=== PATIENT | female | born 1985 | race Caucasian/White ===

== ENCOUNTER 2016-06-28 00:19 | Emergency (ER) | payer MEDICAID, OTHER, SELFPAY ==
[2016-06-28 00:36] VITALS: BP 144/97
[2016-06-28] MEDS ORDERED: Oxymetazoline 0.05% Nasal Spray 15 ML Bottle NAS STA (00:42)
--- NOTE | 2016-06-28 00:50 | EDM.PDOC ---
ED HPI ENT - General Chief Complaint: ENT Problem Stated Complaint: LEFT EARACHE Time Seen by Provider: 06/28/16 00:28 Source of Information: Reports: Patient, RN notes reviewed History Limitations: Reports: No limitations - History of Present Illness INITIAL COMMENTS - FREE TEXT/NARRATIVE: The patient states that she developed a left earache morning, 2016. There was no injury to the ear. She reports a recent viral URI, and she is a smoker. The patient instilled some "Ear On" solution, and when that did not work, she instilled some rubbing alcohol into the ear. This did not work, either. No prior similar symptoms. The patient does not have a PCP. - Related Data Allergies/ADRs: Allergies Allergy/AdvReac Type Severity Reaction Status Date / Time latex Allergy Rash Verified 06/28/16 00:30 Home Meds: Home Meds . [No Known Home Meds] 09/24/14 [History] Past Medical History - Past Surgical History HEENT Surgical History: Reports: Oral surgery (Numerous dental extractions) GI Surgical History: Reports: Cholecystectomy Female Surgical History: Reports: Tubal ligation Social & Family History - Tobacco Use Smoking Status *Q: Current Every Day Smoker Years of Tobacco use: 15 Packs/Tins Daily: 0.3 Packs/Tins Daily Comment: Down from 1 ppd - Caffeine Use Caffeine Use: Reports: None - Alcohol Use Alcohol Use History: Yes Date/Time of Last Drink Comment: Quit 03/31/2016 - Recreational Drug Use Recreational Drug Use: No - Living Situation & Occupation Living situation: Reports: , with spouse, with family (4 kids) Occupation: unemployed ED ROS ENT - Review of Systems Review Of Systems: See Below Constitutional: Reports: no symptoms HEENT: Reports: Other (Current viral URI symptoms) Respiratory: Reports: No Symptoms Cardiovascular: Reports: No symptoms Endocrine: Reports: no symptoms GI/Abdominal: Reports: No symptoms : Reports: no symptoms Musculoskeletal: Reports: no symptoms Skin: Reports: no symptoms Neurological: Reports: No Symptoms Psychiatric: Reports: No symptoms Hematologic/Lymphatic: Reports: no symptoms Immunologic: Reports: no symptoms ED EXAM, ENT - Physical Exam Exam: See Below Exam Limited By: No limitations General Appearance: alert, WD/WN, mild distress Eye Exam: bilateral eye: EOMI, normal inspection Ears: normal external exam, normal canal, hearing grossly normal, TM erythema ( Left only. No sign of purulent. No air-fluid level seen, but the tympanic membrane appears to be bulging.) Nose: normal inspection, normal mucousa, no blood Mouth/Throat: Normal inspection, Normal gums, Normal lips, Normal teeth, Other ( Posterior oropharyngeal erythema) Head: atraumatic, normocephalic Neck: normal inspection, supple, non-tender, full range of motion. No: lymphadenopathy (L), lymphadenopathy (R) Course - Vital Signs Last Recorded V/S: Last Vital Signs Temp 36.2 C 06/28/16 00:27 Pulse 89 06/28/16 00:27 Resp 18 06/28/16 00:27 BP 144/97 H 06/28/16 00:27 Pulse Ox 99 06/28/16 00:27 - Orders/Labs/Meds Meds: Medications Discontinued Medications Generic Name Dose Route Start Last Admin Trade Name Freq PRN Reason Stop Dose Admin Oxymetazoline HCl 1 ml 06/28/16 00:42 06/28/16 00:48 Afrin Original 0.05% Nasal [place] WINSOME 06/28/16 00:43 1 ml ONETIME STA Administration - Re-Assessments/Exams Free Text/Narrative Re-Assessment/Exam: 06/28/16 00:50 The patient appears to have left serous otitis media, likely related to swelling of the left eustachian tube due to a viral URI, made worse by smoking. For [facility]'s purposes, I will have the nurse instill oxymetazoline nasal spray, and then tomorrow have her purchase purchase a pump mist bottle of the same, along with nasal saline spray without a preservative. I will refer her to ENT, should her symptoms not improve. Departure - Departure Time of Disposition: 00:52 Disposition: Home, Self-Care 01 Condition: fair Clinical Impression: Left serous otitis media Instructions: Otitis Media, Adult, [id number] Referrals: PCP,None [Primary Care Provider] - Estevan Casas MD [Physician] - Forms: ED Department Discharge Additional Instructions: [facility] a [facility] earache. On examination, you have inflammation of your left middle ear, a condition known as serous otitis media. There is no infection, therefore antibiotics won' t help. The nurse had you spray some nasal decongestant spray up your nose. In the morning, purchase oxymetazoline nasal spray in a "pump mist bottle - if you have trouble finding this, as your pharmacist to help you. Generic scar just as good as brand names. [place] one spray up your left nostril, wait 5 minutes, then spray a second spray up your left nostril. Repeat this every 12 hours, for a maximum of 5 days. Do not use this beyond 5 days, as that can then CAUSE swelling. Also purchase nasal saline in a pressurized can, such as "Simply Saline". It is important that the saline you purchase DOES NOT HAVE A PRESERVATIVE. [place] this up your left nostril many times per day. One of the reasons this happened to you is because you smoke. We STRONGLY recommend you consider quitting smoking. If your symptoms do not improve within a couple of days, please followup with the ENT Dr. Casas. If any other problems, please do not hesitate to return to the ER.
== END 2016-06-28 01:04 | disposition home or self-care (01) ==
LOC: JD.ED 00:19
DX: H65.02 Acute serous otitis media, left ear (principal); F17.210 Nicotine dependence, cigarettes, uncomplicated; Z90.49 Acquired absence of other specified parts of digestive tract; Z91.040 Latex allergy status
CPT/HCPCS: 99282; A9270

== ENCOUNTER 2017-07-09 17:22 | Emergency (ER) | payer SELFPAY ==
[2017-07-09 17:36] VITALS: BP 145/83
--- NOTE | 2017-07-09 19:05 | EDM.PDOC ---
ED HPI GENERAL MEDICAL PROBLEM - General Chief Complaint: Gastrointestinal Problem Stated Complaint: BLOOD IN STOOL Time Seen by Provider: 07/09/17 18:20 Source of Information: Reports: Patient History Limitations: Reports: No Limitations - History of Present Illness INITIAL COMMENTS - FREE TEXT/NARRATIVE: The patient states that she had painless bright red blood per rectum with a bowel movement around 17:30 tonight. She states that after her bowel movement, en route to the ED, she developed lower abdominal cramps and some rectal pain. She states that she felt lightheaded, although it may have been related to an anxiety attack. The patient states that she has a history of external hemorrhoids, but has not previously had bleeding like that. The patient does not have a PCP. Abdominal Pain Score (Numeric/FACES): 8 - Related Data Allergies Allergy/AdvReac Type Severity Reaction Status Date / Time latex Allergy Rash Verified 07/09/17 17:36 Home Meds: Home Meds . [No Known Home Meds] 09/24/14 [History] Past Medical History Gastrointestinal History: Reports: Hemorrhoids (external) [employer]INTENANCE History: Reports: Therapeutic (x 1) Endocrine/Metabolic History: Reports: Obesity/BMI 30+ - Past Surgical History HEENT Surgical History: Reports: Oral Surgery ([place] teeth extraction) GI Surgical History: Reports: Cholecystectomy Female Surgical History: Reports: D&C (x 1), Tubal Ligation, Other (See Below ) (Therapeutic x 1) Social & Family History - Tobacco Use Smoking Status *Q: Current Every Day Smoker Years of Tobacco use: 20 Packs/Tins Daily: 0.4 Packs/Tins Daily Comment: Down from 03/23 ppd - Caffeine Use Caffeine Use: Reports: None - Alcohol Use Alcohol Use History: Yes Alcohol Use Frequency: Socially - Recreational Drug Use Recreational Drug Use: No - Living Situation & Occupation Living situation: Reports: , with Spouse, with Family (4 kids) Occupation: Unemployed ED ROS GENERAL - Review of Systems Review Of Systems: ROS reveals no pertinent complaints other than HPI. Neurological: Reports: Headache (frequent) ED EXAM, GI/ABD - Physical Exam Exam: See Below Exam Limited By: No Limitations General Appearance: Alert, WD/WN, No Apparent Distress Eyes: Bilateral: Normal Appearance, EOMI Ears: Normal External Exam, Hearing Grossly Normal Nose: Normal Inspection, No Blood Throat/Mouth: Normal Inspection, Normal Lips, Normal Voice, No Airway Compromise Head: Atraumatic, Normocephalic Neck: Normal Inspection, Full Range of Motion Respiratory/Chest: No Respiratory Distress, Lungs Clear, Normal Breath Sounds, No Accessory Muscle Use Cardiovascular: Normal Peripheral Pulses, Regular Rate, Rhythm, No Gallop, No JVD, No Murmur, No Rub GI/Abdominal Exam: Normal Bowel Sounds, Soft, Non-Tender, No Organomegaly, No Distention, No Abnormal Bruit, No Mass, Other (Obese) (Female) Exam: Deferred Rectal (Female) Exam: Normal Exam, Normal Rectal Tone, Heme + Stool, Hemorrhoids (small, noninflamed. Some tenderness to the 7:00 hemorrhoid. No active bleeding.). No: Perirectal Abscess (None palpated), Rectal Fissure ( None seen) Back Exam: Normal Inspection, Full Range of Motion, NT Extremities: Normal Inspection, Normal Range of Motion, No Pedal Edema, Normal Capillary Refill Neurological: Alert, Oriented, Normal Cognition, No Motor/Sensory Deficits Psychiatric: Normal Affect Skin Exam: Warm, Dry, Intact, Normal Color, No Rash Course - Vital Signs Last Recorded V/S: Last Vital Signs Temp 37.1 C 07/09/17 17:33 Pulse 97 07/09/17 17:33 Resp 16 07/09/17 17:33 BP 145/83 H 07/09/17 17:33 Pulse Ox 97 07/09/17 17:33 Orthostatic Blood Pressure [ 135/82 Standing] Orthostatic Blood Pressure [ 129/85 Supine] - Orders/Labs/Meds Orders: Active Orders 24 hr Category Date Time Status Hemoccult [Fecal Occult Blood Collection] [RC] Care 07/09/17 18:55 Active ASDIRECTED Orthostatic Vital Signs [RC] ASDIRECTED Care 07/09/17 18:57 Active Orthostatic Vital Signs [RC] STAT Care 07/09/17 18:59 Inactive CBC WITH MANUAL DIFF [HEME] Stat Lab 07/09/17 20:13 Results Labs: Laboratory Tests 07/09/17 Range/Units 20:13 WBC 6.87 (3.98-10.04) K/mm3 RBC 4.36 (3.98-5.22) M/mm3 Hgb 15.4 (11.2-15.7) gm/L Hct 44.4 (34.1-44.9) % MCV 101.8 H (79.4-94.8) fl MCH 35.3 H (25.6-32.2) pg MCHC 34.7 (32.2-35.5) g/dl RDW Std Deviation 46.0 (36.4-46.3) fL Plt Count 281 (182-369) K/mm3 MPV 10.3 (9.4-12.3) fl - Re-Assessments/Exams Free Text/Narrative Re-Assessment/Exam: 07/09/17 19:00 On rectal exam, the patient complained of quite a bit of tenderness, however, I did not palpate any perirectal swelling consistent with a perirectal abscess, and by history, the patient reported painless bright red blood per rectum. Perirectal abscesses cause significant discomfort, however, do not bleed much, if any. Clinically, I suspect that the patient is suffering from non-inflamed external hemorrhoids, but will require a colonoscopy to be sure. For today's purposes, I have ordered orthostatics and a CBC. Presuming both are within normal limits, I will refer the patient Dr. Posada for colonoscopy. I do not see an indication for a CT scan to evaluate for a perirectal abscess at this time. 07/09/17 19:20 The patient is not orthostatic. 07/09/17 20:13 Notified by Yelitza HURST that lab is only now attempting to draw the CBC. 07/09/17 20:36 Test results discussed with the patient. As above, the patient is not orthostatic, and her hemoglobin is well within normal limits. I will discharge her home with a referral to Dr. Posada, with whom she can arrange for an outpatient colonoscopy. Departure - Departure Time of Disposition: 20:37 Disposition: Home, Self-Care 01 Condition: Good Clinical Impression: BRBPR (bright red blood per rectum) - Discharge Information Referrals: PCP,None [Primary Care Provider] - Donald Posada MD [Physician] - Forms: ED Department Discharge Additional Instructions: You were seen in the emergency room for painless bright red blood per rectum. Workup in the ER included a CBC and positional blood pressure checks, both of which were normal. On physical examination, no obvious source of bleeding was found, but based on your history, it is MOST LIKELY due to an external hemorrhoid. Follow-up with the surgeon Dr. Posada to arrange for a colonoscopy. If any other problems, please do not hesitate to return to the ER. - My Orders Last 24 Hours: My Active Orders 07/09/17 18:55 Hemoccult [Fecal Occult Blood Collection] [RC] ASDIRECTED 07/09/17 18:57 Orthostatic Vital Signs [RC] ASDIRECTED 07/09/17 18:59 Orthostatic Vital Signs [RC] STAT 07/09/17 20:13 CBC WITH MANUAL DIFF [HEME] Stat - Assessment/Plan Last 24 Hours: My Active Orders 07/09/17 18:55 Hemoccult [Fecal Occult Blood Collection] [RC] ASDIRECTED 07/09/17 18:57 Orthostatic Vital Signs [RC] ASDIRECTED 07/09/17 18:59 Orthostatic Vital Signs [RC] STAT 07/09/17 20:13 CBC WITH MANUAL DIFF [HEME] Stat
== END 2017-07-09 20:45 | disposition home or self-care (01) ==
LOC: JD.ED 17:22
DX: K62.5 Hemorrhage of anus and rectum (principal); F17.210 Nicotine dependence, cigarettes, uncomplicated; Z91.040 Latex allergy status; Z90.49 Acquired absence of other specified parts of digestive tract
CPT/HCPCS: 36415; 82270; 85025; 99283; 99283-25

== ENCOUNTER 2017-07-21 10:22 | Day surgery (SDC) | payer SELFPAY ==
[~2017-07-21 10:22] MED LIST: Dexamethasone 4 MG/ML SDV ONE; Lactated Ringers 1,000 ML IV SCH; Lidocaine 1% 4 ML ONE; Lidocaine 1%/Sod Bicarbonate in NS 8.4% 1 ML Syringe IDERM PRN; Midazolam 1 MG/ML 2 ML SDV ONE; Ondansetron 4 MG/2 ML SDV ONE; Propofol 200 MG/20 ML SDV ONE; Sodium Chloride 0.9% 10 ML Syringe FLUSH PRN; fentaNYL 100 MCG/2 ML SDV ONE
--- NOTE | 2017-07-21 10:48 | PCM.PREANE ---
Preanesthetic Assessment - Procedure Proposed Procedure: Anoscopy with rubber band ligation - Anesthesia/Transfusion/Family Hx Anesthesia History: Prior Anesthesia Reaction Type of Anesthesia Reaction: Excessive Nausea/Vomiting Family History of Anesthesia Reaction: No Transfusion History: No Prior Transfusion(s) - Review of Systems General: No Symptoms Pulmonary: No Symptoms Cardiovascular: No Symptoms Gastrointestinal: Other (GERD) Neurological: No Symptoms Other: Reports: Depression, Anxiety - Physical Assessment NPO Status Date: 07/20/17 NPO Status Time: 23:59 Pulse: 72 O2 Sat by Pulse Oximetry: 97 Respiratory Rate: 16 Blood Pressure: 120/87 Temperature: 36.4 C Height: 1.68 m Weight: 108.409 kg ASA Class: 2 Mental Status: Alert & Oriented x3 Airway Class: Mallampati = 2 Dentition: Reports: Normal Dentition Thyro-Mental Finger Breadths: 3 Mouth Opening Finger Breadths: 3 ROM/Head Extension: Full Lungs: Clear to Auscultation, Normal Respiratory Effort Cardiovascular: Regular Rate, Regular Rhythm - Allergies Allergies/Adverse Reactions: Allergies Allergy/AdvReac Type Severity Reaction Status Date / Time latex Allergy Rash Verified 07/20/17 12:53 - Blood Blood Available: No Product(s) Available: None - Anesthesia Plan Pre-Op Medication Ordered: None - Acknowledgements Anesthesia Type Planned: MAC Pt an Appropriate Candidate for the Planned Anesthesia: Yes Alternatives and Risks of Anesthesia Discussed w Pt/Guardian: Yes Pt/Guardian Understands and Agrees with Anesthesia Plan: Yes PreAnesthesia Questionnaire HEENT History: Reports: None Cardiovascular History: Reports: Heart Murmur Other Respiratory History: smoker Gastrointestinal History: Reports: GERD, Hemorrhoids, Other (See Below) Other Gastrointestinal History: gastric ulcer Genitourinary History: Reports: None 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: , 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 Musculoskeletal History: Reports: None Neurological History: Reports: Migraines Psychiatric History: Reports: Anxiety, Depression Endocrine/Metabolic History: Reports: Obesity/BMI 30+ Hematologic History: Reports: None Immunologic History: Reports: None Oncologic (Cancer) History: Reports: None Dermatologic History: Reports: None - Past Surgical History Head Surgeries/Procedures: Reports: None HEENT Surgical History: Reports: Oral Surgery Cardiovascular Surgical History: Reports: None Respiratory Surgical History: Reports: None GI Surgical History: Reports: Cholecystectomy Female Surgical History: Reports: D&C, Tubal Ligation, Other (See Below) Endocrine Surgical History: Reports: None Neurological Surgical History: Reports: None Musculoskeletal Surgical History: Reports: None Oncologic Surgical History: Reports: None Dermatological Surgical History: Reports: None - SUBSTANCE USE Smoking Status *Q: Current Every Day Smoker Tobacco Use Within Last Twelve Months: Cigarettes Second Hand Smoke Exposure: No Recreational Drug Use History: No - HOME MEDS Home Medications: Home Meds Aspirin/Acetaminophen/Caffeine [Migraine Relief Caplet] 1 - 2 tab PO Q6H PRN 04/08 [History] Melatonin 1 mg PO BEDTIME PRN 07/20/17 [History] - CURRENT (IN HOUSE) MEDS Current Meds: Current Medications Lactated Ringer's (Ringers, Lactated) 1,000 mls @ 125 mls/hr IV ASDIRECTED TAMMY Stop: 07/21/17 18:00 Lidocaine/Sodium Bicarbonate (Buffered Lidocaine 1% In Ns 8.4%) 0.25 ml IDERM ONETIME PRN PRN Reason: Prior to IV Start Stop: 07/21/17 18:00 Sodium Chloride (Saline Flush) 10 ml FLUSH ASDIRECTED PRN PRN Reason: Keep Vein Open Stop: 07/21/17 18:00 Discontinued Medications Dexamethasone (Dexamethasone) Confirm Administered Dose 4 mg .ROUTE .STK-MED ONE Stop: 07/21/17 10:15 Fentanyl (Sublimaze) Confirm Administered Dose 100 mcg .ROUTE .STK-MED ONE Stop: 07/21/17 10:14 Lidocaine HCl (Xylocaine-Mpf 1%) Confirm Administered Dose 4 mls @ as directed .ROUTE .STK-MED ONE Stop: 07/21/17 10:15 Midazolam HCl (Versed 1 Mg/Ml) Confirm Administered Dose 2 mg .ROUTE .STK-MED ONE Stop: 07/21/17 10:14 Ondansetron HCl (Zofran) Confirm Administered Dose 4 mg .ROUTE .STK-MED ONE Stop: 07/21/17 10:15 Propofol (Diprivan 20 Ml) Confirm Administered Dose 200 mg .ROUTE .STK-MED ONE Stop: 07/21/17 10:14
--- NOTE | 2017-07-21 11:14 | PCM.OPNOTE ---
- General Post-Op/Procedure Note Date of Surgery/Procedure: 07/21/17 Operative Procedure(s): 1. Anoscopy. 2. 3 column rubber band ligation of internal hemorrhoids Findings: 3 column uncomplicated internal hemorrhoids Pre Op Diagnosis: Grade 2 symptomatic hemorrhoids Post-Op Diagnosis: Same Anesthesia Technique: MAC, Moderate Sedation Primary Surgeon: Donald Posada Pathology: None EBL in mLs: 0 Complications: None Condition: Good Free Text/Narrative:: After adequate IV sedation and analgesia was obtained the patient was placed in the prone jackknife position with her buttocks taped and with monitoring. Perianal inspection revealed the slightly prolapsing internal 3 column hemorrhoids. Anoscopy confirmed the hemorrhoids. Rubber bands were placed in the right posterior right anterior and left lateral positions. She tolerated the procedure without any issues.
--- NOTE | 2017-07-21 11:23 | PCM48HPAN ---
Post Anesthesia Note - EVALUATION WITHIN 48HRS OF ANESTHETIC Vital Signs in Normal Range: Yes Patient Participated in Evaluation: Yes Respiratory Function Stable: Yes Airway Patent: Yes Cardiovascular Function Stable: Yes Hydration Status Stable: Yes Pain Control Satisfactory: Yes Nausea and Vomiting Control Satisfactory: Yes Mental Status Recovered: Yes Pulse Rate: 77 SaO2: 95 Resp Rate: 12 Temperature: 36.2 C Blood Pressure: 177/54
[2017-07-21 11:29] VITALS: BP 117/54
[2017-07-21] MEDS ORDERED: Ketorolac 30 MG/ML SDV IVPUSH SCH (11:38)
== END 2017-07-21 12:00 | disposition home or self-care (01) ==
LOC: JD.SDS 10:22
PROVIDERS: ATTEND Surgery
DX: K64.1 Second degree hemorrhoids (principal); F17.210 Nicotine dependence, cigarettes, uncomplicated; K21.9 Gastro-esophageal reflux disease without esophagitis; G43.909 Migraine, unspecified, not intractable, without status migrainosus; F41.9 Anxiety disorder, unspecified; F32.9 Major depressive disorder, single episode, unspecified; Z79.899 Other long term (current) drug therapy
CPT/HCPCS: 46221; J1100; J1885; J2001; J2250; J2405; J3010; J7120; J2704

== ENCOUNTER 2019-04-20 21:11 | Emergency (ER) | payer MEDICAID, OTHER ==
[2019-04-20 21:21] VITALS: BP 145/85; PULSE 93
[2019-04-20] MEDS ORDERED: Ondansetron 4 MG/2 ML SDV IVPUSH ONE (21:39)
[2019-04-20] MEDS ORDERED: HYDROmorphone 1 MG/ML Syringe IVPUSH STA (21:39)
[2019-04-20] MEDS ORDERED: Sodium Chloride 0.9% 1,000 ML IV ONE (21:40)
--- NOTE | 2019-04-20 22:02 | EDM.PDOC ---
ED HPI GENERAL MEDICAL PROBLEM - General Chief Complaint: Abdominal Pain Stated Complaint: STOMACH PAIN, BACK PAIN COUGHING Time Seen by Provider: 04/20/19 21:34 Source of Information: Reports: Patient, RN Notes Reviewed History Limitations: Reports: No Limitations - History of Present Illness INITIAL COMMENTS - FREE TEXT/NARRATIVE: Patient is a 33-year-old female who presents to the ED for the evaluation of multiple different complaints. Patient reports having a productive cough for around 1 week now. She states that she is getting some brown chunky like mucus coming up with her cough. However she denies any shortness of breath. Patient notes that yesterday she started having some nausea and loose stools as well, and states she has vomited 5 or 6 times a day with 2 loose stools. She is complaining of fevers, chills, headache, all over body aches, dysuria, and only being able to pee a little bit. She states she is not able to keep much down for food or fluids at all. She tried to drink a little bit of water today however she threw it right back up. Patient states that the vomiting and all over body pain is worsened by the harsh cough as well. Patient notes that the nausea vomiting and diarrhea all started around the morning hours of April 19. She also states that her has strep a as well. Patient states she has had a prior cholecystectomy, but still retains her appendix. Treatments [employer] FINISHING: Reports: Other (see below) Other Treatments [employer]: antacids Middle Abdominal Pain Score (Numeric/FACES): 10 - Related Data Allergies Allergy/AdvReac Type Severity Reaction Status Date / Time latex Allergy Rash Verified 07/20/17 12:53 Home Meds: Home Meds Ondansetron [Zofran ODT] 4 mg PO Q8H PRN #12 tab.dis 04/20/19 [Rx] cephALEXin [Cephalexin] 500 mg PO BID #10 capsule 04/20/19 [Rx] Past Medical History HEENT History: Reports: None Cardiovascular History: Reports: Heart Murmur Other Respiratory History: smoker Gastrointestinal History: Reports: GERD, Hemorrhoids, Other (See Below) Other Gastrointestinal History: gastric ulcer Genitourinary History: Reports: None 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 Neurological History: Reports: Migraines Psychiatric History: Reports: Anxiety, Depression Endocrine/Metabolic History: Reports: Obesity/BMI 30+ Hematologic History: Reports: None Immunologic History: Reports: None Oncologic (Cancer) History: Reports: None Dermatologic History: Reports: None - Past Surgical History Head Surgeries/Procedures: Reports: None HEENT Surgical History: Reports: Oral Surgery Cardiovascular Surgical History: Reports: None Respiratory Surgical History: Reports: None GI Surgical History: Reports: Cholecystectomy Female Surgical History: Reports: D&C, Tubal Ligation Endocrine Surgical History: Reports: None Neurological Surgical History: Reports: None Musculoskeletal Surgical History: Reports: None Oncologic Surgical History: Reports: None Dermatological Surgical History: Reports: None Social & Family History - Tobacco Use Smoking Status *Q: Current Every Day Smoker Years of Tobacco use: 15 Packs/Tins Daily: 0.3 Second Hand Smoke Exposure: Yes - Caffeine Use Caffeine Use: Reports: Coffee, Energy Drinks, Tea - Recreational Drug Use Recreational Drug Use: No - Living Situation & Occupation Living situation: Reports: , with Spouse, with Family (4 kids) Occupation: Unemployed ED ROS GENERAL - Review of Systems Review Of Systems: See Below Constitutional: Reports: Fever, Chills, Malaise (generalized) Respiratory: Reports: Cough, Sputum. Denies: Shortness of Breath Cardiovascular: Denies: Chest Pain GI/Abdominal: Reports: Abdominal Pain (generalized, but worse in epigastrium), Diarrhea, Nausea, Vomiting : Reports: Dysuria, Urinary Retention (states she is only peeing a little bit) ED EXAM, GI/ABD - Physical Exam Exam: See Below Exam Limited By: No Limitations General Appearance: Alert, WD/WN, No Apparent Distress (pt appears a little over dramatic in presentation, not actively heaving, but has emesis bag next to her) Eyes: Bilateral: Normal Appearance, EOMI Nose: Normal Inspection Throat/Mouth: Normal Inspection, Normal Lips, Normal Teeth, Normal Gums, Normal Oropharynx, Normal Voice, No Airway Compromise Head: Atraumatic, Normocephalic Neck: Normal Inspection Respiratory/Chest: No Respiratory Distress, Lungs Clear, Normal Breath Sounds, No Accessory Muscle Use, Chest Non-Tender Cardiovascular: Normal Peripheral Pulses, Regular Rate, Rhythm, No Murmur GI/Abdominal Exam: Normal Bowel Sounds, Soft, No Distention, No Mass, Tender ( over epigastrium) Extremities: Normal Inspection, Normal Capillary Refill Neurological: Alert, Oriented, CN II-XII Intact (grossly), Normal Cognition, No Motor/Sensory Deficits Psychiatric: Normal Affect, Normal Mood Skin Exam: Warm, Dry, Intact, Normal Color, No Rash Course - Vital Signs Last Recorded V/S: Last Vital Signs Temp 97.8 F 04/20/19 21:17 Pulse 93 04/20/19 21:17 Resp 24 H 04/20/19 21:17 BP 145/85 H 04/20/19 21:17 Pulse Ox 98 04/20/19 21:17 - Orders/Labs/Meds Orders: Active Orders 24 hr Category Date Time Status CULTURE STREP A CONFIRMATION [] Stat Lab 04/20/19 21:50 Results CULTURE URINE [] Routine Lab 04/20/19 22:35 Results STREP SCRN A RAPID W CULT CONF [] Stat Lab 04/20/19 21:50 Results Labs: Laboratory Tests 04/20/19 04/20/19 04/20/19 Range/Units 21:50 21:50 22:05 WBC 11.57 H (3.98-10.04) K/mm3 RBC 4.50 (3.98-5.22) M/mm3 Hgb 15.7 (11.2-15.7) gm/dl Hct 44.4 (34.1-44.9) % MCV 98.7 H (79.4-94.8) fl MCH 34.9 H (25.6-32.2) pg MCHC 35.4 (32.2-35.5) g/dl RDW Std Deviation 44.9 (36.4-46.3) fL Plt Count 269 (182-369) K/mm3 MPV 10.5 (9.4-12.3) fl Neutrophils % (Manual) 65 H (40-60) % Band Neutrophils % 0 (0-10) % Lymphocytes % (Manual) 25 (20-40) % Atypical Lymphs % 0 % Monocytes % (Manual) 7 (2-10) % Eosinophils % (Manual) 3 (0.7-5.8) % Basophils % (Manual) 0 L (0.1-1.2) Platelet Estimate Adequate Anisocytosis 1+ slight RBC Morph Comment Not Reportable Sodium 137 (136-145) mEq/L Potassium 3.5 (3.5-5.1) mEq/L Chloride 102 (98-107) mEq/L Carbon Dioxide 23 (21-32) mEq/L Anion Gap 15.5 H (5-15) BUN 11 (7-18) mg/dL Creatinine 0.9 (0.55-1.02) mg/dL Est Cr Clr Drug Dosing 82.45 mL/min Estimated GFR (MDRD) > 60 (>60) mL/min BUN/Creatinine Ratio 12.2 L (14-18) Glucose 102 (74-106) mg/dL Calcium 8.7 (8.5-10.1) mg/dL Total Bilirubin 1.2 H (0.2-1.0) mg/dL AST 20 (15-37) U/L ALT 29 (14-59) U/L Alkaline Phosphatase 64 (46-116) U/L Total Protein 7.4 (6.4-8.2) g/dl Albumin 3.8 (3.4-5.0) g/dl Globulin 3.6 gm/dL Albumin/Globulin Ratio 1.1 (1-2) Lipase 238 (73-393) U/L Urine Color Yellow (Yellow) Urine Appearance Clear (Clear) Urine pH 5.5 (5.0-8.0) Ur Specific Driver > or = 1.030 (1.005-1.030) Urine Protein Negative (Negative) Urine Glucose (UA) Negative (Negative) Urine Ketones Negative (Negative) Urine Occult Blood Trace-intact H (Negative) Urine Nitrite Negative (Negative) Urine Bilirubin Negative (Negative) Urine Urobilinogen 0.2 (0.2-1.0) Ur Leukocyte Esterase Trace H (Negative) Urine RBC 0-5 (0-5) /hpf Urine WBC 5-10 H (0-5) /hpf Ur Squamous Epith Cells 0-5 (0-5) /hpf Urine Bacteria Few (FEW) /hpf Urine Mucus Few (FEW) /hpf Urine HCG, Qual (NEGATIVE) 04/20/19 Range/Units 22:05 WBC (3.98-10.04) K/mm3 RBC (3.98-5.22) M/mm3 Hgb (11.2-15.7) gm/dl Hct (34.1-44.9) % MCV (79.4-94.8) fl MCH (25.6-32.2) pg MCHC (32.2-35.5) g/dl RDW Std Deviation (36.4-46.3) fL Plt Count (182-369) K/mm3 MPV (9.4-12.3) fl Neutrophils % (Manual) (40-60) % Band Neutrophils % (0-10) % Lymphocytes % (Manual) (20-40) % Atypical Lymphs % % Monocytes % (Manual) (2-10) % Eosinophils % (Manual) (0.7-5.8) % Basophils % (Manual) (0.1-1.2) Platelet Estimate Anisocytosis RBC Morph Comment Sodium (136-145) mEq/L Potassium (3.5-5.1) mEq/L Chloride (98-107) mEq/L Carbon Dioxide (21-32) mEq/L Anion Gap (5-15) BUN (7-18) mg/dL Creatinine (0.55-1.02) mg/dL Est Cr Clr Drug Dosing mL/min Estimated GFR (MDRD) (>60) mL/min BUN/Creatinine Ratio (14-18) Glucose (74-106) mg/dL Calcium (8.5-10.1) mg/dL Total Bilirubin (0.2-1.0) mg/dL AST (15-37) U/L ALT (14-59) U/L Alkaline Phosphatase (46-116) U/L Total Protein (6.4-8.2) g/dl Albumin (3.4-5.0) g/dl Globulin gm/dL Albumin/Globulin Ratio (1-2) Lipase (73-393) U/L Urine Color (Yellow) Urine Appearance (Clear) Urine pH (5.0-8.0) Ur Specific Driver (1.005-1.030) Urine Protein (Negative) Urine Glucose (UA) (Negative) Urine Ketones (Negative) Urine Occult Blood (Negative) Urine Nitrite (Negative) Urine Bilirubin (Negative) Urine Urobilinogen (0.2-1.0) Ur Leukocyte Esterase (Negative) Urine RBC (0-5) /hpf Urine WBC (0-5) /hpf Ur Squamous Epith Cells (0-5) /hpf Urine Bacteria (FEW) /hpf Urine Mucus (FEW) /hpf Urine HCG, Qual Negative (NEGATIVE) Meds: Medications Discontinued Medications Generic Name Dose Route Start Last Admin Trade Name Coretta PRN Reason Stop Dose Admin Al Hydroxide/Mg Hydroxide 30 0 ml 04/20/19 22:50 04/20/19 23:14 ml/ Lidocaine HCl 15 ml PO 04/20/19 22:51 45 ml ONETIME ONE Administration Hydromorphone HCl 0.5 mg 04/20/19 21:39 04/20/19 22:06 Dilaudid IVPUSH 04/20/19 21:40 0.5 mg ONETIME STA Administration Sodium Chloride 1,000 mls @ 999 mls/hr 04/20/19 21:40 04/20/19 22:04 Normal Saline IV 04/20/19 22:40 999 mls/hr ASDIRECTED ONE Administration Ketorolac Tromethamine 30 mg 04/20/19 22:44 04/20/19 23:13 Toradol IVPUSH 04/20/19 22:45 30 mg ONETIME ONE Administration Metoclopramide HCl 10 mg 04/20/19 22:44 04/20/19 23:12 Reglan IVPUSH 04/20/19 22:45 10 mg ONETIME ONE Administration Ondansetron HCl 4 mg 04/20/19 21:39 04/20/19 22:05 Zofran IVPUSH 04/20/19 21:40 4 mg ONETIME ONE Administration - Re-Assessments/Exams Free Text/Narrative Re-Assessment/Exam: 04/20/19 22:01 Patient presents to the ED for evaluation of generalized abdominal pain, fever/ chills, nausea/vomiting/diarrhea, and a headache. I have ordered some labs to include CBC, CMP, lipase, UA, hCG, 0.5 mg Dilaudid, 4 mg Zofran, and some IV fluids for initial management. 04/20/19 22:49 Patient's laboratory evaluation is back, demonstrates a white blood cell count of 11.57 with 65% neutrophils no bands, BMP is mostly unremarkable. Lipase is within normal limits, influenza screen is negative, the strep screen is negative. Urinalysis shows a trace occult blood, trace leukocyte esterase and 5 -10 white blood cells, with her symptoms she could be suffering from urethritis , she will be started on Keflex 500 mg twice daily for about 5 days to see if this does not help relieve some of her symptoms, chest x-ray shows no focal infiltrate, no bony abnormalities this was reviewed by myself and Dr. Peralta. Patient was reassessed at bedside, states she is feeling mildly better, but notes that her nausea is not much better and her stomach still kind of hurts all over. I have ordered 10 mg of Reglan and 30 mg of Toradol for further management. Will try a GI cocktail as well as see if this does not help the pain in her stomach. Departure - Departure Time of Disposition: 22:51 Disposition: Home, Self-Care 01 Condition: Fair Clinical Impression: Urethritis, Gastroenteritis - Discharge Information *PRESCRIPTION DRUG MONITORING PROGRAM REVIEWED*: No *COPY OF PRESCRIPTION DRUG MONITORING REPORT IN PATIENT HILDA: No Prescriptions: cephALEXin [Cephalexin] 500 mg PO BID #10 capsule Ondansetron [Zofran ODT] 4 mg PO Q8H PRN #12 tab.dis PRN Reason: Nausea Instructions: Nausea and Vomiting, Adult, [id number] Referrals: PCP,None [Primary Care Provider] - Forms: ED Department Discharge Additional Instructions: You have been evaluated in the ED for nausea/vomiting/diarrhea. It is likely that this is caused from a viral gastroenteritis. Laboratory evaluation was mostly unremarkable at today's visit. Influenza swab was negative, strep swab was negative however will be sent for culture for confirmation, you will be made notified if you should need antibiotics for anything if it should grow out. This can take up to 48 hours. You have received IV fluid and medications in the ED to help with the dehydration from the vomiting and diarrhea. Over the next 24-48 hours please try to limit diet to clear liquids and advance as tolerate to a bland diet to alleviate symptoms of nausea/vomiting/diarrhea. Please use the Zofran every 8 hours as needed for nausea. You may take 600 mg ibuprofen every 6 hours for further body aches/pains. Do not exceed 3200 mg of ibuprofen in a 24-hour time span. You were also given a prescription for antibiotics, for suspected UTI, please take as directed until told otherwise. Your urinalysis will be sent for culture , to make sure that we picked an appropriate antibiotic, you will be called and made notified if you should need a change in this antibiotic. Please return to the ED if your symptoms should change or worsen. Sepsis Event Note - Evaluation Sepsis Screening Result: No Definite Risk - Focused Exam Date Exam was Performed: 04/21/19 Time Exam was Performed: 20:12 - My Orders Last 24 Hours: My Active Orders 04/20/19 21:50 CULTURE STREP A CONFIRMATION [RM] Stat STREP SCRN A RAPID W CULT CONF [RM] Stat 04/20/19 22:35 CULTURE URINE [RM] Routine - Assessment/Plan Last 24 Hours: My Active Orders 04/20/19 21:50 CULTURE STREP A CONFIRMATION [RM] Stat STREP SCRN A RAPID W CULT CONF [RM] Stat 04/20/19 22:35 CULTURE URINE [] Routine
[2019-04-20] MEDS ORDERED: Metoclopramide 10 MG/2 ML SDV IVPUSH ONE (22:44)
[2019-04-20] MEDS ORDERED: Ketorolac 30 MG/ML SDV IVPUSH ONE (22:44)
[2019-04-20] MEDS ORDERED: Alum Hydrox/Mag Hydrox/Simeth 30 ML, Lidocaine 2% 15 ML PO ONE ×2 (22:50)
--- NOTE | 2019-04-21 07:30 | CR ---
Chest: Two views of the chest were obtained. Comparison: No previous chest imaging. Heart size and mediastinum are within normal limits. Lungs are clear. Bony structures are unremarkable. Impression: 1. Nothing acute is appreciated on two-view chest x-ray. Diagnostic code #1 This report was dictated in [place] Standard Time
== END 2019-04-21 00:02 | disposition home or self-care (01) ==
LOC: JD.ED 21:11
DX: N34.2 Other urethritis (principal); K52.9 Noninfective gastroenteritis and colitis, unspecified; F17.210 Nicotine dependence, cigarettes, uncomplicated; E66.9 Obesity, unspecified; Z68.34 Body mass index [BMI] 34.0-34.9, adult; Z91.040 Latex allergy status
CPT/HCPCS: 36415; 71046; 80053; 81001; 81025; 83690; 85007; 85027; 87081; 87086; 87430; 87804; 96361; 96374; 96375; 99284; A9270; J1170; J1885; J2405; J2765; J7030

== ENCOUNTER 2020-06-02 04:06 | Observation (INO) | payer MEDICAID ==
[2020-06-02] MEDS ORDERED: HYDROmorphone 1 MG/ML Syringe IVPUSH ONE (04:35)
[2020-06-02] MEDS ORDERED: Ondansetron 4 MG/2 ML SDV IVPUSH ONE (04:35)
[2020-06-02] MEDS ORDERED: Pantoprazole 40 MG Vial IVPUSH ONE (04:42)
--- NOTE | 2020-06-02 04:43 | EDM.PDOC ---
ED HPI GENERAL MEDICAL PROBLEM - General Chief Complaint: Abdominal Pain Stated Complaint: ABDOMINAL PAIN/VOMITING Time Seen by Provider: 06/02/20 04:11 Source of Information: Reports: Patient, Family History Limitations: Reports: No Limitations - History of Present Illness INITIAL COMMENTS - FREE TEXT/NARRATIVE: This is a 34-year-old female. Onset about 3 days ago with nausea vomiting and diarrhea. Apparently her son had the same symptoms and she thought it was just viral gastroenteritis. She has not been able to keep down any fluids over the last 24 to 48 hours. Around 7 PM last night she had sudden onset of severe pain in the epigastric and mid abdomen. She says it feels like there is a knife stuck in her epigastric area that runs down towards her bellybutton. She has had no blood in her vomitus. She has had no blood in her diarrhea. She says she been running a fever of 103 at home but it only lasts for about an hour and then goes away. She has had no cough no congestion. She is not able to stand up straight secondary to the abdominal pain. And she wants to lay on her left side for the best comfort. Her gallbladder has been removed she still has her appendix. He does have a history of peptic ulcers but she says last time she had one was when she was 7 years old so she does not know if this feels like a peptic ulcer. Abdomen Pain Score (Numeric/FACES): 10 - Related Data Allergies Allergy/AdvReac Type Severity Reaction Status Date / Time latex Allergy Rash Verified 06/02/20 04:20 Home Meds: Home Meds . 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 Neurological History: Reports: Migraines Psychiatric History: Reports: Anxiety, Depression Endocrine/Metabolic History: Reports: Obesity/BMI 30+ Hematologic History: Reports: None Immunologic History: Reports: None Oncologic (Cancer) History: Reports: None Dermatologic History: Reports: None - Past Surgical History Head Surgeries/Procedures: Reports: None HEENT Surgical History: Reports: Oral Surgery Cardiovascular Surgical History: Reports: None Respiratory Surgical History: Reports: None GI Surgical History: Reports: Cholecystectomy Female Surgical History: Reports: D&C, Tubal Ligation Endocrine Surgical History: Reports: None Neurological Surgical History: Reports: None Musculoskeletal Surgical History: Reports: None Oncologic Surgical History: Reports: None Dermatological Surgical History: Reports: None Social & Family History - Tobacco Use Tobacco Use Status *Q: Current Every Day Tobacco User Years of Tobacco use: 15 Packs/Tins Daily: 1 - Caffeine Use Caffeine Use: Reports: Coffee, Energy Drinks, Tea - Living Situation & Occupation Living situation: Reports: , with Spouse, with Family (4 kids) Occupation: Unemployed ED ROS GENERAL - Review of Systems Review Of Systems: See Below Constitutional: Reports: Fever, Chills, Fatigue HEENT: Reports: No Symptoms Respiratory: Denies: Shortness of Breath, Cough Cardiovascular: Reports: No Symptoms Endocrine: Reports: No Symptoms GI/Abdominal: Reports: Abdominal Pain, Diarrhea, Nausea, Vomiting : Reports: No Symptoms Musculoskeletal: Reports: No Symptoms Skin: Reports: No Symptoms Neurological: Reports: No Symptoms Psychiatric: Reports: No Symptoms Hematologic/Lymphatic: Reports: No Symptoms ED EXAM, GI/ABD - Physical Exam Exam: See Below Exam Limited By: No Limitations General Appearance: Alert, WD/WN, Moderate Distress Eyes: Bilateral: Normal Appearance Ears: Normal External Exam Nose: Normal Inspection Throat/Mouth: Normal Lips, Normal Voice, No Airway Compromise Head: Normocephalic Neck: Supple Respiratory/Chest: No Respiratory Distress, Lungs Clear, Normal Breath Sounds Cardiovascular: Regular Rate, Rhythm, No Murmur, Tachycardia GI/Abdominal Exam: Other (She is soft in the lower abdomen but mild guarding in the upper abdomen and epigastric area. She has some mild peritoneal irritation in the upper abdomen as well. Not able to press hard enough to determine significance of rebound. Bowel sounds are quiet.) Back Exam: Full Range of Motion Extremities: Normal Inspection, Normal Range of Motion Neurological: Alert, Oriented Psychiatric: Anxious Skin Exam: Warm, Dry Course - Vital Signs Last Recorded V/S: Last Vital Signs Temp 97.1 F 06/02/20 04:17 Pulse 78 06/02/20 05:20 Resp 20 06/02/20 04:17 BP 147/89 H 06/02/20 04:17 Pulse Ox 97 06/02/20 05:20 - Orders/Labs/Meds Orders: Active Orders 24 hr Category Date Time Status Abdomen Pelvis w Cont [CT] Stat Exams 06/02/20 04:35 Taken CULTURE BLOOD [BC] Stat Lab 06/02/20 05:40 Received CULTURE BLOOD [BC] Stat Lab 06/02/20 06:10 Received LACTIC ACID [CHEM] Stat Lab 06/02/20 07:15 Ordered UA W/MICROSCOPIC [URIN] Stat Lab 06/02/20 06:01 Results Lactated Ringers [Ringers, Lactated] 1,000 ml Med 06/02/20 06:45 Active IV ASDIRECTED Sodium Chloride 0.9% [Normal Saline] 1,000 ml Med 06/02/20 04:45 Active IV ASDIRECTED Sodium Chloride 0.9% [Normal Saline] 100 ml Med 06/02/20 05:30 Active IV ASDIRECTED Sodium Chloride 0.9% [Saline Flush] Med 06/02/20 05:30 Active 10 ml FLUSH BOLUS Blood Culture x2 Reflex Set [OM.PC] Stat Oth 06/02/20 05:10 Ordered Medication Orders Sodium Chloride (Normal Saline) 1,000 mls @ 1,000 mls/hr IV ASDIRECTED [facility] Last Admin: 06/02/20 04:51 Dose: 1,000 mls/hr Documented by: SIMONE Sodium Chloride (Normal Saline) 100 mls @ 60 drops/min IV ASDIRECTED TAMMY Last Admin: 06/02/20 05:20 Dose: 60 drops/min Documented by: CLOTILDE Lactated Ringer's (Ringers, Lactated) 1,000 mls @ 500 mls/hr IV ASDIRECTED TAMMY Last Admin: 06/02/20 06:54 Dose: 500 mls/hr Documented by: RANDALLKEL Sodium Chloride (Sodium Chloride 0.9% 10 Ml Syringe) 10 ml FLUSH BOLUS TAMMY Last Admin: 06/02/20 05:20 Dose: 10 ml Documented by: CLOTILDE Labs: Laboratory Tests 06/02/20 06/02/20 06/02/20 Range/Units 04:15 04:15 04:15 WBC 11.81 H (3.98-10.04) K/mm3 RBC 4.39 (3.98-5.22) M/mm3 Hgb 16.2 H (11.2-15.7) gm/dl Hct 46.8 H (34.1-44.9) % MCV 106.6 H D (79.4-94.8) fl MCH 36.9 H (25.6-32.2) pg MCHC 34.6 (32.2-35.5) g/dl RDW Std Deviation 50.3 H (36.4-46.3) fL Plt Count 321 (182-369) K/mm3 MPV 10.5 (9.4-12.3) fl Neut % (Auto) 79.7 H (34.0-71.1) % Lymph % (Auto) 13.7 L (19.3-51.7) % Clarke % (Auto) 6.0 (4.7-12.5) % Eos % (Auto) 0.3 L (0.7-5.8) Baso % (Auto) 0.1 (0.1-1.2) % Neut # (Auto) 9.41 H (1.56-6.13) K/mm3 Lymph # (Auto) 1.62 (1.18-3.74) K/mm3 Clarke # (Auto) 0.71 H (0.24-0.36) K/mm3 Eos # (Auto) 0.04 (0.04-0.36) K/mm3 Baso # (Auto) 0.01 (0.01-0.08) K/mm3 Manual Slide Review Abnormal smear PT (9.7-12.0) SECONDS INR Sodium 141 (136-145) mEq/L Potassium 3.7 (3.5-5.1) mEq/L Chloride 100 (98-107) mEq/L Carbon Dioxide 25 (21-32) mEq/L Anion Gap 19.7 H (5-15) BUN 8 (7-18) mg/dL Creatinine 0.8 (0.55-1.02) mg/dL Est Cr Clr Drug Dosing TNP Estimated GFR (MDRD) > 60 (>60) mL/min BUN/Creatinine Ratio 10.0 L (14-18) Glucose 111 H (74-106) mg/dL Lactic Acid 4.2 H* (0.4-2.0) mmol/L Calcium 9.5 (8.5-10.1) mg/dL Total Bilirubin 1.7 H (0.2-1.0) mg/dL AST 113 H (15-37) U/L ALT 42 (14-59) U/L Alkaline Phosphatase 136 H (46-116) U/L C-Reactive Protein 1.4 H* (<1.0) mg/dL Total Protein 8.4 H (6.4-8.2) g/dl Albumin 4.3 (3.4-5.0) g/dl Globulin 4.1 gm/dL Albumin/Globulin Ratio 1.1 (1-2) Lipase 78 (73-393) U/L HCG, Qual (NEGATIVE) Urine Color (Yellow) Urine Appearance (Clear) Urine pH (5.0-8.0) Ur Specific Gibbon (1.005-1.030) Urine Protein (Negative) Urine Glucose (UA) (Negative) Urine Ketones (Negative) Urine Occult Blood (Negative) Urine Nitrite (Negative) Urine Bilirubin (Negative) Urine Urobilinogen (0.2-1.0) Ur Leukocyte Esterase (Negative) SARS-CoV-2 RNA (LOLIS) (NEGATIVE) 06/02/20 06/02/20 06/02/20 Range/Units 04:15 04:15 06:01 WBC (3.98-10.04) K/mm3 RBC (3.98-5.22) M/mm3 Hgb (11.2-15.7) gm/dl Hct (34.1-44.9) % MCV (79.4-94.8) fl MCH (25.6-32.2) pg MCHC (32.2-35.5) g/dl RDW Std Deviation (36.4-46.3) fL Plt Count (182-369) K/mm3 MPV (9.4-12.3) fl Neut % (Auto) (34.0-71.1) % Lymph % (Auto) (19.3-51.7) % Clarke % (Auto) (4.7-12.5) % Eos % (Auto) (0.7-5.8) Baso % (Auto) (0.1-1.2) % Neut # (Auto) (1.56-6.13) K/mm3 Lymph # (Auto) (1.18-3.74) K/mm3 Clarke # (Auto) (0.24-0.36) K/mm3 Eos # (Auto) (0.04-0.36) K/mm3 Baso # (Auto) (0.01-0.08) K/mm3 Manual Slide Review PT 11.4 (9.7-12.0) SECONDS INR 1.07 Sodium (136-145) mEq/L Potassium (3.5-5.1) mEq/L Chloride (98-107) mEq/L Carbon Dioxide (21-32) mEq/L Anion Gap (5-15) BUN (7-18) mg/dL Creatinine (0.55-1.02) mg/dL Est Cr Clr Drug Dosing Estimated GFR (MDRD) (>60) mL/min BUN/Creatinine Ratio (14-18) Glucose (74-106) mg/dL Lactic Acid (0.4-2.0) mmol/L Calcium (8.5-10.1) mg/dL Total Bilirubin (0.2-1.0) mg/dL AST (15-37) U/L ALT (14-59) U/L Alkaline Phosphatase (46-116) U/L C-Reactive Protein (<1.0) mg/dL Total Protein (6.4-8.2) g/dl Albumin (3.4-5.0) g/dl Globulin gm/dL Albumin/Globulin Ratio (1-2) Lipase (73-393) U/L HCG, Qual Negative (NEGATIVE) Urine Color Yellow (Yellow) Urine Appearance Clear (Clear) Urine pH 6.5 (5.0-8.0) Ur Specific Gibbon 1.010 (1.005-1.030) Urine Protein Negative (Negative) Urine Glucose (UA) Negative (Negative) Urine Ketones Negative (Negative) Urine Occult Blood Negative (Negative) Urine Nitrite Negative (Negative) Urine Bilirubin 1+ H (Negative) Urine Urobilinogen 1.0 (0.2-1.0) Ur Leukocyte Esterase Negative (Negative) SARS-CoV-2 RNA (LOLIS) (NEGATIVE) 06/02/20 Range/Units 06:19 WBC (3.98-10.04) K/mm3 RBC (3.98-5.22) M/mm3 Hgb (11.2-15.7) gm/dl Hct (34.1-44.9) % MCV (79.4-94.8) fl MCH (25.6-32.2) pg MCHC (32.2-35.5) g/dl RDW Std Deviation (36.4-46.3) fL Plt Count (182-369) K/mm3 MPV (9.4-12.3) fl Neut % (Auto) (34.0-71.1) % Lymph % (Auto) (19.3-51.7) % Clarke % (Auto) (4.7-12.5) % Eos % (Auto) (0.7-5.8) Baso % (Auto) (0.1-1.2) % Neut # (Auto) (1.56-6.13) K/mm3 Lymph # (Auto) (1.18-3.74) K/mm3 Clarke # (Auto) (0.24-0.36) K/mm3 Eos # (Auto) (0.04-0.36) K/mm3 Baso # (Auto) (0.01-0.08) K/mm3 Manual Slide Review PT (9.7-12.0) SECONDS INR Sodium (136-145) mEq/L Potassium (3.5-5.1) mEq/L Chloride (98-107) mEq/L Carbon Dioxide (21-32) mEq/L Anion Gap (5-15) BUN (7-18) mg/dL Creatinine (0.55-1.02) mg/dL Est Cr Clr Drug Dosing Estimated GFR (MDRD) (>60) mL/min BUN/Creatinine Ratio (14-18) Glucose (74-106) mg/dL Lactic Acid (0.4-2.0) mmol/L Calcium (8.5-10.1) mg/dL Total Bilirubin (0.2-1.0) mg/dL AST (15-37) U/L ALT (14-59) U/L Alkaline Phosphatase (46-116) U/L C-Reactive Protein (<1.0) mg/dL Total Protein (6.4-8.2) g/dl Albumin (3.4-5.0) g/dl Globulin gm/dL Albumin/Globulin Ratio (1-2) Lipase (73-393) U/L HCG, Qual (NEGATIVE) Urine Color (Yellow) Urine Appearance (Clear) Urine pH (5.0-8.0) Ur Specific Gibbon (1.005-1.030) Urine Protein (Negative) Urine Glucose (UA) (Negative) Urine Ketones (Negative) Urine Occult Blood (Negative) Urine Nitrite (Negative) Urine Bilirubin (Negative) Urine Urobilinogen (0.2-1.0) Ur Leukocyte Esterase (Negative) SARS-CoV-2 RNA (LOLIS) Negative (NEGATIVE) Meds: Medications Generic Name Dose Route Start Last Admin Trade Name Coretta PRN Reason Stop Dose Admin Sodium Chloride 1,000 mls @ 1,000 mls/hr 06/02/20 04:45 06/02/20 04:51 Normal Saline IV 1,000 mls/hr ASDIRECTED TAMMY Administration Sodium Chloride 100 mls @ 60 drops/min 06/02/20 05:30 06/02/20 05:20 Normal Saline IV 60 drops/min ASDIRECTED TAMMY Administration Lactated Ringer's 1,000 mls @ 500 mls/hr 06/02/20 06:45 06/02/20 06:54 Ringers, Lactated IV 500 mls/hr ASDIRECTED TAMMY Administration Sodium Chloride 10 ml 06/02/20 05:30 06/02/20 05:20 Sodium Chloride 0.9% 10 Ml Syringe FLUSH 10 ml BOLUS TAMMY Administration Discontinued Medications Generic Name Dose Route Start Last Admin Trade Name Coretta PRN Reason Stop Dose Admin Hydromorphone HCl 1 mg 06/02/20 04:35 06/02/20 04:51 Hydromorphone 1 Mg/Ml Syringe IVPUSH 06/02/20 04:36 1 mg ONETIME ONE Administration Iopamidol 100 ml 06/02/20 05:19 06/02/20 05:21 Iopamidol 612 Mg/Ml 100 Ml Bottle IVPUSH 06/02/20 05:20 100 ml ONETIME ONE Administration Ondansetron HCl 4 mg 06/02/20 04:35 06/02/20 04:51 Ondansetron 4 Mg/2 Ml Sdv IVPUSH 06/02/20 04:36 4 mg ONETIME ONE Administration Pantoprazole Sodium 40 mg 06/02/20 04:42 06/02/20 06:00 Pantoprazole 40 Mg Vial IVPUSH 06/02/20 04:43 40 mg ONETIME ONE Administration - Radiology Interpretation Free Text/Narrative:: Scan of the abdomen and pelvis shows moderate wall thickening of multiple distal small bowel loops including the terminal ileum with mild edema of the mesentery loops but no obstruction. This coincides with a nonspecific distal enteritis. - Re-Assessments/Exams Free Text/Narrative Re-Assessment/Exam: 06/02/20 07:06 Speak with the patient regarding the CT scan results she is feeling much better but she still is not able to keep fluids down. I am going to admit her to the hospital for further evaluation and treatment with IV hydration and bowel rest. 06/02/20 07:19 Spoke to the patient regarding being admitted to the hospital. We will hydrate her provide medicine for nausea and vomiting. I did speak to Dr. Brooks and he will place her in observation. Departure - Departure Time of Disposition: 07:17 Disposition: Refer to Observation Condition: Fair Clinical Impression: Dehydration, Febrile illness, Sudden onset of severe abdominal pain Regional enteritis of small bowel Qualifiers: Digestive disease complication type: without complication Qualified Code(s): K50.00 - Crohn's disease of small intestine without complications Nausea and vomiting Qualifiers: Vomiting type: unspecified Vomiting Intractability: non-intractable Qualified Code(s): R11.2 - Nausea with vomiting, unspecified Diarrhea Qualifiers: Diarrhea type: unspecified type Qualified Code(s): R19.7 - Diarrhea, unspecified - Discharge Information Sepsis Event Note (ED) - Evaluation Sepsis Screening Result: No Definite Risk - Focused Exam Vital Signs: Vital Signs Temp Pulse Resp BP Pulse Ox 06/02/20 05:20 78 97 06/02/20 04:17 97.1 F 100 20 147/89 H 97 ED Communication - ED Communication Date/Time Date: 06/02/20 Time Called: 07:20 - Discussed Case With (1) Discussed Case With (1): Admitting Provider Person/s Notified (1): Chico Chaney III (He will admit to observation for further evaluation and treatment) - My Orders Last 24 Hours: My Active Orders 06/02/20 04:35 Abdomen Pelvis w Cont [CT] Stat 06/02/20 04:45 Sodium Chloride 0.9% [Normal Saline] 1,000 ml IV ASDIRECTED 06/02/20 05:10 Blood Culture x2 Reflex Set [OM.PC] Stat 06/02/20 05:30 Sodium Chloride 0.9% [Normal Saline] 100 ml IV ASDIRECTED Sodium Chloride 0.9% [Saline Flush] 10 ml FLUSH BOLUS 06/02/20 05:40 CULTURE BLOOD [BC] Stat 06/02/20 06:01 UA W/MICROSCOPIC [URIN] Stat 06/02/20 06:10 CULTURE BLOOD [BC] Stat 06/02/20 06:45 Lactated Ringers [Ringers, Lactated] 1,000 ml IV ASDIRECTED 06/02/20 07:15 LACTIC ACID [CHEM] Stat - Assessment/Plan Last 24 Hours: My Active Orders 06/02/20 04:35 Abdomen Pelvis w Cont [CT] Stat 06/02/20 04:45 Sodium Chloride 0.9% [Normal Saline] 1,000 ml IV ASDIRECTED 06/02/20 05:10 Blood Culture x2 Reflex Set [OM.PC] Stat 06/02/20 05:30 Sodium Chloride 0.9% [Normal Saline] 100 ml IV ASDIRECTED Sodium Chloride 0.9% [Saline Flush] 10 ml FLUSH BOLUS 06/02/20 05:40 CULTURE BLOOD [BC] Stat 06/02/20 06:01 UA W/MICROSCOPIC [URIN] Stat 06/02/20 06:10 CULTURE BLOOD [BC] Stat 06/02/20 06:45 Lactated Ringers [Ringers, Lactated] 1,000 ml IV ASDIRECTED 06/02/20 07:15 LACTIC ACID [CHEM] Stat
[2020-06-02] MEDS ORDERED: Sodium Chloride 0.9% 1,000 ML IV SCH (04:45)
[2020-06-02] MEDS ORDERED: Iopamidol 612 MG/ML 100 ML Bottle IVPUSH ONE (05:19)
[2020-06-02] MEDS ORDERED: Sodium Chloride 0.9% 10 ML Syringe FLUSH SCH (05:30)
[2020-06-02] MEDS ORDERED: Sodium Chloride 0.9% 100 ML IV SCH (05:30)
[2020-06-02] MEDS ORDERED: Lactated Ringers 1,000 ML IV SCH (06:45)
[2020-06-02] MEDS ORDERED: Acetaminophen 325 MG Tab PO PRN (09:30)
[2020-06-02] MEDS ORDERED: Lactated Ringers 500 ML IV ONE (09:35)
--- NOTE | 2020-06-02 09:48 | CT ---
CT abdomen and pelvis Technique: Multiple axial sections were obtained from above the dome of the diaphragm inferiorly through the pubic symphysis. Intravenous contrast was utilized. No oral contrast was given. Delayed images were also obtained through the abdomen and pelvis. Comparison: Prior CT abdomen and pelvis exam of 02/13/19. Findings: Visualized lung bases show nothing acute. Liver is enlarged and shows diffuse fatty infiltration. Spleen is within normal limits. Adrenal glands show no nodule. Kidneys show symmetric contrast enhancement with no hydronephrosis or mass being seen. Pancreas shows no discrete abnormality. Surgical clips are seen from prior cholecystectomy. Abdominal aorta shows no aneurysm. No retroperitoneal adenopathy is seen. Small amount of free fluid is noted within the pelvis. Cystic left ovary is seen. Largest cyst measures approximately 3.5 cm. There is bowel wall thickening within the distal small bowel as well as including the terminal ileum. Very minimal surrounding inflammatory change is seen. Appendix is seen which is normal in size. Delayed images show contrast within the ureters with no evidence of ureteral obstruction. Contrast is noted within the bladder. Minimal diverticulosis is seen within the sigmoid colon. Bone window settings were reviewed which show degenerative change most prominent at L4-5. Impression: 1. Bowel wall thickening within the distal small bowel including terminal ileum. This finding is suspicious for enteritis and possibly Crohn's disease. 2. Cystic change within the left adnexa with largest cyst measuring approximately 3.5 cm. 3. Slight fluid within the pelvis which is most likely physiologic. 4. Enlarged fatty containing liver. Diagnostic code #3 I agree with preliminary report issued by [facility] report finalized on 06/02/20, 6:42 AM FINANCIAL SERVICES COUNSELOR
[2020-06-02] MEDS: Ondansetron 4 MG/2 ML SDV IV PRN ×2 (09:53→15:47)
[2020-06-02] MEDS: Nicotine 21 MG/24 Hr Patch TRDERM SCH (10:17)
[2020-06-02] MEDS: HYDROmorphone 0.5 MG/0.5 ML Syringe IVPUSH PRN ×3 (10:17→20:41)
--- NOTE | 2020-06-02 11:17 | PCM.HP.2 ---
H&P History of Present Illness - General Date of Service: 06/02/20 Admit Problem/Dx: Admission Diagnosis/Problem Admission Diagnosis/Problem Enteritis - History of Present Illness Initial Comments - Free Text/Narative: 34-year-old female presented to the emergency department early this morning after 3 days of nausea, vomiting, and diarrhea. Her kids had a viral gastroenteritis last week and she thought she developed the same virus. Unfortunately, over the last day she has been unable to keep any fluids down and then last night around 1900 hrs. had a sudden onset of severe pain in the epigastrium and mid abdomen. Patient states it was sharp and radiated inferiorly. She denies any hematemesis, hematochezia, or melena. She has had a fever as high as 103 at home. In the emergency department she was given IV fluids, antiemetics, and it was felt that secondary to her CT scan showing bowel wall thickening within the distal small bowel including terminal mall ileum suspicious for enteritis that she would benefit from hospitalization for rehydration and antiemetics as needed. Patient did have a significantly elevated lactic acid of 4.2 on admission and repeat was 2.2 and 2.3. Patient continues to complain of crampy abdominal pain that worsened after the initial Dilaudid from the emergency department wore off. Abdomen Pain Score (Numeric/FACES): 10 - Related Data Allergies/Adverse Reactions: Allergies Allergy/AdvReac Type Severity Reaction Status Date / Time latex Allergy Rash Verified 06/02/20 04:20 Home Medications: Home Meds . 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 Neurological History: Reports: Migraines Psychiatric History: Reports: Anxiety, Depression Other Psychiatric History: refuses medication, uses other techniques like color cordination, steps, and counting. Endocrine/Metabolic History: Reports: Obesity/BMI 30+ Hematologic History: Reports: None Immunologic History: Reports: None Oncologic (Cancer) History: Reports: None Dermatologic History: Reports: Psoriasis - Past Surgical History Head Surgeries/Procedures: Reports: None HEENT Surgical History: Reports: Oral Surgery Other HEENT Surgeries/Procedures: wisdom teeth removed Cardiovascular Surgical History: Reports: None Respiratory Surgical History: Reports: None GI Surgical History: Reports: Cholecystectomy Female Surgical History: Reports: D&C, Tubal Ligation Endocrine Surgical History: Reports: None Neurological Surgical History: Reports: None Musculoskeletal Surgical History: Reports: None Oncologic Surgical History: Reports: None Dermatological Surgical History: Reports: None Social & Family History - Family History Cardiac: Reports: SC Other Cardiac Family History: grandfather GI: Reports: Irritable Bowel Syndrome Other GI Family History: grandmother : Reports: UTI, Recurrent Other Family History: grandmother and self Musculoskeletal: Reports: Arthritis Other Musculoskeletal Family History: mother and grandmother, father, and grandfather Psychiatric: Reports: ADHD, Bipolar Other Psychiatric Family History: Son ADHD. Father bipolar Oncologic: Reports: Colon, Other (See Below) Other Oncologic Family History: Grandfather colon cancer. Grandmother stomach cancer - Tobacco Use Tobacco Use Status *Q: Current Every Day Tobacco User Years of Tobacco use: 15 Packs/Tins Daily: 1 - Caffeine Use Caffeine Use: Reports: None - Recreational Drug Use Recreational Drug Use: No - Living Situation & Occupation Living situation: Reports: , with Spouse, with Family (4 kids) Occupation: Unemployed H&P Review of Systems - Review of Systems: Review Of Systems: Comprehensive ROS is negative, except as noted in HPI. Exam - Exam Exam: See Below - Vital Signs Vital Signs: Last Vital Signs Temp 97.1 F 06/02/20 04:17 Pulse 78 06/02/20 05:20 Resp 20 06/02/20 04:17 BP 147/89 H 06/02/20 04:17 Pulse Ox 97 06/02/20 05:20 Weight: 190 lb 4.8 oz - Exam Quality Assessment: No: Supplemental Oxygen General: Alert, Oriented, 4 HEENT: Conjunctiva Clear, EOMI, Hearing Intact, Mucosa Moist & Self[place], Normal Nasal Septum Neck: Supple, Trachea Midline, 2 Lungs: Clear to Auscultation, Normal Respiratory Effort Cardiovascular: Regular Rate, Regular Rhythm GI/Abdominal Exam: Soft, Non-Tender, No Organomegaly, No Distention, No Abnormal Bruit, No Mass, Pelvis Stable, Abnormal Bowel Sounds Extremities: Normal Inspection, Normal Range of Motion, Non-Tender, No Pedal Edema, Normal Capillary Refill Skin: Warm, Dry, Intact Neuro Extensive - Mental Status: Alert, Oriented x3, Normal Mood/Affect, Normal Cognition DTR: 2+: Patella (L), Patella (R), Achilles (L), Achilles (R) Psychiatric: Alert, Normal Affect, Normal Mood - Patient Data Lab Results Last 24 hrs: Laboratory Results - last 24 hr 06/02/20 06/02/20 06/02/20 Range/Units 04:15 04:15 04:15 WBC 11.81 H (3.98-10.04) K/mm3 RBC 4.39 (3.98-5.22) M/mm3 Hgb 16.2 H (11.2-15.7) gm/dl Hct 46.8 H (34.1-44.9) % MCV 106.6 H D (79.4-94.8) fl MCH 36.9 H (25.6-32.2) pg MCHC 34.6 (32.2-35.5) g/dl RDW Std Deviation 50.3 H (36.4-46.3) fL Plt Count 321 (182-369) K/mm3 MPV 10.5 (9.4-12.3) fl Neut % (Auto) 79.7 H (34.0-71.1) % Lymph % (Auto) 13.7 L (19.3-51.7) % [place] % (Auto) 6.0 (4.7-12.5) % Eos % (Auto) 0.3 L (0.7-5.8) Baso % (Auto) 0.1 (0.1-1.2) % Neut # (Auto) 9.41 H (1.56-6.13) K/mm3 Lymph # (Auto) 1.62 (1.18-3.74) K/mm3 [place] # (Auto) 0.71 H (0.24-0.36) K/mm3 Eos # (Auto) 0.04 (0.04-0.36) K/mm3 Baso # (Auto) 0.01 (0.01-0.08) K/mm3 Manual Slide Review Abnormal smear PT (9.7-12.0) SECONDS INR Sodium 141 (136-145) mEq/L Potassium 3.7 (3.5-5.1) mEq/L Chloride 100 (98-107) mEq/L Carbon Dioxide 25 (21-32) mEq/L Anion Gap 19.7 H (5-15) BUN 8 (7-18) mg/dL Creatinine 0.8 (0.55-1.02) mg/dL Est Cr Clr Drug Dosing TNP Estimated GFR (MDRD) > 60 (>60) mL/min BUN/Creatinine Ratio 10.0 L (14-18) Glucose 111 H (74-106) mg/dL Lactic Acid 4.2 H* (0.4-2.0) mmol/L Calcium 9.5 (8.5-10.1) mg/dL Total Bilirubin 1.7 H (0.2-1.0) mg/dL AST 113 H (15-37) U/L ALT 42 (14-59) U/L Alkaline Phosphatase 136 H (46-116) U/L C-Reactive Protein 1.4 H* (<1.0) mg/dL Total Protein 8.4 H (6.4-8.2) g/dl Albumin 4.3 (3.4-5.0) g/dl Globulin 4.1 gm/dL Albumin/Globulin Ratio 1.1 (1-2) Lipase 78 (73-393) U/L HCG, Qual (NEGATIVE) Urine Color (Yellow) Urine Appearance (Clear) Urine pH (5.0-8.0) Ur Specific [place] (1.005-1.030) Urine Protein (Negative) Urine Glucose (UA) (Negative) Urine Ketones (Negative) Urine Occult Blood (Negative) Urine Nitrite (Negative) Urine Bilirubin (Negative) Urine Urobilinogen (0.2-1.0) Ur Leukocyte Esterase (Negative) Urine RBC (0-5) /hpf Urine WBC (0-5) /hpf Ur Squamous Epith Cells (0-5) /hpf Urine Bacteria (FEW) /hpf Urine Mucus (FEW) /hpf SARS-CoV-2 RNA (LOLIS) (NEGATIVE) 06/02/20 06/02/20 06/02/20 Range/Units 04:15 04:15 06:01 WBC (3.98-10.04) K/mm3 RBC (3.98-5.22) M/mm3 Hgb (11.2-15.7) gm/dl Hct (34.1-44.9) % MCV (79.4-94.8) fl MCH (25.6-32.2) pg MCHC (32.2-35.5) g/dl RDW Std Deviation (36.4-46.3) fL Plt Count (182-369) K/mm3 MPV (9.4-12.3) fl Neut % (Auto) (34.0-71.1) % Lymph % (Auto) (19.3-51.7) % [place] % (Auto) (4.7-12.5) % Eos % (Auto) (0.7-5.8) Baso % (Auto) (0.1-1.2) % Neut # (Auto) (1.56-6.13) K/mm3 Lymph # (Auto) (1.18-3.74) K/mm3 [place] # (Auto) (0.24-0.36) K/mm3 Eos # (Auto) (0.04-0.36) K/mm3 Baso # (Auto) (0.01-0.08) K/mm3 Manual Slide Review PT 11.4 (9.7-12.0) SECONDS INR 1.07 Sodium (136-145) mEq/L Potassium (3.5-5.1) mEq/L Chloride (98-107) mEq/L Carbon Dioxide (21-32) mEq/L Anion Gap (5-15) BUN (7-18) mg/dL Creatinine (0.55-1.02) mg/dL Est Cr Clr Drug Dosing Estimated GFR (MDRD) (>60) mL/min BUN/Creatinine Ratio (14-18) Glucose (74-106) mg/dL Lactic Acid (0.4-2.0) mmol/L Calcium (8.5-10.1) mg/dL Total Bilirubin (0.2-1.0) mg/dL AST (15-37) U/L ALT (14-59) U/L Alkaline Phosphatase (46-116) U/L C-Reactive Protein (<1.0) mg/dL Total Protein (6.4-8.2) g/dl Albumin (3.4-5.0) g/dl Globulin gm/dL Albumin/Globulin Ratio (1-2) Lipase (73-393) U/L HCG, Qual Negative (NEGATIVE) Urine Color Yellow (Yellow) Urine Appearance Clear (Clear) Urine pH 6.5 (5.0-8.0) Ur Specific [place] 1.010 (1.005-1.030) Urine Protein Negative (Negative) Urine Glucose (UA) Negative (Negative) Urine Ketones Negative (Negative) Urine Occult Blood Negative (Negative) Urine Nitrite Negative (Negative) Urine Bilirubin 1+ H (Negative) Urine Urobilinogen 1.0 (0.2-1.0) Ur Leukocyte Esterase Negative (Negative) Urine RBC 0-5 (0-5) /hpf Urine WBC 0-5 (0-5) /hpf Ur Squamous Epith Cells 0-5 (0-5) /hpf Urine Bacteria Few (FEW) /hpf Urine Mucus Few (FEW) /hpf SARS-CoV-2 RNA (LOLIS) (NEGATIVE) 06/02/20 06/02/20 06/02/20 Range/Units 06:19 08:38 10:38 WBC (3.98-10.04) K/mm3 RBC (3.98-5.22) M/mm3 Hgb (11.2-15.7) gm/dl Hct (34.1-44.9) % MCV (79.4-94.8) fl MCH (25.6-32.2) pg MCHC (32.2-35.5) g/dl RDW Std Deviation (36.4-46.3) fL Plt Count (182-369) K/mm3 MPV (9.4-12.3) fl Neut % (Auto) (34.0-71.1) % Lymph % (Auto) (19.3-51.7) % [place] % (Auto) (4.7-12.5) % Eos % (Auto) (0.7-5.8) Baso % (Auto) (0.1-1.2) % Neut # (Auto) (1.56-6.13) K/mm3 Lymph # (Auto) (1.18-3.74) K/mm3 [place] # (Auto) (0.24-0.36) K/mm3 Eos # (Auto) (0.04-0.36) K/mm3 Baso # (Auto) (0.01-0.08) K/mm3 Manual Slide Review PT (9.7-12.0) SECONDS INR Sodium (136-145) mEq/L Potassium (3.5-5.1) mEq/L Chloride (98-107) mEq/L Carbon Dioxide (21-32) mEq/L Anion Gap (5-15) BUN (7-18) mg/dL Creatinine (0.55-1.02) mg/dL Est Cr Clr Drug Dosing Estimated GFR (MDRD) (>60) mL/min BUN/Creatinine Ratio (14-18) Glucose (74-106) mg/dL Lactic Acid 2.2 H* 2.3 H* (0.4-2.0) mmol/L Calcium (8.5-10.1) mg/dL Total Bilirubin (0.2-1.0) mg/dL AST (15-37) U/L ALT (14-59) U/L Alkaline Phosphatase (46-116) U/L C-Reactive Protein (<1.0) mg/dL Total Protein (6.4-8.2) g/dl Albumin (3.4-5.0) g/dl Globulin gm/dL Albumin/Globulin Ratio (1-2) Lipase (73-393) U/L HCG, Qual (NEGATIVE) Urine Color (Yellow) Urine Appearance (Clear) Urine pH (5.0-8.0) Ur Specific [place] (1.005-1.030) Urine Protein (Negative) Urine Glucose (UA) (Negative) Urine Ketones (Negative) Urine Occult Blood (Negative) Urine Nitrite (Negative) Urine Bilirubin (Negative) Urine Urobilinogen (0.2-1.0) Ur Leukocyte Esterase (Negative) Urine RBC (0-5) /hpf Urine WBC (0-5) /hpf Ur Squamous Epith Cells (0-5) /hpf Urine Bacteria (FEW) /hpf Urine Mucus (FEW) /hpf SARS-CoV-2 RNA (LOLIS) Negative (NEGATIVE) Result Diagrams: 06/02/20 04:15 06/02/20 04:15 Sepsis Event Note - Evaluation Sepsis Screening Result: No Definite Risk - Focused Exam Vital Signs: Vital Signs Temp Pulse Resp BP Pulse Ox 06/02/20 05:20 78 97 06/02/20 04:17 97.1 F 100 20 147/89 H 97 - Problem List (1) Gastroenteritis and colitis, viral SNOMED Code(s): 314442537 ICD Code: A08.4 - VIRAL INTESTINAL INFECTION, UNSPECIFIED Status: Acute Current Visit: Yes Problem List Initiated/Reviewed/Updated: Yes Orders Last 24hrs: Active Orders 24 hr Category Date Time Status Admission Status [Patient Status] [ADT] Routine ADT 06/02/20 07:23 Active Antiembolic Devices [RC] PER UNIT ROUTINE Care 06/02/20 09:32 Active Oxygen Therapy [RC] PRN Care 06/02/20 09:30 Active Up ad Cecilia [RC] ASDIRECTED Care 06/02/20 09:30 Active VTE/DVT Education [RC] PER UNIT ROUTINE Care 06/02/20 09:30 Active Vital Signs [RC] 10,16,22,06 Care 06/02/20 09:30 Active Clear Liquid Diet [DIET] Diet 06/02/20 Lunch Active CBC WITH AUTO DIFF [HEME] AM Lab 06/03/20 05:11 Ordered COMPREHENSIVE METABOLIC PN,CMP [CHEM] AM Lab 06/03/20 05:11 Ordered CULTURE BLOOD [BC] Stat Lab 06/02/20 05:40 Received CULTURE BLOOD [BC] Stat Lab 06/02/20 06:10 Received MAGNESIUM [CHEM] AM Lab 06/03/20 05:11 Ordered Acetaminophen [TylenoL] Med 06/02/20 09:30 Active 650 mg PO Q4H PRN Dicyclomine [Bentyl] Med 06/02/20 11:15 Ordered 10 mg PO QIDACANDBED PRN Famotidine [Pepcid] Med 06/02/20 21:00 Active 20 mg IVPUSH BID HYDROmorphone [Dilaudid] Med 06/02/20 10:04 Active 0.5 mg IVPUSH Q2H PRN Nicotine [Habitrol] Med 06/02/20 10:15 Active 21 mg TRDERM DAILY Ondansetron [Zofran] Med 06/02/20 09:30 Active 4 mg IV Q4H PRN Promethazine [Phenergan] Med 06/02/20 09:30 Active 25 mg PO Q6H PRN Remove Patch Med 06/03/20 09:00 Active 1 ea TRDERM DAILY Antiembolic Hose [OM.PC] Per Unit Routine Oth 06/02/20 09:30 Ordered Blood Culture x2 Reflex Set [OM.PC] Stat Oth 06/02/20 05:10 Ordered Resuscitation Status Routine Resus Stat 06/02/20 09:30 Ordered Medication Orders Acetaminophen (Acetaminophen 325 Mg Tab) 650 mg PO Q4H PRN PRN Reason: Pain (Mild 1-3)/fever Dicyclomine HCl (Dicyclomine 10 Mg Cap) 10 mg PO QIDACANDBED PRN PRN Reason: Abdominal Pain Famotidine (Famotidine 20 Mg/2 Ml Sdv) 20 mg IVPUSH BID TAMMY Hydromorphone HCl (Hydromorphone 0.5 Mg/0.5 Ml Syringe) 0.5 mg IVPUSH Q2H PRN PRN Reason: Abdominal Pain Last Admin: 06/02/20 10:17 Dose: 0.5 mg Documented by: EMMA Miscellaneous Information (Remove Patch-Nicotine) 1 ea TRDERM DAILY TAMMY Nicotine (Nicotine 21 Mg/24 Hr Patch) 21 mg TRDERM DAILY TAMMY Last Admin: 06/02/20 10:17 Dose: 21 mg Documented by: EMMA Ondansetron HCl (Ondansetron 4 Mg/2 Ml Sdv) 4 mg IV Q4H PRN PRN Reason: Nausea/Vomiting Last Admin: 06/02/20 09:53 Dose: 4 mg Documented by: EMMA Promethazine HCl (Promethazine 25 Mg Tab) 25 mg PO Q6H PRN PRN Reason: Nausea/Vomiting Assessment/Plan Comment:: Assessment 34-year-old female with 3-day history of nausea and vomiting. Close contact exposure of similar illness within her family. CT of the abdomen demonstrated findings suspicious for enteritis and possibly Crohn's disease. Also a cystic change within the left adnexa with the largest cyst measuring approximately 3.5 cm. Enlarged fatty containing liver. Viral gastroenteritis * Patient symptoms, CT, and exam are consistent with viral gastroenteritis. * Crohn's is less likely secondary to history of close contact with similar illness. * Lactic acidosis is likely secondary to hypovolemia. * Patient's abdominal pain is crampy in nature again consistent with infectious gastroenteritis. * If patient continues to have loose stools will check stool studies. Plan * Refer for observation * IV fluids for rehydration * Bentyl 10 mg 4 times daily as needed abdominal cramping * Zofran 4 mg every 4 hours as needed nausea * Dilaudid 0.5 mg every 2 hours as needed abdominal pain * CBC, CMP, mag in the morning * VTE prophylaxis with compression stockings * CODE STATUS full code * Length of stay 1 to 2 days. - Mortality Measure Prognosis:: Good
[2020-06-02] MEDS: Dicyclomine 10 MG Cap PO PRN ×2 (11:38→17:14)
[2020-06-02] MEDS: D5 1/2 NS w/ 20 mEq/L KCl 1,000 ML IV SCH ×2 (11:38→17:59)
[2020-06-02] MEDS: Promethazine 25 MG Tab PO PRN (17:47)
[2020-06-02] MEDS: Famotidine 20 MG/2 ML SDV IVPUSH SCH (20:41)
[2020-06-03] MEDS: D5 1/2 NS w/ 20 mEq/L KCl 1,000 ML IV SCH (03:40)
[2020-06-03] MEDS: HYDROmorphone 0.5 MG/0.5 ML Syringe IVPUSH PRN ×4 (04:45→12:11)
[2020-06-03] MEDS: Promethazine 25 MG Tab PO PRN ×2 (04:45→17:35)
[2020-06-03] MEDS: Ondansetron 4 MG/2 ML SDV IV PRN (06:50)
[2020-06-03] MEDS: Nicotine 21 MG/24 Hr Patch TRDERM SCH (08:14)
[2020-06-03] MEDS: Famotidine 20 MG/2 ML SDV IVPUSH SCH ×2 (08:15→20:42)
[2020-06-03] MEDS: Dicyclomine 10 MG Cap PO PRN ×2 (08:28→18:50)
[2020-06-03] MEDS ORDERED: Magnesium Sulfate/Water 4 GM in Premix Bag 1 BAG IV ONE (09:00)
[2020-06-03] MEDS: Acetaminophen/HYDROcodone 325-5 MG Tab PO PRN ×2 (16:02→20:42)
--- NOTE | 2020-06-03 17:00 | PCM.PN ---
- General Info Date of Service: 06/03/20 Admission Dx/Problem (Free Text): Admission Diagnosis/Problem Admission Diagnosis/Problem Enteritis Subjective Update: Patient has improved today. She was able to keep down lunch but it did cause significant pain. She continues to require pain medication but has switched to orals this afternoon. Functional Status: Denies: Pain Controlled - Review of Systems General: Reports: No Symptoms HEENT: Reports: No Symptoms Pulmonary: Reports: No Symptoms Cardiovascular: Reports: No Symptoms Gastrointestinal: Reports: Abdominal Pain Musculoskeletal: Reports: No Symptoms Neurological: Reports: No Symptoms Psychiatric: Reports: No Symptoms - Patient Data Vitals - Most Recent: Last Vital Signs Temp 98.4 F 06/03/20 15:43 Pulse 71 06/03/20 15:44 Resp 16 06/03/20 15:43 BP 108/84 06/03/20 15:44 Pulse Ox 98 06/03/20 15:44 Weight - Most Recent: 191 lb 11.2 oz I&O - Last 24 Hours: Intake & Output 06/03/20 06/03/20 06/03/20 06:59 14:59 22:59 Intake Total 1800 1295 Output Total 1000 800 Balance 800 495 Lab Results Last 24 Hours: Laboratory Results - last 24 hr 06/03/20 06/03/20 Range/Units 04:37 04:37 WBC 4.91 (3.98-10.04) K/mm3 RBC 3.57 L (3.98-5.22) M/mm3 Hgb 13.1 D (11.2-15.7) gm/dl Hct 39.1 (34.1-44.9) % MCV 109.5 H (79.4-94.8) fl MCH 36.7 H (25.6-32.2) pg MCHC 33.5 (32.2-35.5) g/dl RDW Std Deviation 50.6 H (36.4-46.3) fL Plt Count 232 D (182-369) K/mm3 MPV 11.0 (9.4-12.3) fl Neut % (Auto) 51.0 (34.0-71.1) % Lymph % (Auto) 39.9 (19.3-51.7) % [place] % (Auto) 6.7 (4.7-12.5) % Eos % (Auto) 2.0 (0.7-5.8) Baso % (Auto) 0.2 (0.1-1.2) % Neut # (Auto) 2.50 (1.56-6.13) K/mm3 Lymph # (Auto) 1.96 (1.18-3.74) K/mm3 [place] # (Auto) 0.33 (0.24-0.36) K/mm3 Eos # (Auto) 0.10 (0.04-0.36) K/mm3 Baso # (Auto) 0.01 (0.01-0.08) K/mm3 Manual Slide Review Abnormal smear Sodium 143 (136-145) mEq/L Potassium 3.7 (3.5-5.1) mEq/L Chloride 106 (98-107) mEq/L Carbon Dioxide 27 (21-32) mEq/L Anion Gap 13.7 (5-15) BUN 4 L (7-18) mg/dL Creatinine 0.7 (0.55-1.02) mg/dL Est Cr Clr Drug Dosing 105.01 mL/min Estimated GFR (MDRD) > 60 (>60) mL/min BUN/Creatinine Ratio 5.7 L (14-18) Glucose 86 (74-106) mg/dL Calcium 8.3 L (8.5-10.1) mg/dL Magnesium 1.5 L (1.8-2.4) mg/dl Total Bilirubin 1.5 H (0.2-1.0) mg/dL AST 75 H (15-37) U/L ALT 27 (14-59) U/L Alkaline Phosphatase 94 (46-116) U/L Total Protein 6.2 L (6.4-8.2) g/dl Albumin 2.9 L (3.4-5.0) g/dl Globulin 3.3 gm/dL Albumin/Globulin Ratio 0.9 L (1-2) Yaakov Results Last 24 Hours: Microbiology 06/02/20 06:10 Aerobic Blood Culture - Preliminary Blood - Venous - Lab Draw NO GROWTH AFTER 1 DAY Anaerobic Blood Culture - Preliminary NO GROWTH AFTER 1 DAY 06/02/20 05:40 Aerobic Blood Culture - Preliminary Blood - Venous NO GROWTH AFTER 1 DAY Anaerobic Blood Culture - Preliminary NO GROWTH AFTER 1 DAY Med Orders - Current: Current Medications Acetaminophen (Acetaminophen 325 Mg Tab) 650 mg PO Q4H PRN PRN Reason: Pain (Mild 1-3)/fever Hydrocodone Bitart/Acetaminophen (Acetaminophen/Hydrocodone 325-5 Mg Tab) 1 tab PO Q3H PRN PRN Reason: Pain (moderate 4-6) Last Admin: 06/03/20 16:02 Dose: 1 tab Documented by: Dicyclomine HCl (Dicyclomine 10 Mg Cap) 10 mg PO QIDACANDBED PRN PRN Reason: Abdominal Pain Last Admin: 06/03/20 08:28 Dose: 10 mg Documented by: Famotidine (Famotidine 20 Mg/2 Ml Sdv) 20 mg IVPUSH BID COUNTS INCLUDE 234 BEDS AT THE [facility] Last Admin: 06/03/20 08:15 Dose: 20 mg Documented by: Hydromorphone HCl (Hydromorphone 0.5 Mg/0.5 Ml Syringe) 0.5 mg IVPUSH Q2H PRN PRN Reason: Abdominal Pain Last Admin: 06/03/20 12:11 Dose: 0.5 mg Documented by: Miscellaneous Information (Remove Patch-Nicotine) 1 ea TRDERM DAILY COUNTS INCLUDE 234 BEDS AT THE [facility] Last Admin: 06/03/20 08:14 Dose: 1 ea Documented by: Nicotine (Nicotine 21 Mg/24 Hr Patch) 21 mg TRDERM DAILY COUNTS INCLUDE 234 BEDS AT THE [facility] Last Admin: 06/03/20 08:14 Dose: 21 mg Documented by: Ondansetron HCl (Ondansetron 4 Mg/2 Ml Sdv) 4 mg IV Q4H PRN PRN Reason: Nausea/Vomiting Last Admin: 06/03/20 06:50 Dose: 4 mg Documented by: Promethazine HCl (Promethazine 25 Mg Tab) 25 mg PO Q6H PRN PRN Reason: Nausea/Vomiting Last Admin: 06/03/20 04:45 Dose: 25 mg Documented by: Discontinued Medications Hydromorphone HCl (Hydromorphone 1 Mg/Ml Syringe) 1 mg IVPUSH ONETIME ONE Stop: 06/02/20 04:36 Last Admin: 06/02/20 04:51 Dose: 1 mg Documented by: Sodium Chloride (Normal Saline) 1,000 mls @ 1,000 mls/hr IV ASDIRECTED COUNTS INCLUDE 234 BEDS AT THE [facility] Last Admin: 06/02/20 04:51 Dose: 1,000 mls/hr Documented by: Sodium Chloride (Normal Saline) 100 mls @ 60 drops/min IV ASDIRECTED COUNTS INCLUDE 234 BEDS AT THE [facility] Last Admin: 06/02/20 05:20 Dose: 60 drops/min Documented by: Lactated Ringer's (Ringers, Lactated) 1,000 mls @ 500 mls/hr IV ASDIRECTED COUNTS INCLUDE 234 BEDS AT THE [facility] Last Admin: 06/02/20 06:54 Dose: 500 mls/hr Documented by: Lactated Ringer's (Ringers, Lactated) 500 mls @ 1,000 mls/hr IV .BOLUS ONE Stop: 06/02/20 10:04 Last Admin: 06/02/20 09:57 Dose: 1,000 mls/hr Documented by: Potassium Chloride/Dextrose/Sod Cl (D5 1/2 Ns W/ 20 Meq/L Kcl) 1,000 mls @ 150 mls/hr IV ASDIRECTED COUNTS INCLUDE 234 BEDS AT THE [facility] Last Admin: 06/03/20 03:40 Dose: 150 mls/hr Documented by: Magnesium Sulfate 4 gm/ Premix 50 mls @ 12.5 mls/hr IV ONETIME ONE Stop: 06/03/20 12:59 Last Admin: 06/03/20 09:15 Dose: 12.5 mls/hr Documented by: Iopamidol (Iopamidol 612 Mg/Ml 100 Ml Bottle) 100 ml IVPUSH ONETIME ONE Stop: 06/02/20 05:20 Last Admin: 06/02/20 05:21 Dose: 100 ml Documented by: Ondansetron HCl (Ondansetron 4 Mg/2 Ml Sdv) 4 mg IVPUSH ONETIME ONE Stop: 06/02/20 04:36 Last Admin: 06/02/20 04:51 Dose: 4 mg Documented by: Pantoprazole Sodium (Pantoprazole 40 Mg Vial) 40 mg IVPUSH ONETIME ONE Stop: 06/02/20 04:43 Last Admin: 06/02/20 06:00 Dose: 40 mg Documented by: Sodium Chloride (Sodium Chloride 0.9% 10 Ml Syringe) 10 ml FLUSH BOLUS COUNTS INCLUDE 234 BEDS AT THE [facility] Last Admin: 06/02/20 05:20 Dose: 10 ml Documented by: - Exam Quality Assessment: No: Supplemental Oxygen General: Alert, Oriented HEENT: Pupils Equal, Mucous Membr. Moist/[place] Neck: Supple Lungs: Clear to Auscultation, Normal Respiratory Effort Cardiovascular: Regular Rate, Regular Rhythm GI/Abdominal Exam: Normal Bowel Sounds, Soft, No Organomegaly, No Distention, No Abnormal Bruit, Tender (Right upper quadrant tenderness without guarding or rebound.) Extremities: Normal Inspection, Normal Range of Motion, Non-Tender, No Pedal Edema, Normal Capillary Refill Skin: Warm, Dry, Intact Psy/Mental Status: Alert, Normal Affect, Normal Mood - Patient Data Lab Results Last 24 hrs: Laboratory Results - last 24 hr 06/03/20 06/03/20 Range/Units 04:37 04:37 WBC 4.91 (3.98-10.04) K/mm3 RBC 3.57 L (3.98-5.22) M/mm3 Hgb 13.1 D (11.2-15.7) gm/dl Hct 39.1 (34.1-44.9) % MCV 109.5 H (79.4-94.8) fl MCH 36.7 H (25.6-32.2) pg MCHC 33.5 (32.2-35.5) g/dl RDW Std Deviation 50.6 H (36.4-46.3) fL Plt Count 232 D (182-369) K/mm3 MPV 11.0 (9.4-12.3) fl Neut % (Auto) 51.0 (34.0-71.1) % Lymph % (Auto) 39.9 (19.3-51.7) % [place] % (Auto) 6.7 (4.7-12.5) % Eos % (Auto) 2.0 (0.7-5.8) Baso % (Auto) 0.2 (0.1-1.2) % Neut # (Auto) 2.50 (1.56-6.13) K/mm3 Lymph # (Auto) 1.96 (1.18-3.74) K/mm3 [place] # (Auto) 0.33 (0.24-0.36) K/mm3 Eos # (Auto) 0.10 (0.04-0.36) K/mm3 Baso # (Auto) 0.01 (0.01-0.08) K/mm3 Manual Slide Review Abnormal smear Sodium 143 (136-145) mEq/L Potassium 3.7 (3.5-5.1) mEq/L Chloride 106 (98-107) mEq/L Carbon Dioxide 27 (21-32) mEq/L Anion Gap 13.7 (5-15) BUN 4 L (7-18) mg/dL Creatinine 0.7 (0.55-1.02) mg/dL Est Cr Clr Drug Dosing 105.01 mL/min Estimated GFR (MDRD) > 60 (>60) mL/min BUN/Creatinine Ratio 5.7 L (14-18) Glucose 86 (74-106) mg/dL Calcium 8.3 L (8.5-10.1) mg/dL Magnesium 1.5 L (1.8-2.4) mg/dl Total Bilirubin 1.5 H (0.2-1.0) mg/dL AST 75 H (15-37) U/L ALT 27 (14-59) U/L Alkaline Phosphatase 94 (46-116) U/L Total Protein 6.2 L (6.4-8.2) g/dl Albumin 2.9 L (3.4-5.0) g/dl Globulin 3.3 gm/dL Albumin/Globulin Ratio 0.9 L (1-2) Result Diagrams: 06/03/20 04:37 06/03/20 04:37 Yaakov Results Last 24 hrs: Microbiology 06/02/20 06:10 Aerobic Blood Culture - Preliminary Blood - Venous - Lab Draw NO GROWTH AFTER 1 DAY Anaerobic Blood Culture - Preliminary NO GROWTH AFTER 1 DAY 06/02/20 05:40 Aerobic Blood Culture - Preliminary Blood - Venous NO GROWTH AFTER 1 DAY Anaerobic Blood Culture - Preliminary NO GROWTH AFTER 1 DAY Sepsis Event Note - Evaluation Sepsis Screening Result: No Definite Risk - Focused Exam Vital Signs: Vital Signs Temp Pulse Resp BP Pulse Ox 06/03/20 15:44 71 108/84 98 06/03/20 15:43 98.4 F 66 16 96/60 97 06/03/20 09:08 97.5 F 65 16 127/79 97 - Problem List & Annotations (1) Gastroenteritis and colitis, viral SNOMED Code(s): 744819674 Code(s): A08.4 - VIRAL INTESTINAL INFECTION, UNSPECIFIED Status: Acute Current Visit: Yes - Problem List Review Problem List Initiated/Reviewed/Updated: Yes - My Orders Last 24 Hours: My Active Orders 06/02/20 17:40 STOOL CULTURE/SHIGA TOXIN [MREF] Routine 06/02/20 21:00 Famotidine [Pepcid] 20 mg IVPUSH BID 06/03/20 09:00 Remove Patch 1 ea TRDERM DAILY 06/03/20 Lunch Regular Diet [DIET] 06/03/20 14:16 Acetaminophen/HYDROcodone [[place] 325-5 MG] 1 tab PO Q3H PRN - Plan Plan:: 06/02/2020 Assessment 34-year-old female with 3-day history of nausea and vomiting. Close contact exposure of similar illness within her family. CT of the abdomen demonstrated findings suspicious for enteritis and possibly Crohn's disease. Also a cystic change within the left adnexa with the largest cyst measuring approximately 3.5 cm. Enlarged fatty containing liver. Viral gastroenteritis * Patient symptoms, CT, and exam are consistent with viral gastroenteritis. * Crohn's is less likely secondary to history of close contact with similar illness. * Lactic acidosis is likely secondary to hypovolemia. * Patient's abdominal pain is crampy in nature again consistent with infectious gastroenteritis. * If patient continues to have loose stools will check stool studies. Plan * Refer for observation * IV fluids for rehydration * Bentyl 10 mg 4 times daily as needed abdominal cramping * Zofran 4 mg every 4 hours as needed nausea * Dilaudid 0.5 mg every 2 hours as needed abdominal pain * CBC, CMP, mag in the morning * VTE prophylaxis with compression stockings * CODE STATUS full code * Length of stay 1 to 2 days. 06/03/2020 Patient has had improvement over the day. She continues to have pain and is having difficulty tolerating oral intake. Added oral pain medication for pain control but likely will discharge home tomorrow.
[2020-06-04] MEDS: Acetaminophen/HYDROcodone 325-5 MG Tab PO PRN ×4 (00:10→11:36)
[2020-06-04] MEDS: Dicyclomine 10 MG Cap PO PRN (06:38)
[2020-06-04] MEDS: Famotidine 20 MG/2 ML SDV IVPUSH SCH (08:24)
[2020-06-04] MEDS: Nicotine 21 MG/24 Hr Patch TRDERM SCH (08:25)
[2020-06-04 08:37] VITALS: BP 115/91; PULSE 63
--- NOTE | 2020-06-04 09:43 | PCM.DCSUM1 ---
Discharge Summary - Hospital Course HPI Initial Comments: 34-year-old female presented to the emergency department early this morning after 3 days of nausea, vomiting, and diarrhea. Her kids had a viral gastroenteritis last week and she thought she developed the same virus. Unfortunately, over the last day she has been unable to keep any fluids down and then last night around 1900 hrs. had a sudden onset of severe pain in the epigastrium and mid abdomen. Patient states it was sharp and radiated inferiorly. She denies any hematemesis, hematochezia, or melena. She has had a fever as high as 103 at home. In the emergency department she was given IV fluids, antiemetics, and it was felt that secondary to her CT scan showing bowel wall thickening within the distal small bowel including terminal mall ileum suspicious for enteritis that she would benefit from hospitalization for rehydration and antiemetics as needed. Patient did have a significantly elevated lactic acid of 4.2 on admission and repeat was 2.2 and 2.3. Patient continues to complain of crampy abdominal pain that worsened after the initial Dilaudid from the emergency department wore off. Assessment 34-year-old female with 3-day history of nausea and vomiting. Close contact exposure of similar illness within her family. CT of the abdomen demonstrated findings suspicious for enteritis and possibly Crohn's disease. Also a cystic change within the left adnexa with the largest cyst measuring approximately 3.5 cm. Enlarged fatty containing liver. Viral gastroenteritis * Patient symptoms, CT, and exam are consistent with viral gastroenteritis. * Crohn's is less likely secondary to history of close contact with similar illness. * Lactic acidosis is likely secondary to hypovolemia. * Patient's abdominal pain is crampy in nature again consistent with infectious gastroenteritis. * If patient continues to have loose stools will check stool studies. Plan * Refer for observation * IV fluids for rehydration * Bentyl 10 mg 4 times daily as needed abdominal cramping * Zofran 4 mg every 4 hours as needed nausea * Dilaudid 0.5 mg every 2 hours as needed abdominal pain * CBC, CMP, mag in the morning * VTE prophylaxis with compression stockings * CODE STATUS full code * Length of stay 1 to 2 days. - Mortality Measure Prognosis:: Good Diagnosis: Stroke: No - Discharge Data Discharge Date: 06/04/20 Discharge Disposition: Home, Self-Care 01 Condition: Good - Referral to Home Health Reason for Homebound Status: Follow-up with your primary care provider within a week. Please stop drinking all alcohol. You do have damage of your liver likely secondary to alcohol at least in part. Primary Care Physician: PCP None - Discharge Diagnosis/Problem(s) (1) Gastroenteritis and colitis, viral SNOMED Code(s): 233446448 ICD Code: A08.4 - VIRAL INTESTINAL INFECTION, UNSPECIFIED Status: Acute Current Visit: Yes (2) Fatty liver due to alcoholism SNOMED Code(s): 52717895 ICD Code: K70.0 - ALCOHOLIC FATTY LIVER Status: Acute Current Visit: Yes - Patient Summary/Data Hospital Course: Patient was admitted and started on IV fluids, Bentyl, hydrocodone on, and bowel rest. Initial bilirubin was elevated at 1.7 which initially was thought to be due to viral illness but after speaking with her this morning it appears patient is a heavy drinker. This would be consistent with her AST over twice as high as her ALT. Fortunately on day of discharge her bilirubin did drop to 1.3 and I counseled her in regards to alcohol cessation. Patient voiced understanding. On day of discharge she is asymptomatic, tolerating oral diet and has had 5 bowel movements. Patient will be discharged home with Bentyl, hydrocodone, and smoking cessation, nicotine, patch. CT of the abdomen showed 1. Bowel wall thickening within the distal small bowel including terminal ileum. This finding is suspicious for enteritis and possibly Crohn's disease. 2. Cystic change within the left adnexa with largest cyst measuring approximately 3.5 cm. 3. Slight fluid within the pelvis which is most likely physiologic. 4. Enlarged fatty containing liver. Patient may need further evaluation for Crohn's disease, although this is likely secondary to infectious enteritis. - Patient Instructions Diet: Usual Diet as Tolerated, No Alcoholic Beverages Activity: As Tolerated Driving: May Drive Today Showering/Bathing: May Shower Notify Provider of: Nausea and/or Vomiting - Discharge Plan *PRESCRIPTION DRUG MONITORING PROGRAM REVIEWED*: No *COPY OF PRESCRIPTION DRUG MONITORING REPORT IN PATIENT HILDA: No Prescriptions/Med Rec: Dicyclomine [Bentyl] 10 mg PO QIDACANDBED PRN #15 cap PRN Reason: Abdominal Pain Nicotine [Habitrol] 21 mg TRDERM DAILY #30 patch Acetaminophen/HYDROcodone [[place] 325-5 MG] 1 tab PO Q3H PRN #10 tablet PRN Reason: Pain (Moderate 4-6) Promethazine [Phenergan] 25 mg PO Q6H PRN #5 tablet PRN Reason: Nausea/Vomiting Home Medications: Home Meds Acetaminophen/HYDROcodone [[place] 325-5 MG] 1 tab PO Q3H PRN #10 tablet 06/04/20 [Rx] Dicyclomine [Bentyl] 10 mg PO QIDACANDBED PRN #15 cap 06/04/20 [Rx] Nicotine [Habitrol] 21 mg TRDERM DAILY #30 patch 06/04/20 [Rx] Promethazine [Phenergan] 25 mg PO Q6H PRN #5 tablet 06/04/20 [Rx] Remove Patch 1 ea TRDERM DAILY each 06/04/20 [Rx] Oxygen Therapy Mode: Room Air Patient Handouts: Viral Gastroenteritis, Adult, [id number], Steps to Quit Smoking Referrals: Kerri Fonseca MD [Physician] - Sari Cormier NP [Ordering Only Provider] - 06/11/20 11:15 am (come 15 monutes prior to the apointment to register) - Discharge Summary/Plan Comment DC Time >30 min.: Yes - General Info Date of Service: 06/04/20 Admission Dx/Problem (Free Text: Admission Diagnosis/Problem Admission Diagnosis/Problem Enteritis Subjective Update: Patient states she is feeling well. No abdominal pain, nausea, or vomiting. Functional Status: Reports: Pain Controlled - Review of Systems General: Reports: No Symptoms HEENT: Reports: No Symptoms Pulmonary: Reports: No Symptoms Cardiovascular: Reports: No Symptoms Gastrointestinal: Reports: No Symptoms Musculoskeletal: Reports: No Symptoms Neurological: Reports: No Symptoms Psychiatric: Reports: No Symptoms - Patient Data Vitals - Most Recent: Last Vital Signs Temp 97.5 F 06/04/20 08:34 Pulse 63 06/04/20 08:34 Resp 18 06/04/20 08:34 BP 115/91 H 06/04/20 08:34 Pulse Ox 100 06/04/20 08:34 Weight - Most Recent: 189 lb 8 oz I&O - Last 24 hours: Intake & Output 06/03/20 06/04/20 06/04/20 22:59 06:59 14:59 Intake Total 1475 1000 Output Total 800 2950 Balance 675 -1307 Lab Results - Last 24 hrs: Laboratory Results - last 24 hr 06/03/20 06/04/20 06/04/20 Range/Units 04:37 04:37 04:37 WBC 5.00 (3.98-10.04) K/mm3 RBC 3.63 L (3.98-5.22) M/mm3 Hgb 13.4 (11.2-15.7) gm/dl Hct 39.9 (34.1-44.9) % MCV 109.9 H (79.4-94.8) fl MCH 36.9 H (25.6-32.2) pg MCHC 33.6 (32.2-35.5) g/dl RDW Std Deviation 51.0 H (36.4-46.3) fL Plt Count 228 (182-369) K/mm3 MPV 11.0 (9.4-12.3) fl Neut % (Auto) 51.6 (34.0-71.1) % Lymph % (Auto) 39.4 (19.3-51.7) % [place] % (Auto) 7.2 (4.7-12.5) % Eos % (Auto) 1.4 (0.7-5.8) Baso % (Auto) 0.2 (0.1-1.2) % Neut # (Auto) 2.58 (1.56-6.13) K/mm3 Lymph # (Auto) 1.97 (1.18-3.74) K/mm3 [place] # (Auto) 0.36 (0.24-0.36) K/mm3 Eos # (Auto) 0.07 (0.04-0.36) K/mm3 Baso # (Auto) 0.01 (0.01-0.08) K/mm3 Manual Slide Review Abnormal smear Abnormal smear Sodium 141 (136-145) mEq/L Potassium 3.7 (3.5-5.1) mEq/L Chloride 105 (98-107) mEq/L Carbon Dioxide 27 (21-32) mEq/L Anion Gap 12.7 (5-15) BUN 4 L (7-18) mg/dL Creatinine 0.6 (0.55-1.02) mg/dL Est Cr Clr Drug Dosing 122.51 mL/min Estimated GFR (MDRD) > 60 (>60) mL/min BUN/Creatinine Ratio 6.7 L (14-18) Glucose 80 (74-106) mg/dL Calcium 8.8 (8.5-10.1) mg/dL Magnesium 2.1 (1.8-2.4) mg/dl Total Bilirubin 1.3 H (0.2-1.0) mg/dL AST 91 H (15-37) U/L ALT 35 (14-59) U/L Alkaline Phosphatase 99 (46-116) U/L Total Protein 6.6 (6.4-8.2) g/dl Albumin 3.2 L (3.4-5.0) g/dl Globulin 3.4 gm/dL Albumin/Globulin Ratio 0.9 L (1-2) SHIMON Results - Last 24 hrs: Microbiology 06/02/20 06:10 Aerobic Blood Culture - Preliminary Blood - Venous - Lab Draw NO GROWTH AFTER 2 DAYS Anaerobic Blood Culture - Preliminary NO GROWTH AFTER 2 DAYS 06/02/20 05:40 Aerobic Blood Culture - Preliminary Blood - Venous NO GROWTH AFTER 2 DAYS Anaerobic Blood Culture - Preliminary NO GROWTH AFTER 2 DAYS Med Orders - Current: Current Medications Acetaminophen (Acetaminophen 325 Mg Tab) 650 mg PO Q4H PRN PRN Reason: Pain (Mild 1-3)/fever Hydrocodone Bitart/Acetaminophen (Acetaminophen/Hydrocodone 325-5 Mg Tab) 1 tab PO Q3H PRN PRN Reason: Pain (moderate 4-6) Last Admin: 06/04/20 08:35 Dose: 1 tab Documented by: Dicyclomine HCl (Dicyclomine 10 Mg Cap) 10 mg PO QIDACANDBED PRN PRN Reason: Abdominal Pain Last Admin: 06/04/20 06:38 Dose: 10 mg Documented by: Famotidine (Famotidine 20 Mg/2 Ml Sdv) 20 mg IVPUSH BID [facility] Last Admin: 06/04/20 08:24 Dose: 20 mg Documented by: Hydromorphone HCl (Hydromorphone 0.5 Mg/0.5 Ml Syringe) 0.5 mg IVPUSH Q2H PRN PRN Reason: Abdominal Pain Last Admin: 06/03/20 12:11 Dose: 0.5 mg Documented by: Miscellaneous Information (Remove Patch-Nicotine) 1 ea TRDERM DAILY [facility] Last Admin: 06/04/20 08:25 Dose: 1 ea Documented by: Nicotine (Nicotine 21 Mg/24 Hr Patch) 21 mg TRDERM DAILY [facility] Last Admin: 06/04/20 08:25 Dose: 21 mg Documented by: Ondansetron HCl (Ondansetron 4 Mg/2 Ml Sdv) 4 mg IV Q4H PRN PRN Reason: Nausea/Vomiting Last Admin: 06/03/20 06:50 Dose: 4 mg Documented by: Promethazine HCl (Promethazine 25 Mg Tab) 25 mg PO Q6H PRN PRN Reason: Nausea/Vomiting Last Admin: 06/03/20 17:35 Dose: 25 mg Documented by: Discontinued Medications Hydromorphone HCl (Hydromorphone 1 Mg/Ml Syringe) 1 mg IVPUSH ONETIME ONE Stop: 06/02/20 04:36 Last Admin: 06/02/20 04:51 Dose: 1 mg Documented by: Sodium Chloride (Normal Saline) 1,000 mls @ 1,000 mls/hr [facility] Last Admin: 06/02/20 04:51 Dose: 1,000 mls/hr Documented by: Sodium Chloride (Normal Saline) 100 mls @ 60 drops/min IV ASDIRECTED [facility] Last Admin: 06/02/20 05:20 Dose: 60 drops/min Documented by: Lactated Ringer's (Ringers, Lactated) 1,000 mls @ 500 mls/hr [facility] Last Admin: 06/02/20 06:54 Dose: 500 mls/hr Documented by: Lactated Ringer's (Ringers, Lactated) 500 mls @ 1,000 mls/hr IV .BOLUS ONE Stop: 06/02/20 10:04 Last Admin: 06/02/20 09:57 Dose: 1,000 mls/hr Documented by: Potassium Chloride/Dextrose/Sod Cl (D5 1/2 Ns W/ 20 Meq/L Kcl) 1,000 mls @ 150 mls/hr [facility] Last Admin: 06/03/20 03:40 Dose: 150 mls/hr Documented by: Magnesium Sulfate 4 gm/ Premix 50 mls @ 12.5 mls/hr IV ONETIME ONE Stop: 06/03/20 12:59 Last Admin: 06/03/20 09:15 Dose: 12.5 mls/hr Documented by: Iopamidol (Iopamidol 612 Mg/Ml 100 Ml Bottle) 100 ml IVPUSH ONETIME ONE Stop: 06/02/20 05:20 Last Admin: 06/02/20 05:21 Dose: 100 ml Documented by: Ondansetron HCl (Ondansetron 4 Mg/2 Ml Sdv) 4 mg IVPUSH ONETIME ONE Stop: 06/02/20 04:36 Last Admin: 06/02/20 04:51 Dose: 4 mg Documented by: Pantoprazole Sodium (Pantoprazole 40 Mg Vial) 40 mg IVPUSH ONETIME ONE Stop: 06/02/20 04:43 Last Admin: 06/02/20 06:00 Dose: 40 mg Documented by: Sodium Chloride (Sodium Chloride 0.9% 10 Ml Syringe) 10 ml FLUSH BOLUS TAMMY Last Admin: 06/02/20 05:20 Dose: 10 ml Documented by: - Exam Quality Assessment: Denies: Supplemental Oxygen General: Reports: Alert, Oriented HEENT: Reports: Pupils Equal, Mucous Membr. Moist/[place] Neck: Reports: Supple Lungs: Reports: Clear to Auscultation, Normal Respiratory Effort Cardiovascular: Reports: Regular Rate, Regular Rhythm GI/Abdominal Exam: Normal Bowel Sounds, Soft, Non-Tender, No Organomegaly, No Distention, No Abnormal Bruit, No Mass Extremities: Normal Inspection, Normal Range of Motion, Non-Tender, No Pedal Edema, Normal Capillary Refill Skin: Reports: Warm, Dry, Intact Neurological: Reports: No New Focal Deficit Psy/Mental Status: Reports: Alert, Normal Affect, Normal Mood
[2020-06-04] MEDS: Promethazine 25 MG Tab PO PRN (11:36)
== END 2020-06-04 11:40 | disposition home or self-care (01) ==
LOC: JD.ED 04:06 → JD.MS 07:23
PROVIDERS: ADMIT Family Medicine; ATTEND Family Medicine
DX: A08.4 Viral intestinal infection, unspecified (principal); K70.0 Alcoholic fatty liver; K50.00 Crohn's disease of small intestine without complications; K21.9 Gastro-esophageal reflux disease without esophagitis; E87.2 Acidosis; E83.42 Hypomagnesemia; N83.8 Other noninflammatory disorders of ovary, fallopian tube and broad ligament; F17.210 Nicotine dependence, cigarettes, uncomplicated; E66.9 Obesity, unspecified; Z68.30 Body mass index [BMI] 30.0-30.9, adult; Z20.822 Contact with and (suspected) exposure to COVID-19; Z91.040 Latex allergy status; Z87.19 Personal history of other diseases of the digestive system; Z98.890 Other specified postprocedural states; Z80.0 Family history of malignant neoplasm of digestive organs
CPT/HCPCS: 36415; 74177; 80053; 81001; 83605; 83690; 83735; 84703; 85025; 85610; 86140; 87040; 87045; 87046; 87635; 87899; A9270; C9113; J1170; J2405; J3475; J3480; J3490; J7030; J7120; J8597; Q9967; 96361; 96365; 96366; 96374; 96375; 96376; 99217; 99218; 99225; 99285; 99285-25; G0378; U0002

== ENCOUNTER 2020-07-03 07:52 | Day surgery (SDC) | payer MEDICAID, OTHER ==
--- NOTE | 2020-07-02 12:22 | PCM.PREANE ---
Preanesthetic Assessment - Procedure Proposed Procedure: EGD and Colonoscopy - Anesthesia/Transfusion/Family Hx Anesthesia History: Prior Anesthesia Reaction Type of Anesthesia Reaction: Excessive Nausea/Vomiting (scopalamine patch placed at 0830) Family History of Anesthesia Reaction: No Transfusion History: No Prior Transfusion(s) Intubation History: Unknown - Review of Systems General: No Symptoms Pulmonary: No Symptoms (Smoker: 0.5ppd times 20 years/currently attempting to quit/patch ETOH: gallon/week off for a month), Cough, Sputum (clear) Cardiovascular: No Symptoms, Palpitations Gastrointestinal: No Symptoms (GERD), Abdominal Pain (3/10), Constipation, Diarrhea, Melena, Nausea Neurological: No Symptoms (chronic lower back pain: 3/10), Headache (2/10) Other: Reports: Easy Bruising, Liver Problems (fatty liver), Throat Pain (From GERD), Depression, Anxiety - Physical Assessment NPO Status Date: 07/02/20 NPO Status Time: 23:00 Vital Signs: HR:82 Sat:96% Temp:97.3 B/P:120/69 Resp:16 Height: 1.68 m Weight: 82 kg ASA Class: 3 Mental Status: Alert & Oriented x3 Airway Class: Mallampati = 2 Dentition: Reports: Normal Dentition, Caries Thyro-Mental Finger Breadths: 3 Mouth Opening Finger Breadths: 3 ROM/Head Extension: Full Lungs: Clear to Auscultation, Normal Respiratory Effort Cardiovascular: Regular Rate, Regular Rhythm, No Murmurs - Lab Values: All labs reviewed and noted and within acceptable ranges to proceed with scheduled procedure. - Imaging/EKG Impressions: EKG: SR rate= 60 - Allergies Allergies/Adverse Reactions: Allergies Allergy/AdvReac Type Severity Reaction Status Date / Time latex Allergy Rash Verified 07/02/20 12:45 levofloxacin [From Levaquin] Allergy Itching Verified 07/02/20 12:45 - Acknowledgements Anesthesia Type Planned: MAC Pt an Appropriate Candidate for the Planned Anesthesia: Yes Alternatives and Risks of Anesthesia Discussed w Pt/Guardian: Yes Pt/Guardian Understands and Agrees with Anesthesia Plan: Yes PreAnesthesia Questionnaire HEENT History: Reports: None Cardiovascular History: Reports: Heart Murmur Other Respiratory History: smoker Gastrointestinal History: Reports: GERD, Hemorrhoids, Other (See Below) Other Gastrointestinal History: gastric ulcer Genitourinary History: Reports: None 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 Neurological History: Reports: Migraines Psychiatric History: Reports: Anxiety, Depression Other Psychiatric History: refuses medication, uses other techniques like color cordination, steps, and counting. Endocrine/Metabolic History: Reports: Obesity/BMI 30+ Hematologic History: Reports: None Immunologic History: Reports: None Oncologic (Cancer) History: Reports: None Dermatologic History: Reports: Psoriasis - Past Surgical History Head Surgeries/Procedures: Reports: None HEENT Surgical History: Reports: Oral Surgery Other HEENT Surgeries/Procedures: wisdom teeth removed Cardiovascular Surgical History: Reports: None Respiratory Surgical History: Reports: None GI Surgical History: Reports: Cholecystectomy Female Surgical History: Reports: D&C, Tubal Ligation Endocrine Surgical History: Reports: None Neurological Surgical History: Reports: None Musculoskeletal Surgical History: Reports: None Oncologic Surgical History: Reports: None Dermatological Surgical History: Reports: None - HOME MEDS Home Medications: Home Meds Acetaminophen/HYDROcodone [[place] 325-5 MG] 1 tab PO Q4H PRN 07/02/20 [History] Dicyclomine [Bentyl] 10 mg PO QID 07/02/20 [History] Docusate Sodium [Stool Softener] 100 mg PO DAILY 07/02/20 [History] Ibuprofen 800 mg PO Q6H PRN 07/02/20 [History] Nicotine [Nicotine Patch] 14 mg TOP Q24H 07/02/20 [History] Promethazine [Phenergan] 25 mg PO Q6H PRN 07/02/20 [History] - CURRENT (IN HOUSE) MEDS Current Meds: Current Medications Lactated Ringer's (Ringers, Lactated) 1,000 mls @ 125 mls/hr IV ASDIRECTED TAMMY Stop: 07/03/20 23:00 Lidocaine/Sodium Bicarbonate (Lidocaine 1%/Sod Bicarbonate In Ns 8.4% 1 Ml Syringe) 0.25 ml IDERM ONETIME PRN PRN Reason: Prior to IV Start Stop: 07/03/20 18:00 Sodium Chloride (Sodium Chloride 0.9% 10 Ml Syringe) 10 ml FLUSH ASDIRECTED PRN PRN Reason: Keep Vein Open Stop: 07/03/20 18:00
[~2020-07-03 07:52] MED LIST changes: -Dexamethasone 4 MG/ML SDV ONE; -Midazolam 1 MG/ML 2 ML SDV ONE; -Ondansetron 4 MG/2 ML SDV ONE
[2020-07-03] MEDS ORDERED: Scopolamine 1.5 MG Transdermal Patch TRDERM PRN (08:21)
[2020-07-03] MEDS ORDERED: Metoclopramide 10 MG/2 ML SDV ONE (09:18)
[2020-07-03] MEDS ORDERED: Ondansetron 4 MG/2 ML SDV ONE (09:18)
[2020-07-03] MEDS ORDERED: Ondansetron 4 MG/2 ML SDV IVPUSH PRN (09:41)
[2020-07-03] MEDS ORDERED: Lactated Ringers 1,000 ML ONE ×2 (09:44→10:05)
[2020-07-03] MEDS ORDERED: fentaNYL 100 MCG/2 ML SDV ONE (09:45)
[2020-07-03] MEDS ORDERED: ePHEDrine 50 MG/ML SDV ONE (09:48)
[2020-07-03] MEDS ORDERED: Propofol 200 MG/20 ML SDV ONE (09:58)
--- NOTE | 2020-07-03 10:37 | PCM48HPAN ---
Post Anesthesia Note - EVALUATION WITHIN 48HRS OF ANESTHETIC Vital Signs in Normal Range: Yes Patient Participated in Evaluation: Yes Respiratory Function Stable: Yes Airway Patent: Yes Cardiovascular Function Stable: Yes Hydration Status Stable: Yes Pain Control Satisfactory: Yes Nausea and Vomiting Control Satisfactory: Yes Mental Status Recovered: Yes Vital Signs: Last Vital Signs Temp 36.4 C 07/03/20 10:30 Pulse 64 07/03/20 10:35 Resp 16 07/03/20 10:35 BP 121/79 07/03/20 10:35 Pulse Ox 97 07/03/20 10:35
--- NOTE | 2020-07-03 10:41 | PCM.OPNOTE ---
- General Post-Op/Procedure Note Date of Surgery/Procedure: 07/03/20 Operative Procedure(s): EGD and colonoscopy Findings: 1. Bile reflux 2. Gastritis 3. Hiatal hernia 4. Irregular GE junction 5. Sigmoid polyp 6. Rectal polyp 7. Mucosal abnormality of sigmoid and rectum Pre Op Diagnosis: Abdominal pain Post-Op Diagnosis: same Anesthesia Technique: PO Primary Surgeon: Kerri Fonseca Anesthesia Provider: Alejandra Durham Pathology: 1. Gastric antrum 2. GE junction 3. Sigmoid and rectal biopsies 4. Sigmoid polyp 5. Rectal polyp Fluid Replacement, Intraop: 1,300 Output, Urine Amount: 0 EBL in mLs: 0 Complications: none apparent Condition: Good
--- NOTE | 2020-07-03 10:46 | PCM.PRNOTE ---
- Free Text/Narrative Note: Operative Report Date of Procedure: July 03, 2020 Pre Op Diagnosis: Abdominal pain Post-Op Diagnosis: same Operative Procedures: 1. EGD with biopsy 2. Colonoscopy to the cecum Primary Surgeon: Kerri Fonseca MD Anesthesia Provider: Alejandra Durham CRNA Anesthesia Technique: MAC IV Fluid Replacement, Intraop: 1300cc crystalloid Output, Urine Amount: 0cc EBL in mLs: 0cc Findings: 1. Bile reflux 2. Gastritis 3. Hiatal hernia 4. Irregular GE junction 5. Sigmoid polyp 6. Rectal polyp 7. Mucosal abnormality of sigmoid and rectum Specimens: 1. Gastric antrum 2. GE junction 3. Sigmoid and rectal biopsies 4. Sigmoid polyp 5. Rectal polyp Drain/Tubes: None Indication: The patient is a 34-year-old lady who presented to the clinic with findings of abdominal pain and recent history of hospitalization for vomiting and abdominal pain. The patient reported symptoms of continued abdominal pain. The patient was consented for a diagnostic EGD and colonoscopy. Risks of bleeding, and perforation were discussed, and the patient agreed to the risks and wished to proceed. Description of the procedure: The patient was taken back to the endoscopy suite, and placed in the left lateral decubitus position. A bite block was placed. The patient was sedated with MAC anesthesia. The Olympus video endoscope was inserted into the oropharynx and guided under direct vision into the esophagus, stomach, and duodenum. The duodenal bulb and second portion of the duodenum were unremarkable. The gastric antrum was inspected and cold biopsy forceps were used to take tissue samples for H. pylori. There were findings of gastritis. The scope was withdrawn to the stomach and retroflexed. There was a large amount of bilious fluid suctioned from the stomach. No erosions or ulcers were noted. The scope was withdrawn to the esophagus. A this point we noted a small, sliding hiatal hernia. The z-line was irregular, but only two biopsies were obtained of the GE junction due to the patient's respiratory status. The endoscope was then withdrawn. Next, anorectal examination was performed. No lesions, masses or hemorrhoids were noted externally or on palpation. The scope was placed into the rectum and advanced to cecum. Upon reaching the cecum, and the patients cecum was entered. There was minima tortuosity of the colon. The ileocecal valve was well visualized and the appendiceal orifice identified. At this point, the scope was slowly withdrawn, paying attention to the mucosa. Attempt was made to intubate the ileum due to the recent CT abdomen abnormalities, but this was not accomplished. The patient had good bowel prep, 95% of the mucosa was visible. A 3mm polyp was noted in the sigmoid and rectum, and each removed with a jumbo cold biopsy forceps. There was increased vascularity noted in the sigmoid and rectum, and this mucosa was biopsied with a cold jumbo biopsy forceps. In the rectum, scope was retroflexed and some hemorrhoidal tissue was noted. The scope was placed back in the lumen and excess air was aspirated. The scope was removed. The patient tolerated the procedure very well. Complications: None apparent Condition: The patient was transported to PACU in stable condition. Kerri Fonseca MD General Surgery
[2020-07-03 11:13] VITALS: BP 107/68; PULSE 65
== END 2020-07-03 11:10 | disposition home or self-care (01) ==
LOC: JD.SDS 07:52
PROVIDERS: ATTEND Surgery
DX: K63.5 Polyp of colon (principal); K62.1 Rectal polyp; K29.50 Unspecified chronic gastritis without bleeding; K44.9 Diaphragmatic hernia without obstruction or gangrene; E78.79 Other disorders of bile acid and cholesterol metabolism; K22.8 Other specified diseases of esophagus; K63.89 Other specified diseases of intestine; K64.9 Unspecified hemorrhoids; F17.210 Nicotine dependence, cigarettes, uncomplicated; E11.9 Type 2 diabetes mellitus without complications; E66.9 Obesity, unspecified; Z68.29 Body mass index [BMI] 29.0-29.9, adult; Z91.040 Latex allergy status; Z88.8 Allergy status to other drugs, medicaments and biological substances; Z79.899 Other long term (current) drug therapy; Z87.19 Personal history of other diseases of the digestive system; Z98.890 Other specified postprocedural states
CPT/HCPCS: 43239; 45380; A9270; J2405; J2704; J2765; J3010; J7120; 00813

== ENCOUNTER 2020-08-29 13:34 | Emergency (ER) | payer MEDICAID, OTHER ==
[2020-08-29 14:09] VITALS: BP 100/62; PULSE 74
[2020-08-29] MEDS ORDERED: Ketorolac 60 MG/2 ML SDV IM ONE (14:18)
[2020-08-29] MEDS ORDERED: Cyclobenzaprine 10 MG Tab PO ONE (14:18)
--- NOTE | 2020-08-29 14:54 | CR ---
Lumbar spine: AP and lateral views of the lumbar spine were obtained. Mild scoliosis is seen. Vertebral body heights and disc spaces are maintained. Very slight scattered end plate osteophytes are seen. Pedicles are intact. Visualized transverse and spinous processes are intact. Surgical clips are noted from prior cholecystectomy. Sacroiliac joints are within normal limits. Impression: 1. Scoliosis. 2. Prior cholecystectomy. 3. Minimal scattered endplate osteophytes. Diagnostic code #2
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
== END 2020-08-29 15:38 | disposition home or self-care (01) ==
LOC: JD.ED 13:34
DX: M54.41 Lumbago with sciatica, right side (principal); M54.42 Lumbago with sciatica, left side; Z72.0 Tobacco use; E66.9 Obesity, unspecified; Z68.30 Body mass index [BMI] 30.0-30.9, adult; Z91.040 Latex allergy status; Z88.1 Allergy status to other antibiotic agents
CPT/HCPCS: 72100; 96372; 99283; A9270; J1885

== ENCOUNTER 2020-10-11 23:21 | Day surgery (SDC) | payer MEDICAID ==
[2020-10-11] MEDS ORDERED: LORazepam 2 MG/ML SDV IVPUSH ONE (23:30)
[2020-10-11] MEDS ORDERED: Dextrose 5%-0.9% NaCl 1,000 ML IV SCH (23:30)
[2020-10-11] MEDS ORDERED: HYDROmorphone 0.5 MG/0.5 ML Syringe IVPUSH ONE (23:31)
[2020-10-11] MEDS ORDERED: ceFAZolin 1 GM in Premix Bag 1 BAG IV ONE (23:38)
--- NOTE | 2020-10-11 23:40 | EDM.PDOC ---
ED HPI GENERAL MEDICAL PROBLEM - General Chief Complaint: Head Injury Stated Complaint: [facility] Time Seen by Provider: 10/11/20 23:21 Source of Information: Reports: Patient History Limitations: Reports: Intoxication - History of Present Illness INITIAL COMMENTS - FREE TEXT/NARRATIVE: 35-year-old female presents to the ED per [facility] after reportedly slipping in some oil and falling down 2 flights of stairs that contained at least 5-7 stairs each. She essentially went down the stairs face first. She has suffered multiple injuries to her mid facial structures including the chin lacerations to the nose contusions to forehead left temporal skull with reported loss of consciousness for about 10 minutes. Children apparently called the ambulance. Complaining of diffuse cervical neck pain headache. She was nauseated in the ambulance on the way to town but did not vomit. She has injuries to her shoulders particular on the left side with inability to abduct or forward flex at the shoulder. Pain appears to be over the distal left clavicle and acromioclavicular joint on the left side. Multiple abrasions to the right anterior shoulder with limited ability to forward flex and abduct due to pain. Mild contusion central chest. No obvious injuries to her hands wrists. She is unwilling to pronate or supinate at the left elbow. Complains o f pain in the midline cervical spine but will not allow C-spine or c-collar placement. She feels like her teeth do not line up i.e. malocclusion. The chin itself is markedly ecchymotic and swollen. No injuries to the chest wall that I could define. No injuries to the abdomen. No injuries to the pelvis and lower extremities show contusions to the left knee and superficial abrasions but no fractures with full range of motion of hips pelvis knees ankles and feet. No obvious injuries to the thoracic or lumbar spine. Patient appears that she has significant lacerations to her mid facial structures that are going to require laceration repair. She reports that she had a large meal approximately 20 to 30 hours this evening. She has been drinking alcohol since getting off work tonight and estimates that she has had 6-8 drinks. She appears intoxicated. She denies any possibility of . She believes she is up-to-date on her tetanus vaccination. Onset: Today, Sudden Onset Date: 10/11/20 Onset Time: 22:45 Duration: Minutes:, Constant Location: Reports: Head, Face, Neck, Upper Extremity, Left (Right anterior shoulder left anterior shoulder left elbow with inability to pronate supinate.), Upper Extremity, Right, Lower Extremity, Left (Abrasion contusion over the patella left knee). Denies: Lower Extremity, Right Quality: Reports: Ache, Burning, Other (Complains of malocclusion inability to close her mouth normally.) Severity: Moderate Improves with: Reports: None Worsens with: Reports: Other (Unwilling to move her neck in any fashion or form) Context: Reports: Trauma (Fell down apparently 2 separate flights of stairs face first each stairwell containing 5-7 stairs). Denies: Activity, Exercise, Lifting, Sick Contact Associated Symptoms: Reports: Cough (Vaginal nonproductive cough), Nausea/Vomiting (Nausea without vomiting. This was particularly). Denies: Confusion, Chest Pain, Diaphoresis, Fever/Chills, Headaches, Loss of Appetite, Malaise ( occasional sputum production), Rash ( evident in the ambulance on the way to town a motion sickness), Seizure, Shortness of Breath, Syncope, Weakness Treatments BOTTOM LINER: Reports: Other (see below) (None.) Left Shoulder Pain Score (Numeric/FACES): 10 - Related Data Allergies Allergy/AdvReac Type Severity Reaction Status Date / Time latex Allergy Rash Verified 08/29/20 13:58 levofloxacin [From Levaquin] Allergy Itching Verified 08/29/20 13:58 Home Meds: Home Meds Ibuprofen 800 mg PO Q6H PRN 07/02/20 [History] Promethazine [Phenergan] 25 mg PO Q6H PRN 07/02/20 [History] Sucralfate [Carafate] 1 gm PO ACBED #120 tab 07/03/20 [Rx] Cyclobenzaprine [Flexeril] 10 mg PO TID PRN #10 tab 08/29/20 [Rx] Hydrocodone/Acetaminophen [HYDROcodone-Acetaminophen 5-325 MG] 1 each PO Q4H PRN #10 tablet 08/29/20 [Rx] Lidocaine [Lidoderm] 1 each TP Q12H #10 adh..patch 08/29/20 [Rx] polyethylene glycoL 3350 [MiraLAX] 17 gm PO ASDIRECTED 08/29/20 [History] predniSONE [Prednisone] 20 mg PO ASDIRECTED #15 tablet 08/29/20 [Rx] oxyCODONE HCl/Acetaminophen [Percocet 5-325 mg Tablet] 1 - 2 each PO Q4H PRN #20 tablet 10/12/20 [Rx] Past Medical History HEENT History: Reports: None. 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 Neurological History: Reports: Migraines Psychiatric History: Reports: Addiction (Alcohol), Anxiety, Depression Other Psychiatric History: refuses medication, uses other techniques like color cordination, steps, and counting. Endocrine/Metabolic History: Reports: Obesity/BMI 30+ Hematologic History: Reports: None Immunologic History: Reports: None Oncologic (Cancer) History: Reports: None Dermatologic History: Reports: Psoriasis - Infectious Disease History Infectious Disease History: Reports: Chicken Pox, Measles - Past Surgical History Head Surgeries/Procedures: Reports: None HEENT Surgical History: Reports: Oral Surgery Other HEENT Surgeries/Procedures: wisdom teeth removed Cardiovascular Surgical History: Reports: None Respiratory Surgical History: Reports: None GI Surgical History: Reports: Cholecystectomy Female Surgical History: Reports: D&C, Tubal Ligation Endocrine Surgical History: Reports: None Neurological Surgical History: Reports: None Musculoskeletal Surgical History: Reports: None Oncologic Surgical History: Reports: None Dermatological Surgical History: Reports: None Social & Family History - Family History Cardiac: Reports: [place] Other Cardiac Family History: grandfather GI: Reports: Irritable Bowel Syndrome Other GI Family History: grandmother : Reports: UTI, Recurrent Other Family History: grandmother and self Musculoskeletal: Reports: Arthritis Other Musculoskeletal Family History: mother and grandmother, father, and grandfather Psychiatric: Reports: ADHD, Bipolar Other Psychiatric Family History: Son ADHD. Father bipolar Oncologic: Reports: Colon, Other (See Below) Other Oncologic Family History: Grandfather colon cancer. Grandmother stomach cancer - Caffeine Use Caffeine Use: Reports: Tea - Living Situation & Occupation Living situation: Reports: , with Spouse, with Family (4 kids) Occupation: Unemployed ED ROS GENERAL - Review of Systems Review Of Systems: See Below Constitutional: Denies: Fever, Chills, Malaise, Weakness, Fatigue, Weight Loss HEENT: Reports: No Symptoms. Denies: Contact Lenses, Glasses Respiratory: Reports: Cough. Denies: Shortness of Breath, Wheezing, Pleuritic Chest Pain, Sputum, Hemoptysis Cardiovascular: Reports: Blood Pressure Problem. Denies: Chest Pain (Productive), Claudication, Dyspnea on Exertion, Edema, Lightheadedness, Orthopnea, Palpitations Endocrine: Reports: Fatigue GI/Abdominal: Reports: No Symptoms, Abdominal Pain. Denies: Constipation, Diarrhea, Decreased Appetite : Reports: No Symptoms Musculoskeletal: Reports: Other (Previous fractures to both elbows and right ankle. Mended mobility in those joints) Skin: Reports: No Symptoms Neurological: Reports: Headache. Denies: Confusion, Dizziness, Numbness, Paresthesia, Pre-Existing Deficit, Seizure, Syncope, Tingling, Tremors, Trouble Speaking, Difficulty Walking, Weakness Psychiatric: Reports: Anxiety, Depression ED EXAM, HEAD INJURY - Physical Exam Exam: See Below Exam Limited By: Intoxication (Very dramatic in her presentation due to being intoxicated.) General Appearance: Moderate Distress, Other (Screaming with pain on movement f [facility] ambulance gurney to [facility] in the ED. Complains of severe pain left shoulder cervical spine mid facial structures including chin nose and forehead) Head: Scalp Swelling (Sniffing and hematomas mid scalp left temporal scalp with associated abrasions and hematomas.), Active Bleeding (Right nares. 3 separate lacerations across the nose 1 cm at the bridge 2 cm mid nose and 3 cm anterior distal nose that will require laceration repair. There is also a 2 cm laceration to the left lobe of her ear that will require laceration repair.), Facial Abrasions (Multiple facial abrasions), Facial Lacerations (2 cm left ear 3 separate lacerations to nose.), Facial Swelling (Small lacerations across the bridge of her nose and active bleeding from right nares particularly.), Sinus Tenderness (Left side), Other (Marked hematoma chin with reported malocclusion by the patient. Her speech is nearly normal however.) Nexus Criteria: Posterior, Midline Cervical Tenderness, Evidence of Intoxication. No: Altered Level of Consciousness, Focal Neurological Deficit, Painful Distraction Injuries Eyes: Bilateral Eye: Normal Inspection, Nystagmus (Nystagmus on lateral gaze.), PERRL (Pupils are equal and responsive to light and accommodation in approximately are 6 mm dilated and equal) Ears: Other (Left ear canal is filled with fresh blood from her facial wounds. No obvious injuries to the ears and initial evaluation.) Nose: Nasal Swelling (suture repair.), Nasal Tenderness, Nasal Ecchymosis, Active Bleeding (Primarily from the right side of the nose.), Other (To lacerations bridge of nose that is going to require active bleeding from both anterior naris). No: Septal Hematoma (I could no not define any septal hematoma at the initial exam) Throat/Mouth: Normal Inspection, Normal Lips, Normal Teeth, Normal Oropharynx, Other (Ems that she has malocclusion with her teeth not matching up. She does have blood running down the posterior oropharynx presumably from nasal injuries.) Neck: Spinous Processes Tender (Cervical spine.), Other (She complains of pain throughout palpation in the midline of the cervical spine. She would not let paramedics place her in his cervical spine. Nurses will talk to her after they get her pain under control and hopefully place her in a c-collar.) Respiratory: No Respiratory Distress, Lungs Clear, Normal Breath Sounds, No Accessory Muscle Use, Other (Pressure of chest wall gave her no pain. Compression of her sternum gave her no pain. Breasts were not examined) Cardiovascular: Normal Peripheral Pulses, Regular Rate, Rhythm, No Edema, No Gallop, No Murmur, No Rub GI/Abdominal Exam: Normal Bowel Sounds, Soft, Non-Tender, No Organomegaly, No Mass, Pelvis Stable, Other (Radha is cool clammy and wet and cold. Soft palpation with no organomegaly or masses. No peritoneal signs). No: Guarding, Rigid, Rebound, Tender Back Exam: Normal Inspection, Other (Basic contusions abrasions to her lumbar or cervical spine.). No: Full Range of Motion, CVA Tenderness (L) (Motion not evaluated.), CVA Tenderness (R) Extremities: Normal Range of Motion (Normal range of motion of hips knees ankles and feet. She has abrasions and contusions to her left patella), Limited Range of Motion (Left arm and shoulder), Other (Pain and tenderness distal aspect of left clavicle and over the acromioclavicular joint with inability to forward flex or abduct the left arm due to pain. Limited pronation supination at the elbow left side. Abrasions over the right anterior shoulder with limited anterior flexion and abduction. C) Neurologic: surgical oncologist II-XII nml As Tested ( without clinical evidence of bony fractures), No Motor/Sensory Deficits, Alert, Oriented x 3, Other (Somewhat dramatic affect). No: Normal Mood/Affect Skin: Other - Jameel Coma Score Best Eye Response (Gates): (4) Open Spontaneously (Facial lacerations particularly bridge of nose) Best Verbal Response (Gates): (5) Oriented Best Motor Response (Gates): (6) Obeys Commands Jameel Total: 15 Course - Vital Signs Last Recorded V/S: Last Vital Signs Temp 36.9 C 10/12/20 11:30 Pulse 99 10/12/20 13:01 Resp 20 10/12/20 11:30 BP 153/86 H 10/12/20 13:01 Pulse Ox 99 10/12/20 13:01 - Orders/Labs/Meds Labs: Laboratory Tests 10/11/20 10/11/20 10/11/20 Range/Units 23:44 23:44 23:44 WBC 9.55 (3.98-10.04) K/mm3 RBC 4.42 (3.98-5.22) M/mm3 Hgb 16.3 H D (11.2-15.7) gm/dl Hct 45.1 H (34.1-44.9) % MCV 102.0 H D (79.4-94.8) fl MCH 36.9 H (25.6-32.2) pg MCHC 36.1 H (32.2-35.5) g/dl RDW Std Deviation 52.6 H (36.4-46.3) fL Plt Count 255 (182-369) K/mm3 MPV 9.9 (9.4-12.3) fl Neut % (Auto) 72.1 H (34.0-71.1) % Lymph % (Auto) 21.4 (19.3-51.7) % [place] % (Auto) 5.3 (4.7-12.5) % Eos % (Auto) 0.6 L (0.7-5.8) Baso % (Auto) 0.1 (0.1-1.2) % Neut # (Auto) 6.88 H (1.56-6.13) K/mm3 Lymph # (Auto) 2.04 (1.18-3.74) K/mm3 [place] # (Auto) 0.51 H (0.24-0.36) K/mm3 Eos # (Auto) 0.06 (0.04-0.36) K/mm3 Baso # (Auto) 0.01 (0.01-0.08) K/mm3 PT 11.0 (9.7-12.0) SECONDS INR 1.03 APTT 22.5 (21.7-31.4) SECONDS Sodium 142 (136-145) mEq/L Potassium 3.0 L (3.5-5.1) mEq/L Chloride 104 (98-107) mEq/L Carbon Dioxide 21 (21-32) mEq/L Anion Gap 20.0 H (5-15) BUN 6 L (7-18) mg/dL Creatinine 0.9 (0.55-1.02) mg/dL Est Cr Clr Drug Dosing 80.90 mL/min Estimated GFR (MDRD) > 60 (>60) mL/min BUN/Creatinine Ratio 6.7 L (14-18) Glucose 117 H (70-99) mg/dL Calcium 8.5 (8.5-10.1) mg/dL Magnesium 2.0 (1.8-2.4) mg/dL Total Bilirubin 0.9 (0.2-1.0) mg/dL AST 61 H (15-37) U/L ALT 24 (14-59) U/L Alkaline Phosphatase 98 (46-116) U/L Total Protein 8.1 (6.4-8.2) g/dl Albumin 4.1 (3.4-5.0) g/dl Globulin 4.0 gm/dL Albumin/Globulin Ratio 1.0 (1-2) HCG, Qual (NEGATIVE) Urine Color (Yellow) Urine Appearance (Clear) Urine pH (5.0-8.0) Ur Specific [place] (1.005-1.030) Urine Protein (Negative) Urine Glucose (UA) (Negative) Urine Ketones (Negative) Urine Occult Blood (Negative) Urine Nitrite (Negative) Urine Bilirubin (Negative) Urine Urobilinogen (0.2-1.0) Ur Leukocyte Esterase (Negative) U Hyaline Cast (Auto) (0-5) /lpf Urine RBC (0-5) /hpf Urine WBC (0-5) /hpf Ur Squamous Epith Cells (0-5) /hpf Urine Bacteria (FEW) /hpf Urine Mucus (FEW) /hpf Urine Opiates Screen (MNANDA=919) Ur Buprenorphine Scrn (CUTOFF=10) Ur Oxycodone Screen (RSS5ES=651) Urine Methadone Screen (NWWDRT=242) Ur Propoxyphene Screen (HGSPDG=413) Ur Barbiturates Screen (MGLBIT=575) Ur Tricyclics Screen (YOMEPF=130) Ur Phencyclidine Scrn (CUTOFF=25) Ur Amphetamine Screen (AZPQMK=897) U Methamphetamines Scrn (LZGYQU=124) U Benzodiazepines Scrn (GETJNV=685) U Cocaine Metab Screen (BPWVNA=298) U Marijuana (THC) Screen (CUTOFF=50) Ethyl Alcohol 0.20 (0.00) gm% 10/11/20 10/12/20 10/12/20 Range/Units 23:44 04:07 04:07 WBC (3.98-10.04) K/mm3 RBC (3.98-5.22) M/mm3 Hgb (11.2-15.7) gm/dl Hct (34.1-44.9) % MCV (79.4-94.8) fl MCH (25.6-32.2) pg MCHC (32.2-35.5) g/dl RDW Std Deviation (36.4-46.3) fL Plt Count (182-369) K/mm3 MPV (9.4-12.3) fl Neut % (Auto) (34.0-71.1) % Lymph % (Auto) (19.3-51.7) % [place] % (Auto) (4.7-12.5) % Eos % (Auto) (0.7-5.8) Baso % (Auto) (0.1-1.2) % Neut # (Auto) (1.56-6.13) K/mm3 Lymph # (Auto) (1.18-3.74) K/mm3 [place] # (Auto) (0.24-0.36) K/mm3 Eos # (Auto) (0.04-0.36) K/mm3 Baso # (Auto) (0.01-0.08) K/mm3 PT (9.7-12.0) SECONDS INR APTT (21.7-31.4) SECONDS Sodium (136-145) mEq/L Potassium (3.5-5.1) mEq/L Chloride (98-107) mEq/L Carbon Dioxide (21-32) mEq/L Anion Gap (5-15) BUN (7-18) mg/dL Creatinine (0.55-1.02) mg/dL Est Cr Clr Drug Dosing mL/min Estimated GFR (MDRD) (>60) mL/min BUN/Creatinine Ratio (14-18) Glucose (70-99) mg/dL Calcium (8.5-10.1) mg/dL Magnesium (1.8-2.4) mg/dL Total Bilirubin (0.2-1.0) mg/dL AST (15-37) U/L ALT (14-59) U/L Alkaline Phosphatase (46-116) U/L Total Protein (6.4-8.2) g/dl Albumin (3.4-5.0) g/dl Globulin gm/dL Albumin/Globulin Ratio (1-2) HCG, Qual Negative (NEGATIVE) Urine Color Yellow (Yellow) Urine Appearance Slt cloudy H (Clear) Urine pH 5.5 (5.0-8.0) Ur Specific [place] > or = 1.030 (1.005-1.030) Urine Protein 2+ H (Negative) Urine Glucose (UA) Negative (Negative) Urine Ketones 2+ H (Negative) Urine Occult Blood Negative (Negative) Urine Nitrite Negative (Negative) Urine Bilirubin Negative (Negative) Urine Urobilinogen 0.2 (0.2-1.0) Ur Leukocyte Esterase Negative (Negative) U Hyaline Cast (Auto) 20-30 H (0-5) /lpf Urine RBC 0-5 (0-5) /hpf Urine WBC 0-5 (0-5) /hpf Ur Squamous Epith Cells 0-5 (0-5) /hpf Urine Bacteria Moderate H (FEW) /hpf Urine Mucus Many H (FEW) /hpf Urine Opiates Screen Presumptive positive H (XKRNPM=362) Ur Buprenorphine Scrn Negative (CUTOFF=10) Ur Oxycodone Screen Negative (PJZ0RE=710) Urine Methadone Screen Negative (TNHWJS=164) Ur Propoxyphene Screen Negative (EJEZJB=479) Ur Barbiturates Screen Negative (NEKGPB=102) Ur Tricyclics Screen Negative (GGQGVO=425) Ur Phencyclidine Scrn Negative (CUTOFF=25) Ur Amphetamine Screen Negative (UTOQGF=059) U Methamphetamines Scrn Negative (JNZTNK=705) U Benzodiazepines Scrn Presumptive positive H (QOBXSV=845) U Cocaine Metab Screen Negative (CRFUTC=022) U Marijuana (THC) Screen Presumptive positive H (CUTOFF=50) Ethyl Alcohol (0.00) gm% Meds: Medications Discontinued Medications Generic Name Dose Route Start Last Admin Trade Name Freq PRN Reason Stop Dose Admin Bacitracin Confirm 10/12/20 08:41 10/12/20 10:40 Bacitracin Oint 15 Gm Tube Administered 10/12/20 08:42 1 gm Dose Administration 15 gm .ROUTE .STK-MED ONE Bupivacaine HCl Confirm 10/12/20 08:40 Bupivacaine 0.5% 30 Ml Sdv Administered 10/12/20 08:41 Dose 30 ml .ROUTE .STK-MED ONE Bupivacaine HCl/Epinephrine Bitart Confirm 10/12/20 08:41 Bupivacaine 0.5%/Epinephrine 1:200,000 50 Ml Mdv Administered 10/12/20 08:42 Dose 50 ml .ROUTE .STK-MED ONE Dexamethasone Confirm 10/12/20 08:36 Dexamethasone 4 Mg/Ml 5 Ml Mdv Administered 10/12/20 08:37 Dose 20 mg .ROUTE .STK-MED ONE Fentanyl Confirm 10/12/20 08:37 Fentanyl 100 Mcg/2 Ml Sdv Administered 10/12/20 08:38 Dose 100 mcg .ROUTE .STK-MED ONE Fentanyl 100 mcg 10/12/20 09:36 Fentanyl 100 Mcg/2 Ml Sdv IVPUSH 10/12/20 23:00 ONETIME PRN Pain Fentanyl Confirm 10/12/20 09:49 Fentanyl 100 Mcg/2 Ml Sdv Administered 10/12/20 09:50 Dose 100 mcg .ROUTE .STK-MED ONE Glycopyrrolate Confirm 10/12/20 08:36 Glycopyrrolate 0.2 Mg/Ml 2 Ml Syringe Administered 10/12/20 08:37 Dose 0.4 mg .ROUTE .STK-MED ONE Hydromorphone HCl 0.5 mg 10/11/20 23:31 10/11/20 23:52 Hydromorphone 0.5 Mg/0.5 Ml Syringe IVPUSH 10/11/20 23:32 0.5 mg ONETIME ONE Administration Hydromorphone HCl 0.5 mg 10/12/20 00:45 10/12/20 00:51 Hydromorphone 0.5 Mg/0.5 Ml Syringe IVPUSH 10/12/20 00:46 0.5 mg ONETIME ONE Administration Hydromorphone HCl 0.5 mg 10/12/20 02:42 10/12/20 02:56 Hydromorphone 0.5 Mg/0.5 Ml Syringe IVPUSH 10/12/20 02:43 0.5 mg ONETIME ONE Administration Hydromorphone HCl 0.5 mg 10/12/20 07:21 10/12/20 07:29 Hydromorphone 0.5 Mg/0.5 Ml Syringe IVPUSH 10/12/20 07:22 0.5 mg ONETIME ONE Administration Hydromorphone HCl 0.5 mg 10/12/20 09:36 Hydromorphone 0.5 Mg/0.5 Ml Syringe IVPUSH 10/12/20 23:00 ONETIME PRN Pain (severe 7-10) Dextrose/Sodium Chloride 1,000 mls @ 150 mls/hr 10/11/20 23:30 10/11/20 23:54 Dextrose 5%-Normal Saline IV 150 mls/hr ASDIRECTED TAMMY Administration Cefazolin Sodium/Dextrose 1 gm 50 mls @ 100 mls/hr 10/11/20 23:38 10/11/20 23:54 / Premix IV 10/12/20 00:07 100 mls/hr ONETIME ONE Administration Potassium Chloride 10 meq/ 100 mls @ 100 mls/hr 10/12/20 07:00 10/12/20 08:14 Premix IV 10/12/20 08:59 100 mls/hr Q1H TAMMY Administration Lactated Ringer's 1,000 mls @ 125 mls/hr 10/12/20 07:00 10/12/20 07:29 Ringers, Lactated IV 10/12/20 23:00 125 mls/hr ASDIRECTED TAMMY Administration Lidocaine HCl Confirm 10/12/20 08:36 Xylocaine-Mpf 1% Administered 10/12/20 08:37 Dose 4 mls @ as directed .ROUTE .STK-MED ONE Lidocaine HCl Confirm 10/12/20 09:25 10/12/20 09:28 Lidocaine 1% 30 Ml Sdv Administered 10/12/20 09:26 4 ml Dose Administration 30 ml .ROUTE .STK-MED ONE Lidocaine/Epinephrine Confirm 10/12/20 08:40 Lidocaine 1% With Epinephrine 1:100,000 10 Ml Mdv Administered 10/12/20 08:41 Dose 10 ml .ROUTE .STK-MED ONE Lorazepam 1 mg 10/11/20 23:30 10/11/20 23:46 Lorazepam 2 Mg/Ml Sdv IVPUSH 10/11/20 23:31 1 mg ONETIME ONE Administration Lorazepam 1 mg 10/12/20 02:42 10/12/20 02:55 Lorazepam 2 Mg/Ml Sdv IVPUSH 10/12/20 02:43 1 mg ONETIME ONE Administration Metoclopramide HCl 7.5 mg 10/12/20 00:56 10/12/20 01:03 Metoclopramide 10 Mg/2 Ml Sdv IVPUSH 10/12/20 00:57 7.5 mg ONETIME ONE Administration Metoclopramide HCl Confirm 10/12/20 08:44 Metoclopramide 10 Mg/2 Ml Sdv Administered 10/12/20 08:45 Dose 10 mg .ROUTE .STK-MED ONE Midazolam HCl Confirm 10/12/20 08:48 Midazolam 1 Mg/Ml 2 Ml Sdv Administered 10/12/20 08:49 Dose 4 mg .ROUTE .STK-MED ONE Ondansetron HCl 4 mg 10/11/20 23:46 10/11/20 23:50 Ondansetron 4 Mg/2 Ml Sdv IVPUSH 10/11/20 23:47 4 mg ONETIME ONE Administration Ondansetron HCl Confirm 10/12/20 08:36 Ondansetron 4 Mg/2 Ml Sdv Administered 10/12/20 08:37 Dose 8 mg .ROUTE .STK-MED ONE Propofol Confirm 10/12/20 08:38 Propofol 200 Mg/20 Ml Sdv Administered 10/12/20 08:39 Dose 400 mg .ROUTE .STK-MED ONE Scopolamine 1.5 mg 10/12/20 08:06 10/12/20 08:14 Scopolamine 1.5 Mg Transdermal Patch TOP 10/12/20 08:07 1.5 mg ONETIME ONE Administration - Radiology Interpretation Free Text/Narrative:: 35-year-old female presents to the ED from [facility] where she resides. The history is that she slipped on some oil outside stairs and went to face first down 2 flights of stairs each containing 5-7 stairs. She suffered multiple injuries to her mid facial structures including the chin with malocclusion reported. Lacerations to the bridge of the nose contusions to the forehead left temporal scalp with reported loss of consciousness for about 10 minutes. This came from the patient however. Diffuse cervical neck pain on examination with refusal to move in any direction. She had refused cervical collar placement by paramedics but it will be placed in the ED. She has injuries to her left shoulder distal clavicle and acromioclavicular joint area and possibly left humerus. Abrasions to the right anterior shoulder without suspect fracture. No significant injuries to the anterior chest wall or abdomen identified. Abrasions contusions to the left patella but full range of motion of both hips knees ankles and toes. Also no significant injuries to the right upper extremity with normal hand wrist and full pronation supination at the elbow but difficulty to abduct at the right shoulder. Plan CT head CT cervical spine CT maxillofacial bones x-rays left shoulder left humerus left forearm and 1 view chest to be done. Given Ancef 1 g IV for open facial wounds. She believes her tetanus toxoid is up-to-date. Given Dilaudid 0.5 mg IV with 1 mg of Ativan IV to provide sedation as she is extremely dramatic and histrionic in her presentation to the ED with multiple potential serious injuries. Given Zofran 4 mg IV for nausea relief. Of note she had a large meal which contain chicken approximately 22 :30 hours this evening. - Re-Assessments/Exams Free Text/Narrative Re-Assessment/Exam: 10/12/20 00:33 White count is 9.55 with auto differential showing 72% neutrophils. Hemoglobin is mildly elevated at 16.3 with hematocrit of 45.1 suggesting mild hemoconcentration. MCV mildly elevated 102.0. Platelet count 255,000. PT is 11.0 with an INR of 1.03 and a PTT of 22.5. Sodium 142 with potassium low at 3.0. Chloride 104 with a bicarb of 21. Anion gap is 20.0. BUN is 6 with a creatinine of 0.9. GFR is greater than 60. Glucose 117 with a calcium of 8.5. Magnesium is 2.0 bilirubin is 0.9 with an AST of 61 and an ALT of 24. Alkaline phosphatase is normal at 98. Total protein slightly elevated 8.1 with albumin fraction of 4.1. Serum hCG is negative. Blood alcohol is c urrently 0.20 g% 10/12/20 01:11 CT of the head has been completed without contrast. Brain reveals it to be normal with no hemorrhage and no unremarkable white matter. No mass-effect is identified. No ventriculomegaly. Visualized mastoid air cells are well aerated. No acute fractures of the calvarium identified. Acutely mild displaced bilateral nasal bone fractures appreciated. Mild soft tissue contusions of the anterior and left lateral head and face. Mild soft tissue contusion and mild subcutaneous emphysema of the nose appreciated. CT of the maxillofacial bones reveals the inferior mandible is not entirely imaged on this examination which I agree with. I cannot visualize the mentum which is markedly swollen on clinical exam. Orbits are normal globes are unremarkable. Acute mildly displaced bilateral nasal bone fractures identified involving both alae of the nose. Nasal spine is also fractured distally. Mild mucosal thickening in the the bilateral ethmoid and maxillary sinuses and left sphenoid sinus with no air-fluid level seen. Soft tissue contusions with subcutaneous emphysema of the nose and upper lip identified. Soft tissue contusion overlying the anterior mandible soft tissue contusion overlying the left zygomatic arch. Impression is acutely mildly displaced bilateral nasal bone fractures with multiple acute soft tissue injuries of the face. X-rays of the left shoulder do not reveal any fractures of the clavicle or obvious displacement of the acromioclavicular joint. X-rays of the left humerus are also within normal limits showing no bony injuries. X- rays of the left forearm do not reveal any abnormality within the bony structures of the ulna and radius with no increased swelling of the fat pads wesley th anterior posteriorly within the left elbow. Chest x-ray was done 1 view seated and reveals no obvious rib injuries no pulmonary contusion or pneumothorax. The right humerus and clavicle bone are also easily visualized on this film and showed no abnormalities. 10/12/20 01:30 CT of the cervical spine has been completed without contrast. No acute fractures were identified with normal alignment. Multiple cervical degenerative disc disease is evident. Mild to moderate central canal narrowing at the C5-C6 level and mild central canal narrowing at the C6-C7 level. Lung AP apices are normal. Soft tissues are unremarkable. My plan will be to keep her in the emergency room overnight since she just ate an hour before this accident occurred. It is my impression that she should go to the operating room to have her wounds properly cleansed and sutured under local anesthetic particularly in view of the fact that she has fractured her nose on both sides. She is on likely to tolerate local anesthetic in multiple areas that need to be repaired. Total lacerations across her nose are around 6 cm with 2 cm of the left earlobe. I would discuss case with on-call surgeon later this morning 10/12/20 02:43 Patient is asking for a more analgesia due to facial injuries. We will repeat Ativan 1 mg IV and Dilaudid 0.5 mg IV so that she may get a few hours of sleep. 10/12/20 06:10 I have spoke with Dr Townsend--vocational placement specialist surgeon and she is willing to come in and provide surgical repair to her nose and Lt ear lobe. I have aslo discussed this with vocational placement specialist [employer]-- Jimi and he will see her in the ED with view to surgical repair around 0800hrs this am. Tentatively she will be discharges to home later this am. Lt arm immobilizer for 4-5 days. Departure - Departure Time of Disposition: 08:00 Disposition: DC/Tfer to [facility] Access [facility] Condition: Fair Clinical Impression: Contusion of scalp, initial encounter, Laceration of multiple sites of face, Abrasion of right shoulder, initial encounter, Contusion of left shoulder or upper extremity, Contusion of left knee, initial encounter, Abrasion, left knee, initial encounter Traumatic hematoma of scalp Qualifiers: Encounter type: initial encounter Qualified Code(s): S00.03XA - Contusion of scalp, initial encounter Laceration of left earlobe Qualifiers: Encounter type: initial encounter Qualified Code(s): S01.312A - Laceration without foreign body of left ear, initial encounter Sprain of cervical neck Qualifiers: Encounter type: initial encounter Qualified Code(s): S13.9XXA - Sprain of joints and ligaments of unspecified parts of neck, initial encounter - Discharge Information *PRESCRIPTION DRUG MONITORING PROGRAM REVIEWED*: Not Applicable *COPY OF PRESCRIPTION DRUG MONITORING REPORT IN PATIENT HILDA: Not Applicable
[2020-10-11] MEDS ORDERED: Ondansetron 4 MG/2 ML SDV IVPUSH ONE (23:46)
[2020-10-12] MEDS ORDERED: HYDROmorphone 0.5 MG/0.5 ML Syringe IVPUSH ONE ×3 (00:45→07:21)
[2020-10-12] MEDS ORDERED: Metoclopramide 10 MG/2 ML SDV IVPUSH ONE (00:56)
[2020-10-12] MEDS ORDERED: LORazepam 2 MG/ML SDV IVPUSH ONE (02:42)
[2020-10-12] MEDS ORDERED: Lactated Ringers 1,000 ML IV SCH (07:00)
[2020-10-12] MEDS: Potassium Chloride 10 MEQ in Premix Bag 1 BAG IV SCH ×2 (07:30→08:14)
[2020-10-12] MEDS ORDERED: Scopolamine 1.5 MG Transdermal Patch TOP ONE (08:06)
--- NOTE | 2020-10-12 08:06 | PCM.PREANE ---
Preanesthetic Assessment - Procedure Proposed Procedure: repair of facial lacerations - Anesthesia/Transfusion/Family Hx Anesthesia History: Prior Anesthesia Reaction Type of Anesthesia Reaction: Excessive Nausea/Vomiting Transfusion History: No Prior Transfusion(s) Intubation History: Unknown - Review of Systems General: No Symptoms Pulmonary: No Symptoms (Smoker 20+ yrs ), Cough, Sputum Cardiovascular: No Symptoms, Palpitations Gastrointestinal: No Symptoms, Other (GERD) Neurological: No Symptoms, Other (chronic LBP) Other: Reports: Liver Problems (fatty liver), Depression, Anxiety - Physical Assessment NPO Status Date: 10/11/20 NPO Status Time: 20:00 Vital Signs: Last Vital Signs Temp 96.4 F L 10/11/20 23:28 Pulse 96 10/11/20 23:28 Resp 16 10/11/20 23:28 BP 123/113 H 10/11/20 23:28 Pulse Ox 98 10/11/20 23:28 Height: 1.68 m Weight: 81.647 kg ASA Class: 2E Mental Status: Alert & Oriented x3 Airway Class: Mallampati = 4 Dentition: Reports: Missing Tooth/Teeth (all molars and wisdom) Thyro-Mental Finger Breadths: 3 Mouth Opening Finger Breadths: 2 (pain in the jaw) ROM/Head Extension: Limited/Partial (lots of pain from injury, no fractures) Lungs: Clear to Auscultation, Decreased Breath Sounds Cardiovascular: Regular Rate, Murmurs - Lab Values: Laboratory Last Values WBC 9.55 K/mm3 (3.98-10.04) 10/11/20 23:44 RBC 4.42 M/mm3 (3.98-5.22) 10/11/20 23:44 Hgb 16.3 gm/dl (11.2-15.7) H D 10/11/20 23:44 Hct 45.1 % (34.1-44.9) H 10/11/20 23:44 MCV 102.0 fl (79.4-94.8) H D 10/11/20 23:44 MCH 36.9 pg (25.6-32.2) H 10/11/20 23:44 MCHC 36.1 g/dl (32.2-35.5) H 10/11/20 23:44 RDW Std Deviation 52.6 fL (36.4-46.3) H 10/11/20 23:44 Plt Count 255 K/mm3 (182-369) 10/11/20 23:44 MPV 9.9 fl (9.4-12.3) 10/11/20 23:44 Neut % (Auto) 72.1 % (34.0-71.1) H 10/11/20 23:44 Lymph % (Auto) 21.4 % (19.3-51.7) 10/11/20 23:44 [place] % (Auto) 5.3 % (4.7-12.5) 10/11/20 23:44 Eos % (Auto) 0.6 (0.7-5.8) L 10/11/20 23:44 Baso % (Auto) 0.1 % (0.1-1.2) 10/11/20 23:44 Neut # (Auto) 6.88 K/mm3 (1.56-6.13) H 10/11/20 23:44 Lymph # (Auto) 2.04 K/mm3 (1.18-3.74) 10/11/20 23:44 [place] # (Auto) 0.51 K/mm3 (0.24-0.36) H 10/11/20 23:44 Eos # (Auto) 0.06 K/mm3 (0.04-0.36) 10/11/20 23:44 Baso # (Auto) 0.01 K/mm3 (0.01-0.08) 10/11/20 23:44 PT 11.0 SECONDS (9.7-12.0) 10/11/20 23:44 INR 1.03 10/11/20 23:44 APTT 22.5 SECONDS (21.7-31.4) 10/11/20 23:44 Sodium 142 mEq/L (136-145) 10/11/20 23:44 Potassium 3.0 mEq/L (3.5-5.1) L 10/11/20 23:44 Chloride 104 mEq/L (98-107) 10/11/20 23:44 Carbon Dioxide 21 mEq/L (21-32) 10/11/20 23:44 Anion Gap 20.0 (5-15) H 10/11/20 23:44 BUN 6 mg/dL (7-18) L 10/11/20 23:44 Creatinine 0.9 mg/dL (0.55-1.02) 10/11/20 23:44 Est Cr Clr Drug Dosing 80.90 mL/min 10/11/20 23:44 Estimated GFR (MDRD) > 60 mL/min (>60) 10/11/20 23:44 BUN/Creatinine Ratio 6.7 (14-18) L 10/11/20 23:44 Glucose 117 mg/dL (70-99) H 10/11/20 23:44 Calcium 8.5 mg/dL (8.5-10.1) 10/11/20 23:44 Magnesium 2.0 mg/dL (1.8-2.4) 10/11/20 23:44 Total Bilirubin 0.9 mg/dL (0.2-1.0) 10/11/20 23:44 AST 61 U/L (15-37) H 10/11/20 23:44 ALT 24 U/L (14-59) 10/11/20 23:44 Alkaline Phosphatase 98 U/L (46-116) 10/11/20 23:44 Total Protein 8.1 g/dl (6.4-8.2) 10/11/20 23:44 Albumin 4.1 g/dl (3.4-5.0) 10/11/20 23:44 Globulin 4.0 gm/dL 10/11/20 23:44 Albumin/Globulin Ratio 1.0 (1-2) 10/11/20 23:44 HCG, Qual Negative (NEGATIVE) 10/11/20 23:44 Urine Color Yellow (Yellow) 10/12/20 04:07 Urine Appearance Slt cloudy (Clear) H 10/12/20 04:07 Urine pH 5.5 (5.0-8.0) 10/12/20 04:07 Ur Specific [place] > or = 1.030 (1.005-1.030) 10/12/20 04:07 Urine Protein 2+ (Negative) H 10/12/20 04:07 Urine Glucose (UA) Negative (Negative) 10/12/20 04:07 Urine Ketones 2+ (Negative) H 10/12/20 04:07 Urine Occult Blood Negative (Negative) 10/12/20 04:07 Urine Nitrite Negative (Negative) 10/12/20 04:07 Urine Bilirubin Negative (Negative) 10/12/20 04:07 Urine Urobilinogen 0.2 (0.2-1.0) 10/12/20 04:07 Ur Leukocyte Esterase Negative (Negative) 10/12/20 04:07 U Hyaline Cast (Auto) 20-30 /lpf (0-5) H 10/12/20 04:07 Urine RBC 0-5 /hpf (0-5) 10/12/20 04:07 Urine WBC 0-5 /hpf (0-5) 10/12/20 04:07 Ur Squamous Epith Cells 0-5 /hpf (0-5) 10/12/20 04:07 Urine Bacteria Moderate /hpf (FEW) H 10/12/20 04:07 Urine Mucus Many /hpf (FEW) H 10/12/20 04:07 Urine Opiates Screen Presumptive positive (RECHGD=521) H 10/12/20 04:07 Ur Buprenorphine Scrn Negative (CUTOFF=10) 10/12/20 04:07 Ur Oxycodone Screen Negative (JRL2WY=968) 10/12/20 04:07 Urine Methadone Screen Negative (HFRKBT=841) 10/12/20 04:07 Ur Propoxyphene Screen Negative (GEHUWL=138) 10/12/20 04:07 Ur Barbiturates Screen Negative (JEDVSP=185) 10/12/20 04:07 Ur Tricyclics Screen Negative (DMNROO=945) 10/12/20 04:07 Ur Phencyclidine Scrn Negative (CUTOFF=25) 10/12/20 04:07 Ur Amphetamine Screen Negative (QATIBL=829) 10/12/20 04:07 U Methamphetamines Scrn Negative (DCHEIK=548) 10/12/20 04:07 U Benzodiazepines Scrn Presumptive positive (OCAKOO=175) H 10/12/20 04:07 U Cocaine Metab Screen Negative (JJPPTS=505) 10/12/20 04:07 U Marijuana (THC) Screen Presumptive positive (CUTOFF=50) H 10/12/20 04:07 Ethyl Alcohol 0.20 gm% (0.00) 10/11/20 23:44 - Allergies Allergies/Adverse Reactions: Allergies Allergy/AdvReac Type Severity Reaction Status Date / Time latex Allergy Rash Verified 08/29/20 13:58 levofloxacin [From Levaquin] Allergy Itching Verified 08/29/20 13:58 - Acknowledgements Anesthesia Type Planned: General Anesthesia Pt an Appropriate Candidate for the Planned Anesthesia: Yes Alternatives and Risks of Anesthesia Discussed w Pt/Guardian: Yes Pt/Guardian Understands and Agrees with Anesthesia Plan: Yes PreAnesthesia Questionnaire HEENT History: Reports: None. 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 Neurological History: Reports: Migraines Psychiatric History: Reports: Addiction, Anxiety, Depression Other Psychiatric History: refuses medication, uses other techniques like color cordination, steps, and counting. Endocrine/Metabolic History: Reports: Obesity/BMI 30+ Hematologic History: Reports: None Immunologic History: Reports: None Oncologic (Cancer) History: Reports: None Dermatologic History: Reports: Psoriasis - Infectious Disease History Infectious Disease History: Reports: Chicken Pox, Measles - Past Surgical History Head Surgeries/Procedures: Reports: None HEENT Surgical History: Reports: Oral Surgery Other HEENT Surgeries/Procedures: wisdom teeth removed Cardiovascular Surgical History: Reports: None Respiratory Surgical History: Reports: None GI Surgical History: Reports: Cholecystectomy Female Surgical History: Reports: D&C, Tubal Ligation Endocrine Surgical History: Reports: None Neurological Surgical History: Reports: None Musculoskeletal Surgical History: Reports: None Oncologic Surgical History: Reports: None Dermatological Surgical History: Reports: None - SUBSTANCE USE Tobacco Use Status *Q: Unknown Ever Used Tobacco - HOME MEDS Home Medications: Home Meds Ibuprofen 800 mg PO Q6H PRN 07/02/20 [History] Promethazine [Phenergan] 25 mg PO Q6H PRN 07/02/20 [History] Sucralfate [Carafate] 1 gm PO ACBED #120 tab 07/03/20 [Rx] Cyclobenzaprine [Flexeril] 10 mg PO TID PRN #10 tab 08/29/20 [Rx] Hydrocodone/Acetaminophen [Hydrocodone-Acetamin 5-325 mg] 1 each PO Q4H PRN #10 tablet 08/29/20 [Rx] Lidocaine [Lidoderm] 1 each TP Q12H #10 adh..patch 08/29/20 [Rx] polyethylene glycoL 3350 [MiraLAX] 17 gm PO ASDIRECTED 08/29/20 [History] predniSONE [Prednisone] 20 mg PO ASDIRECTED #15 tablet 08/29/20 [Rx] oxyCODONE HCl/Acetaminophen [Percocet 5-325 mg Tablet] 1 - 2 each PO Q4H PRN #20 tablet 10/12/20 [Rx] - CURRENT (IN HOUSE) MEDS Current Meds: Current Medications Dextrose/Sodium Chloride (Dextrose 5%-Normal Saline) 1,000 mls @ 150 mls/hr IV ASDIRECTED [facility] Last Admin: 10/11/20 23:54 Dose: 150 mls/hr Documented by: Potassium Chloride 10 meq/ (Premix) 100 mls @ 100 mls/hr IV Q1H [facility] Stop: 10/12/20 08:59 Last Admin: 10/12/20 07:30 Dose: 100 mls/hr Documented by: Lactated Ringer's (Ringers, Lactated) 1,000 mls @ 125 mls/hr IV ASDIRECTED [facility] Last Admin: 10/12/20 07:29 Dose: 125 mls/hr Documented by: Discontinued Medications Hydromorphone HCl (Hydromorphone 0.5 Mg/0.5 Ml Syringe) 0.5 mg IVPUSH ONETIME ONE Stop: 10/11/20 23:32 Last Admin: 10/11/20 23:52 Dose: 0.5 mg Documented by: Hydromorphone HCl (Hydromorphone 0.5 Mg/0.5 Ml Syringe) 0.5 mg IVPUSH ONETIME ONE Stop: 10/12/20 00:46 Last Admin: 10/12/20 00:51 Dose: 0.5 mg Documented by: Hydromorphone HCl (Hydromorphone 0.5 Mg/0.5 Ml Syringe) 0.5 mg IVPUSH ONETIME ONE Stop: 10/12/20 02:43 Last Admin: 10/12/20 02:56 Dose: 0.5 mg Documented by: Hydromorphone HCl (Hydromorphone 0.5 Mg/0.5 Ml Syringe) 0.5 mg IVPUSH ONETIME ONE Stop: 10/12/20 07:22 Last Admin: 10/12/20 07:29 Dose: 0.5 mg Documented by: Cefazolin Sodium/Dextrose 1 gm (/ Premix) 50 mls @ 100 mls/hr IV ONETIME ONE Stop: 10/12/20 00:07 Last Admin: 10/11/20 23:54 Dose: 100 mls/hr Documented by: Lorazepam (Lorazepam 2 Mg/Ml Sdv) 1 mg IVPUSH ONETIME ONE Stop: 10/11/20 23:31 Last Admin: 10/11/20 23:46 Dose: 1 mg Documented by: Lorazepam (Lorazepam 2 Mg/Ml Sdv) 1 mg IVPUSH ONETIME ONE Stop: 10/12/20 02:43 Last Admin: 10/12/20 02:55 Dose: 1 mg Documented by: Metoclopramide HCl (Metoclopramide 10 Mg/2 Ml Sdv) 7.5 mg IVPUSH ONETIME ONE Stop: 10/12/20 00:57 Last Admin: 10/12/20 01:03 Dose: 7.5 mg Documented by: Ondansetron HCl (Ondansetron 4 Mg/2 Ml Sdv) 4 mg IVPUSH ONETIME ONE Stop: 10/11/20 23:47 Last Admin: 10/11/20 23:50 Dose: 4 mg Documented by:
[2020-10-12] MEDS ORDERED: Lidocaine 1% 4 ML ONE (08:36)
[2020-10-12] MEDS ORDERED: Dexamethasone 4 MG/ML 5 ML MDV ONE (08:36)
[2020-10-12] MEDS ORDERED: Ondansetron 4 MG/2 ML SDV ONE (08:36)
[2020-10-12] MEDS ORDERED: Succinylcholine/Sod PF 100 MG/5 ML SYRINGE IV ONE (08:36)
[2020-10-12] MEDS ORDERED: fentaNYL 100 MCG/2 ML SDV ONE ×2 (08:37→09:49)
[2020-10-12] MEDS ORDERED: Propofol 200 MG/20 ML SDV ONE (08:38)
[2020-10-12] MEDS ORDERED: Lidocaine 1% with EPINEPHrine 1:100,000 10 ML MDV ONE (08:40)
[2020-10-12] MEDS ORDERED: Bupivacaine 0.5% 30 ML SDV ONE (08:40)
[2020-10-12] MEDS ORDERED: Bacitracin Oint 15 GM Tube ONE (08:41)
[2020-10-12] MEDS ORDERED: Bupivacaine 0.5%/EPINEPHrine 1:200,000 50 ML MDV ONE (08:41)
[2020-10-12] MEDS ORDERED: Metoclopramide 10 MG/2 ML SDV ONE (08:44)
[2020-10-12] MEDS ORDERED: Midazolam 1 MG/ML 2 ML SDV ONE (08:48)
[2020-10-12] MEDS: Lidocaine 1% 30 ML SDV ONE ×2 (09:28→09:43)
[2020-10-12] MEDS ORDERED: fentaNYL 100 MCG/2 ML SDV IVPUSH PRN (09:36)
[2020-10-12] MEDS ORDERED: HYDROmorphone 0.5 MG/0.5 ML Syringe IVPUSH PRN (09:36)
--- NOTE | 2020-10-12 10:46 | PCM.HP.2 ---
H&P History of Present Illness - General Date of Service: 10/12/20 Admit Problem/Dx: Admission Diagnosis/Problem Admission Diagnosis/Problem Laceration Source of Information: Patient, Provider History Limitations: Reports: No Limitations - History of Present Illness Initial Comments - Free Text/Narative: The patient is a 35 y/o lady who presented last night after falling down 10-14 steps while intoxicated. She suffered blunt injury to the face with additional abrasions and ecchymoses on the extremities. She was kept overnight in the ED for her alcohol intoxication. Surgical consultation was requested for repair of the nose and ear lacerations since she would not be able to tolerated manipulation and laceration repair at bedside. Trauma CTs were reviewed with evidence of nasal bone fractures, without additional injury. Left Shoulder Pain Score (Numeric/FACES): 10 - Related Data Allergies/Adverse Reactions: Allergies Allergy/AdvReac Type Severity Reaction Status Date / Time latex Allergy Rash Verified 08/29/20 13:58 levofloxacin [From Levaquin] Allergy Itching Verified 08/29/20 13:58 Home Medications: Home Meds Ibuprofen 800 mg PO Q6H PRN 07/02/20 [History] Promethazine [Phenergan] 25 mg PO Q6H PRN 07/02/20 [History] Sucralfate [Carafate] 1 gm PO ACBED #120 tab 07/03/20 [Rx] Cyclobenzaprine [Flexeril] 10 mg PO TID PRN #10 tab 08/29/20 [Rx] Hydrocodone/Acetaminophen [Hydrocodone-Acetamin 5-325 mg] 1 each PO Q4H PRN #10 tablet 08/29/20 [Rx] Lidocaine [Lidoderm] 1 each TP Q12H #10 adh..patch 08/29/20 [Rx] polyethylene glycoL 3350 [MiraLAX] 17 gm PO ASDIRECTED 08/29/20 [History] predniSONE [Prednisone] 20 mg PO ASDIRECTED #15 tablet 08/29/20 [Rx] oxyCODONE HCl/Acetaminophen [Percocet 5-325 mg Tablet] 1 - 2 each PO Q4H PRN #20 tablet 10/12/20 [Rx] Past Medical History HEENT History: Reports: None. 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 Neurological History: Reports: Migraines Psychiatric History: Reports: Addiction, Anxiety, Depression Other Psychiatric History: refuses medication, uses other techniques like color cordination, steps, and counting. Endocrine/Metabolic History: Reports: Obesity/BMI 30+ Hematologic History: Reports: None Immunologic History: Reports: None Oncologic (Cancer) History: Reports: None Dermatologic History: Reports: Psoriasis - Infectious Disease History Infectious Disease History: Reports: Chicken Pox, Measles - Past Surgical History Head Surgeries/Procedures: Reports: None HEENT Surgical History: Reports: Oral Surgery Other HEENT Surgeries/Procedures: wisdom teeth removed Cardiovascular Surgical History: Reports: None Respiratory Surgical History: Reports: None GI Surgical History: Reports: Cholecystectomy Female Surgical History: Reports: D&C, Tubal Ligation Endocrine Surgical History: Reports: None Neurological Surgical History: Reports: None Musculoskeletal Surgical History: Reports: None Oncologic Surgical History: Reports: None Dermatological Surgical History: Reports: None Social & Family History - Family History Cardiac: Reports: NM Other Cardiac Family History: grandfather GI: Reports: Irritable Bowel Syndrome Other GI Family History: grandmother : Reports: UTI, Recurrent Other Family History: grandmother and self Musculoskeletal: Reports: Arthritis Other Musculoskeletal Family History: mother and grandmother, father, and grandfather Psychiatric: Reports: ADHD, Bipolar Other Psychiatric Family History: Son ADHD. Father bipolar Oncologic: Reports: Colon, Other (See Below) Other Oncologic Family History: Grandfather colon cancer. Grandmother stomach cancer - Tobacco Use Tobacco Use Status *Q: Unknown Ever Used Tobacco - Caffeine Use Caffeine Use: Reports: Tea - Living Situation & Occupation Living situation: Reports: , with Spouse, with Family (4 kids) Occupation: Unemployed H&P Review of Systems - Review of Systems: Review Of Systems: See Below General: Reports: No Symptoms HEENT: Reports: Ear Pain, Other (nose numbness) Pulmonary: Reports: Cough (chronic with smoking) Cardiovascular: Reports: No Symptoms Gastrointestinal: Reports: No Symptoms Genitourinary: Reports: No Symptoms Musculoskeletal: Reports: No Symptoms Skin: Reports: No Symptoms Neurological: Reports: No Symptoms Hematologic/Lymphatic: Reports: No Symptoms Exam - Exam Exam: See Below - Vital Signs Vital Signs: Last Vital Signs Temp 35.8 C L 10/11/20 23:28 Pulse 96 10/11/20 23:28 Resp 16 10/11/20 23:28 BP 123/113 H 10/11/20 23:28 Pulse Ox 98 10/11/20 23:28 Weight: 81.647 kg - Exam Quality Assessment: No: Supplemental Oxygen General: Alert, Oriented HEENT: Conjunctiva Clear, EOMI Neck: Supple Lungs: Clear to Auscultation, Normal Respiratory Effort Cardiovascular: Regular Rate, Regular Rhythm GI/Abdominal Exam: Soft, Non-Tender, No Distention Peripheral Pulses: 2+: Dorsalis Pedis (L), Dorsalis Pedis (R) Skin: Wound (stellate laceration to tip of nose, laceration of nasal bridge, lac eration to left ear) Neurological: Cranial Nerves Intact Neuro Extensive - Mental Status: Normal Mood/Affect - Patient Data Lab Results Last 24 hrs: Laboratory Results - last 24 hr 10/11/20 10/11/20 10/11/20 Range/Units 23:44 23:44 23:44 WBC 9.55 (3.98-10.04) K/mm3 RBC 4.42 (3.98-5.22) M/mm3 Hgb 16.3 H D (11.2-15.7) gm/dl Hct 45.1 H (34.1-44.9) % MCV 102.0 H D (79.4-94.8) fl MCH 36.9 H (25.6-32.2) pg MCHC 36.1 H (32.2-35.5) g/dl RDW Std Deviation 52.6 H (36.4-46.3) fL Plt Count 255 (182-369) K/mm3 MPV 9.9 (9.4-12.3) fl Neut % (Auto) 72.1 H (34.0-71.1) % Lymph % (Auto) 21.4 (19.3-51.7) % [place] % (Auto) 5.3 (4.7-12.5) % Eos % (Auto) 0.6 L (0.7-5.8) Baso % (Auto) 0.1 (0.1-1.2) % Neut # (Auto) 6.88 H (1.56-6.13) K/mm3 Lymph # (Auto) 2.04 (1.18-3.74) K/mm3 [place] # (Auto) 0.51 H (0.24-0.36) K/mm3 Eos # (Auto) 0.06 (0.04-0.36) K/mm3 Baso # (Auto) 0.01 (0.01-0.08) K/mm3 PT 11.0 (9.7-12.0) SECONDS INR 1.03 APTT 22.5 (21.7-31.4) SECONDS Sodium 142 (136-145) mEq/L Potassium 3.0 L (3.5-5.1) mEq/L Chloride 104 (98-107) mEq/L Carbon Dioxide 21 (21-32) mEq/L Anion Gap 20.0 H (5-15) BUN 6 L (7-18) mg/dL Creatinine 0.9 (0.55-1.02) mg/dL Est Cr Clr Drug Dosing 80.90 mL/min Estimated GFR (MDRD) > 60 (>60) mL/min BUN/Creatinine Ratio 6.7 L (14-18) Glucose 117 H (70-99) mg/dL Calcium 8.5 (8.5-10.1) mg/dL Magnesium 2.0 (1.8-2.4) mg/dL Total Bilirubin 0.9 (0.2-1.0) mg/dL AST 61 H (15-37) U/L ALT 24 (14-59) U/L Alkaline Phosphatase 98 (46-116) U/L Total Protein 8.1 (6.4-8.2) g/dl Albumin 4.1 (3.4-5.0) g/dl Globulin 4.0 gm/dL Albumin/Globulin Ratio 1.0 (1-2) HCG, Qual (NEGATIVE) Urine Color (Yellow) Urine Appearance (Clear) Urine pH (5.0-8.0) Ur Specific [place] (1.005-1.030) Urine Protein (Negative) Urine Glucose (UA) (Negative) Urine Ketones (Negative) Urine Occult Blood (Negative) Urine Nitrite (Negative) Urine Bilirubin (Negative) Urine Urobilinogen (0.2-1.0) Ur Leukocyte Esterase (Negative) U Hyaline Cast (Auto) (0-5) /lpf Urine RBC (0-5) /hpf Urine WBC (0-5) /hpf Ur Squamous Epith Cells (0-5) /hpf Urine Bacteria (FEW) /hpf Urine Mucus (FEW) /hpf Urine Opiates Screen (EPNLUX=074) Ur Buprenorphine Scrn (CUTOFF=10) Ur Oxycodone Screen (JRB1CN=551) Urine Methadone Screen (OSGBSY=877) Ur Propoxyphene Screen (WJHDEB=942) Ur Barbiturates Screen (JWCOVQ=197) Ur Tricyclics Screen (YOQBSC=523) Ur Phencyclidine Scrn (CUTOFF=25) Ur Amphetamine Screen (PULVOH=793) U Methamphetamines Scrn (QHNPXD=677) U Benzodiazepines Scrn (XHLTOU=945) U Cocaine Metab Screen (ZLMBCD=635) U Marijuana (THC) Screen (CUTOFF=50) Ethyl Alcohol 0.20 (0.00) gm% 10/11/20 10/12/20 10/12/20 Range/Units 23:44 04:07 04:07 WBC (3.98-10.04) K/mm3 RBC (3.98-5.22) M/mm3 Hgb (11.2-15.7) gm/dl Hct (34.1-44.9) % MCV (79.4-94.8) fl MCH (25.6-32.2) pg MCHC (32.2-35.5) g/dl RDW Std Deviation (36.4-46.3) fL Plt Count (182-369) K/mm3 MPV (9.4-12.3) fl Neut % (Auto) (34.0-71.1) % Lymph % (Auto) (19.3-51.7) % [place] % (Auto) (4.7-12.5) % Eos % (Auto) (0.7-5.8) Baso % (Auto) (0.1-1.2) % Neut # (Auto) (1.56-6.13) K/mm3 Lymph # (Auto) (1.18-3.74) K/mm3 [place] # (Auto) (0.24-0.36) K/mm3 Eos # (Auto) (0.04-0.36) K/mm3 Baso # (Auto) (0.01-0.08) K/mm3 PT (9.7-12.0) SECONDS INR APTT (21.7-31.4) SECONDS Sodium (136-145) mEq/L Potassium (3.5-5.1) mEq/L Chloride (98-107) mEq/L Carbon Dioxide (21-32) mEq/L Anion Gap (5-15) BUN (7-18) mg/dL Creatinine (0.55-1.02) mg/dL Est Cr Clr Drug Dosing mL/min Estimated GFR (MDRD) (>60) mL/min BUN/Creatinine Ratio (14-18) Glucose (70-99) mg/dL Calcium (8.5-10.1) mg/dL Magnesium (1.8-2.4) mg/dL Total Bilirubin (0.2-1.0) mg/dL AST (15-37) U/L ALT (14-59) U/L Alkaline Phosphatase (46-116) U/L Total Protein (6.4-8.2) g/dl Albumin (3.4-5.0) g/dl Globulin gm/dL Albumin/Globulin Ratio (1-2) HCG, Qual Negative (NEGATIVE) Urine Color Yellow (Yellow) Urine Appearance Slt cloudy H (Clear) Urine pH 5.5 (5.0-8.0) Ur Specific [place] > or = 1.030 (1.005-1.030) Urine Protein 2+ H (Negative) Urine Glucose (UA) Negative (Negative) Urine Ketones 2+ H (Negative) Urine Occult Blood Negative (Negative) Urine Nitrite Negative (Negative) Urine Bilirubin Negative (Negative) Urine Urobilinogen 0.2 (0.2-1.0) Ur Leukocyte Esterase Negative (Negative) U Hyaline Cast (Auto) 20-30 H (0-5) /lpf Urine RBC 0-5 (0-5) /hpf Urine WBC 0-5 (0-5) /hpf Ur Squamous Epith Cells 0-5 (0-5) /hpf Urine Bacteria Moderate H (FEW) /hpf Urine Mucus Many H (FEW) /hpf Urine Opiates Screen Presumptive positive H (TIDCRM=213) Ur Buprenorphine Scrn Negative (CUTOFF=10) Ur Oxycodone Screen Negative (LQT4YM=650) Urine Methadone Screen Negative (GBSLGJ=546) Ur Propoxyphene Screen Negative (FSFKSM=850) Ur Barbiturates Screen Negative (OKPXNF=177) Ur Tricyclics Screen Negative (QAJHHM=989) Ur Phencyclidine Scrn Negative (CUTOFF=25) Ur Amphetamine Screen Negative (SYKXIM=094) U Methamphetamines Scrn Negative (XHZUNE=243) U Benzodiazepines Scrn Presumptive positive H (XCAPSS=049) U Cocaine Metab Screen Negative (FEICDB=524) U Marijuana (THC) Screen Presumptive positive H (CUTOFF=50) Ethyl Alcohol (0.00) gm% Result Diagrams: 10/11/20 23:44 10/11/20 23:44 Sepsis Event Note - Evaluation Sepsis Screening Result: No Definite Risk - Focused Exam Vital Signs: Vital Signs Temp Pulse Resp BP Pulse Ox 10/11/20 23:28 35.8 C L 96 16 123/113 H 98 *Q Meaningful Use (ADM) - VTE Risk Assess *Q Each Risk Factor Represents 1 Point: Minor Surgery Planned Total Score 1 Point Risk Factors: 1 - Problem List (1) Abrasion of right shoulder, initial encounter SNOMED Code(s): 99904052843260952 ICD Code: S40.211A - ABRASION OF RIGHT SHOULDER, INITIAL ENCOUNTER Status: Acute Current Visit: Yes (2) Abrasion, left knee, initial encounter SNOMED Code(s): 70269764511430572 ICD Code: S80.212A - ABRASION, LEFT KNEE, INITIAL ENCOUNTER Status: Acute Current Visit: Yes (3) Contusion of left knee, initial encounter SNOMED Code(s): 84730407 ICD Code: S80.02XA - CONTUSION OF LEFT KNEE, INITIAL ENCOUNTER Status: Acute Current Visit: Yes (4) Contusion of left shoulder or upper extremity SNOMED Code(s): 81139626 ICD Code: [id number] - Status: Acute Current Visit: Yes (5) Contusion of scalp, initial encounter SNOMED Code(s): 66984752 ICD Code: S00.03XA - CONTUSION OF SCALP, INITIAL ENCOUNTER Status: Acute Current Visit: Yes (6) Laceration of left earlobe SNOMED Code(s): 174969820, 082986985 ICD Code: S01.312A - LACERATION WITHOUT FOREIGN BODY OF LEFT EAR, INIT ENCNTR Status: Acute Current Visit: Yes Qualifiers: Encounter type: initial encounter Qualified Code(s): S01.312A - Laceration without foreign body of left ear, initial encounter (7) Laceration of multiple sites of face SNOMED Code(s): 324342875 ICD Code: S01.81XA - LACERATION W/O FOREIGN BODY OF OTH PART OF HEAD, INIT ENCNTR Status: Acute Current Visit: Yes Problem List Initiated/Reviewed/Updated: No Orders Last 24hrs: Active Orders 24 hr Category Date Time Status Admission Status [Patient Status] [ADT] Routine ADT 10/12/20 08:10 Active Communication Order [RC] ASDIRECTED Care 10/12/20 09:36 Active Cooling Warming Measures [RC] ASDIRECTED Care 10/12/20 09:36 Active Oxygen Therapy [RC] ASDIRECTED Care 10/12/20 09:36 Active Pulse Oximetry [RC] ASDIRECTED Care 10/12/20 09:36 Active Vital Signs [RC] Q15M Care 10/12/20 09:36 Active Cervical Spine wo Cont [CT] Stat Exams 10/11/20 23:33 Taken Chest 1V Frontal [CR] Stat Exams 10/11/20 23:35 Taken Forearm 2V Lt [CR] Stat Exams 10/11/20 23:37 Taken Head wo Cont [CT] Stat Exams 10/11/20 23:31 Taken Humerus Lt [CR] Stat Exams 10/11/20 23:36 Taken Maxillofacial w/o CM [Max Facial Sinus wo Cont] [CT] Exams 10/11/20 23:32 Taken Stat Shoulder Comp Lt [CR] Stat Exams 10/11/20 23:34 Taken HYDROmorphone [Dilaudid] Med 10/12/20 09:36 Active 0.5 mg IVPUSH ONETIME PRN Lactated Ringers [Ringers, Lactated] 1,000 ml Med 10/12/20 07:00 Active IV ASDIRECTED fentaNYL [Sublimaze] Med 10/12/20 09:36 Active 100 mcg IVPUSH ONETIME PRN Durable Medical Equipment for Discharge [DME for Oth 10/12/20 06:04 Ordered Discharge] [COMM] Stat Schedule Procedure [COMM] Stat Oth 10/12/20 08:10 Ordered Medication Orders Fentanyl (Fentanyl 100 Mcg/2 Ml Sdv) 100 mcg IVPUSH ONETIME PRN PRN Reason: Pain Stop: 10/12/20 23:00 Hydromorphone HCl (Hydromorphone 0.5 Mg/0.5 Ml Syringe) 0.5 mg IVPUSH ONETIME PRN PRN Reason: Pain (severe 7-10) Stop: 10/12/20 23:00 Lactated Ringer's (Ringers, Lactated) 1,000 mls @ 125 mls/hr IV ASDIRECTED TAMMY Stop: 10/12/20 23:00 Last Admin: 10/12/20 07:29 Dose: 125 mls/hr Documented by: JOSE Assessment/Plan Comment:: 35 y/o lady with complex laceration of nose over nasal bone fractures, additional nasal bridge and left ear lacerations - plan for operative repair of the lacerations due to need for sedation and concern for airway safety after blood ingestion and facial trauma. Discussed risks of the procedure and possible tissue loss due to the nature of the lacerations. Her written consent was obtained. - no IV abx needed - NPO Will assess need for hospital stay based on recovery after surgery Kerri Fonseca MD General surgery - Mortality Measure Prognosis:: Good
--- NOTE | 2020-10-12 11:01 | PCM.OPNOTE ---
- General Post-Op/Procedure Note Date of Surgery/Procedure: 10/12/20 Operative Procedure(s): Laceration repair of nose and left ear Findings: 1. Nasal bridge laceration 1.5cm 2. Stellate laceration on tip of nose with intersecting 2cm and 3cm lacerations 3. left ear laceration along border of pinna 5cm with small piece of nonviable skin Pre Op Diagnosis: Lacerations of nose and left ear Post-Op Diagnosis: same Anesthesia Technique: General ET Tube, Local Primary Surgeon: Kerri Fonseca Anesthesia Provider: Jimi Hopper Pathology: none Fluid Replacement, Intraop: 900 Output, Urine Amount: 0 EBL in mLs: 5 Complications: none apparent Condition: Good
--- NOTE | 2020-10-12 11:02 | PCM.PRNOTE ---
- Free Text/Narrative Note: Operative Report Date of Surgery/Procedure: 10/12/20 Operative Procedure(s): Laceration repair of nose and left ear Pre Op Diagnosis: Lacerations of nose and left ear Post-Op Diagnosis: same Anesthesia Technique: General ET Tube, Local Primary Surgeon: Kerri Fonseca MD Anesthesia Provider: Jimi Hopper CRNA Findings: 1. Nasal bridge laceration 1.5cm 2. Stellate laceration on tip of nose with intersecting 2cm and 3cm lacerations 3. left ear laceration along border of pinna 5cm with small piece of nonviable skin Pathology: none Fluid Replacement, Intraop: 900cc Output, Urine Amount: 0 EBL in mLs: 5 Indication: The patient is a 35 y/o lady who presented to the ED with facial trauma after falling down 10-14 steps while intoxicated. We discussed operative repair of the lacerations. This was recommended due to need for sedation from the pain of the procedure and underlying nasal bone fractures, and concern for airway safety after blood ingestion and facial trauma. Discussed risks of the procedure and possible tissue loss due to the nature of the lacerations. Her written consent was obtained. Description of the procedure: The patient was taken to the OR and placed in supine position on the operating table. She had successful induction of general anesthesia with ET tube placed using the glide scope. She was then prepped and draped in standard surgical fashion with Betadine to the face due to the open lacerations. A surgical timeout was performed. No antibiotics were given due to the superficial nature of the wounds and the placement of the face. We began by irrigating the wounds with normal saline. This was done to cleanse the stellate laceration of the nose as well as the nasal black bridge and left ear lacerations. Once this was completed we began with measuring the wounds. The nasal bridge wound measured 1.5 cm. The nose wound was more complex with the lacerations involving the tip of the nose. This was in a stellate confirmation with a transverse laceration across the tip of the nose measuring 3 cm and an intersecting 2 cm laceration down the end of the nose between the nares. A small 2-3mm piece of skin at the intersection of the two lacerations appeared dusky, but was left to see if the wound closure would hold. The left earlobe laceration right along the edge of the left pinna and measured 5 cm. We then began to reapproximate the nasal bridge laceration with interrupted 5-0 sutures. We then turned our attention to the tip of the nose which was reapproximated with interrupted 5-0 Prolene sutures. Lastly we reapproximated the left ear laceration with interrupted 5-0 Prolene sutures. A 1.3 cm piece of vascularized skin was removed from the left ear laceration site to facilitate appropriate wound healing and closure. Vaseline gauze with bacitracin was then applied to the tip of the nose in the left ear with overlying dry dressing. Plain Vaseline gauze was placed on the bridge of the nose to prevent any bacitracin entering the eyes. The patient was then awakened from anesthesia after the stomach was appropriately suctioned. She was extubated without difficulty and transported to the PACU in stable condition. Sponge and needle counts were correct. Complications: none apparent Condition: Good Kerri Fonseca MD General surgery
--- NOTE | 2020-10-12 11:34 | PCM.POSTAN ---
POST ANESTHESIA ASSESSMENT - MENTAL STATUS Mental Status: Somnolent - VITAL SIGNS Vital Signs: Postop Vital Signs 135/68 94 HR 97% 23 RR 98.5F - RESPIRATORY Respiratory Status: Respiratory Rate WNL, Airway Patent, O2 Saturation Stable, Supplemental Oxygen - CARDIOVASCULAR CV Status: Pulse Rate WNL, Blood Pressure Stable - GASTROINTESTINAL GI Status: No Symptoms - PAIN Pain Score: 0 - POST OP HYDRATION Hydration Status: Adequate & Stable
--- NOTE | 2020-10-12 12:02 | CR ---
Chest: Frontal view of the chest was obtained. Comparison: Prior chest x-ray of 04/20/19. Heart size and mediastinum are within normal limits. Lungs are clear with no acute parenchymal change. No acute osseous finding is seen. Impression: 1. Nothing acute is seen on frontal chest x-ray. Diagnostic code #1
--- NOTE | 2020-10-12 12:03 | CR ---
Left forearm: 2 views of the left forearm were obtained. Comparison: No prior forearm study is available. No acute fracture or other bony abnormality is appreciated. Impression: 1. Nothing acute is seen on 2 view left forearm study. Diagnostic code #1
--- NOTE | 2020-10-12 12:21 | CT ---
CT cervical spine Technique: Multiple axial sections were obtained through the cervical spine. Reconstructed coronal and sagittal images were obtained. Comparison: No prior cervical spine imaging is available. Findings: Disc space narrowing is noted at C5-6 and lesser at C6-7. Posterior osteophytes as well as anterior osteophytes are seen at both of these levels. Other disc spaces are maintained. Vertebral body heights are maintained. No acute fracture is seen. Moderate narrowing is noted of the C5-6 neural foramina on the right side. Posterior osteophyte is seen off the C6 vertebral body which indents the anterior thecal sac causing at least mild central canal stenosis. No definite fracture or subluxation is seen. Impression: 1. Degenerative change at C5-6 and C6-7 as described above. 2. No acute fracture or subluxation is seen. Diagnostic code #2 I agree with preliminary report from [facility], finalized on 10/12/20, 2:25 AM CDT, code 1
--- NOTE | 2020-10-12 12:25 | CT ---
Head CT Technique: Multiple axial sections through the brain were obtained. Intravenous contrast was not utilized. Reconstructed coronal and sagittal images were obtained. Comparison: No prior intracranial imaging is available. Findings: Ventricles along with the basal cisterns and sulci over the convexities are within normal limits for the patient's age. No abnormal parenchymal densities are seen. No evidence of intracranial hemorrhage is seen. No midline shift or mass-effect is seen. Soft tissue swelling is seen within the frontal scalp. Bone window settings were reviewed. Visualized mastoid sinuses are clear. No acute calvarial abnormality is appreciated. Bilateral nasal bone fractures are noted. Subcutaneous air is seen mostly within the base of the nose. Impression: 1. Bilateral nasal bone fractures with adjacent soft tissue air. 2. Soft tissue swelling within the frontal scalp. 3. No acute intracranial abnormality is appreciated. Diagnostic code #3 I agree with preliminary report from [facility], finalized on 10/12/20, 2:01 AM CDT, code 1
--- NOTE | 2020-10-12 12:26 | CR ---
Left humerus: 2 views of the left humerus were obtained. Comparison: No prior humerus study is available. No fracture or other bony abnormality is appreciated. Impression: 1. Nothing acute is appreciated on 2 view left humerus study. Diagnostic code #1
--- NOTE | 2020-10-12 12:39 | PCM48HPAN ---
Post Anesthesia Note - EVALUATION WITHIN 48HRS OF ANESTHETIC Vital Signs in Normal Range: Yes Patient Participated in Evaluation: Yes Respiratory Function Stable: Yes Airway Patent: Yes Cardiovascular Function Stable: Yes Hydration Status Stable: Yes Pain Control Satisfactory: Yes Nausea and Vomiting Control Satisfactory: Yes Mental Status Recovered: Yes Vital Signs: Last Vital Signs Temp 98.5 F 10/12/20 11:30 Pulse 75 10/12/20 12:01 Resp 20 10/12/20 11:30 BP 133/76 10/12/20 12:01 Pulse Ox 100 10/12/20 12:01 - COMMENTS/OBSERVATIONS Free Text/Narrative:: Patient is being transferred to [facility] floor for extended recovery prior to home discharge
[2020-10-12 13:47] VITALS: BP 153/86; PULSE 99
--- NOTE | 2020-10-12 15:53 | CR ---
Left shoulder: 2 views of the left shoulder were obtained. Comparison: No prior shoulder study is available. Acromioclavicular and glenohumeral joints appear within normal limits. No fracture or other bony abnormality is appreciated. Impression: 1. No acute abnormality is appreciated on left shoulder study. Diagnostic code #1
--- NOTE | 2020-10-13 11:59 | CT ---
CT facial bones Technique: Multiple axial sections were obtained of the facial bones. Complete mandible was not included on the exam. Reconstructed coronal and sagittal images were obtained. Findings: Bilateral nasal bone fractures are noted. Subcutaneous air is seen at the base of the neck extending into the upper lip. Soft tissue swelling is seen within the ethmoid sinuses and within the left maxillary sinus as well as left sphenoid sinus. No fluid is seen within the paranasal sinuses. Mild soft tissue swelling is noted anterior to the visualized mandible. Slight soft tissue swelling is also noted in the area of the left zygomatic arch. Impression: 1. Bilateral nasal bone fractures. 2. Soft tissue swelling and air within the base of the nose extending into the upper lip. 3. Soft tissue swelling is seen anterior to the mandible and next to the left zygomatic arch. 4. Chronic appearing paranasal sinus findings. Diagnostic code #3 I agree with preliminary report from [facility], finalized on 10/12/20, 2:08 AM CDT, code 1
== END 2020-10-12 13:40 | disposition home or self-care (01) ==
LOC: JD.ED 23:21 → JD.SDS 10-12 08:23 → JD.MS 10-12 11:30 → JD.SDS 10-12 13:40
PROVIDERS: ATTEND Surgery
DX: S01.21XA Laceration without foreign body of nose, initial encounter (principal); S01.312A Laceration without foreign body of left ear, initial encounter; S80.212A Abrasion, left knee, initial encounter; S40.211A Abrasion of right shoulder, initial encounter; E66.9 Obesity, unspecified; K21.9 Gastro-esophageal reflux disease without esophagitis; Z88.8 Allergy status to other drugs, medicaments and biological substances; Z91.040 Latex allergy status; Z79.899 Other long term (current) drug therapy; Z98.890 Other specified postprocedural states; W10.9XXA Fall (on) (from) unspecified stairs and steps, initial encounter
CPT/HCPCS: 12015; 36415; 70450; 70486; 71045; 72125; 73030; 73060; 73090; 80053; 80306; 80307; 81001; 83735; 84703; 85025; 85610; 85730; A9270; J0330; J0690; J1100; J1170; J2060; J2250; J2405; J2704; J2765; J3010; J3480; J7042; J7120; 00300; 99140; 99285; J3490

== ENCOUNTER 2024-12-04 09:16 | Emergency (ER) | payer SELFPAY ==
[2024-12-04 10:07] LABS: BASOPHILS ABSOLUTE AUTO 0.1 K/mm3 (0.0-0.2); BASOPHILS PERCENT AUTO 0.5 % (0.0-1.0); EOSINOPHILS ABSOLUTE AUTO 0.1 K/mm3 (0.0-0.4); EOSINOPHILS PERCENT AUTO 0.5 % (0.0-6.0); IMMATURE GRAN ABSOLUTE AUTO 0.06 K/mm3 (0.00-0.05); IMMATURE GRAN PERCENT AUTO 0.6 % (0.0-0.4); LYMPHOCYTES ABSOLUTE AUTO 1.9 K/mm3 (1.0-4.8); LYMPHOCYTES PERCENT AUTO 18.7 % (24.0-44.0); MEAN PLATELET VOLUME 10.3 fl (9.4-12.3); MONOCYTES ABSOLUTE AUTO 0.8 K/mm3 (0.0-0.8); MONOCYTES PERCENT AUTO 7.5 % (0.0-8.0); NEUTROPHILS ABSOLUTE AUTO 7.5 K/mm3 (1.8-7.7); NEUTROPHILS PERCENT AUTO 72.2 % (41.0-71.0); NRBC ABSOLUTE 0.00 (0.00-0.02); NRBC PERCENT 0.0 % (0.0-0.2); PLATELET COUNT,PLT 339 K/mm3 (150-400); RED BLOOD CELL COUNT 4.46 M/mm3 (4.10-5.30); WHITE BLOOD CELL COUNT,WBC 10.39 K/mm3 (3.9-11.3)
[2024-12-04] MEDS: diphenhydrAMINE 50 MG/ML SDV IVPUSH ONE (10:23)
[2024-12-04] MEDS: droPERidol 2.5 MG/ML SDV IV ONE (10:25)
[2024-12-04] MEDS: Sodium Chloride 0.9% 10 ML Syringe FLUSH PRN (10:27)
[2024-12-04 10:31] LABS: A/G RATIO 0.8 (1-2); ALANINE AMINOTRANSFERASE,ALT 41.0 U/L (14-59); ASPARTATE AMNIOTRANSFERASE,AST 80.0 U/L (15-37); BILIRUBIN TOTAL 1.1 mg/dL (0.2-1.0); BLOOD UREA NITROGEN,BUN 2.0 mg/dL (7-18); CARBON DIOXIDE,CO2 25.0 mEq/L (21-32); CREATININE 1.1 mg/dL (0.55-1.02); EST CRCL DRUG DOSING (CG) 63.64 mL/min; ESTIMATED GFR 65.0 mL/min (>60); GLUCOSE RANDOM 146.0 mg/dL (70-99); POTASSIUM,K 2.7 mEq/L (3.5-5.1); PROTEIN TOTAL,TP 7.9 g/dl (6.4-8.2); SODIUM,NA 135.0 mEq/L (136-145)
[2024-12-04] MEDS ORDERED: Sodium Chloride 0.9% 10 ML Syringe FLUSH PRN (10:31)
[2024-12-04 10:33] LABS: CHLORIDE,CL 91.0 mEq/L (98-107)
[2024-12-04] MEDS: Iopamidol 612 MG/ML 100 ML Bottle IVPUSH ONE (10:44)
[2024-12-04 13:47] LABS: APPEARANCE,URINE CLEAR (Clear); GLUCOSE,URINE NEGATIVE (Negative); OCCULT BLOOD,URINE 2+ (Negative)
[2024-12-04 13:52] LABS: SQUAMOUS EPITHELIAL CELLS,UR 0-5 /hpf (0-5)
[2024-12-04] MEDS: Magnesium Sulf/Wat 4 GM/50 mL 4 GM in Premix Bag 1 BAG IV ONE (14:02)
[2024-12-04] MEDS: Potassium Chloride 20 MEQ Tab.ER PO ONE (14:03)
[2024-12-04 17:08] VITALS: BP 120/49; PULSE 90
== END 2024-12-04 19:22 | disposition home or self-care (01) ==
LOC: JD.ED 09:16
DX: R10.84 Generalized abdominal pain (principal); E83.42 Hypomagnesemia; E87.6 Hypokalemia; R79.89 Other specified abnormal findings of blood chemistry; E66.9 Obesity, unspecified; Z90.49 Acquired absence of other specified parts of digestive tract; Z71.41 Alcohol abuse counseling and surveillance of alcoholic; Z88.1 Allergy status to other antibiotic agents; Z91.040 Latex allergy status; Z68.30 Body mass index [BMI] 30.0-30.9, adult
CPT/HCPCS: 36415; 71045; 74177; 80053; 81001; 83690; 83735; 84703; 85025; 96361; 96365; 96366; 96368; 96375; 99284; A9270; J1200; J1790; J3475; J3480; J7030; Q9967